=== PATIENT | male | born 1945 | race Asian ===

== ENCOUNTER 2019-09-12 03:54 | Inpatient (IN) | payer OTHER, MEDICAID ==
[~2019-09-12] VITALS: Ht 182.9 cm; Wt 81.4 kg
[2019-09-12] MEDS ORDERED: Acetaminophen 650 MG SUPP RECTAL ONE (04:00)
--- NOTE | 2019-09-12 04:05 | Emergency Room Report ---
History of Present Illness General Chief Complaint: To Be Triaged Source: Medical Record, EMS Present Illness HPI This is a 74-year-old [place] male from [facility]. He has a history of COPD and failure to thrive. He presents with chief complaint of shortness of breath and tachycardia. Onset tonight. Unable to get any other history from patient because of his condition. History is from EMS and jail note. Per EMS, he was tachycardic and hypoxic. No reported cough or fever. No nausea or vomiting. He was hypoxic and was placed on a nonrebreather and brought here. Allergies: Coded Allergies: No Known Allergies (Unverified , 09/12/19) COVID-19 Screening Contact w/high risk pt: Yes Recent Travel to affected area: Yes Experienced COVID-19 symptoms?: Yes COVID-19 symptoms experienced: Shortness of Breath Patient History Past Medical History: see triage record, old chart reviewed, COPD Past Surgical History: other Pertinent Family History: none Social History: Denies: smoking Immunizations: other Reviewed Nursing Documentation: PMH: Agreed; PSxH: Agreed Review of Systems Constitutional: Reports: weakness Respiratory: Reports: shortness of breath All Other Systems: limited - Secondary to condition Physical Exam Sp02 EP Interpretation: abnormal General Appearance: moderate distress, cachetic, lethargic Head: normocephalic, atraumatic Eyes: bilateral eye PERRL, bilateral eye EOMI ENT: hearing grossly normal, normal pharynx Neck: full range of motion, supple, no meningismus Respiratory: chest non-tender, respiratory distress, decreased breath sounds, accessory muscle use Cardiovascular #1: regular rate, rhythm, no murmur, tachycardia Gastrointestinal: normal bowel sounds, non tender, no mass, no organomegaly, no bruit, non-distended Musculoskeletal: back normal, other - Contracted Psychiatric: normal inspection Skin: no rash Procedures Critical Care Time Critical Care Time Critical care is mandated in this patient who presented with sepsis from pneumonia. Patient require my urgent intervention to attenuate the risks of metabolic collapse which may lead to cardiovascular collapse and . Critical care time is 35 minutes excluding any reportable procedure. Critical care time included evaluation, multiple reevaluation, looking at old charts, interpreting laboratory and diagnostic data, discussing case with patient and family and consultants, and charting. Medical Decision Making Diagnostic Impression: Primary Impression: Sepsis Qualified Codes: A41.9 - Sepsis, unspecified organism; R65.20 - Severe sepsis without septic shock; J96.01 - Acute respiratory failure with hypoxia Additional Impressions: HCAP (healthcare-associated pneumonia) Anemia Qualified Codes: D64.9 - Anemia, unspecified Suspected COVID-19 virus infection Acute respiratory failure with hypoxia ER Course Patient presents with sepsis secondary to pneumonia. He is high risk for COVID even though first rapid COVID test negative. Antibiotic started. His tachycardia is probably secondary to infection and fever. Heart rate came down from 140s to 115 right now. Blood pressure stable. Will admit for IV fluid and antibiotics. Prognosis poor. I discussed the case with Dr. Meza who will admit. EKG Diagnostic Results Rate: tachycardiac Rhythm: NSR ST Segments: other - NSST changes Rhythm Strip Diag. Results EP Interpretation: yes Rate: 120 Rhythm: NSR, no PVC's, no ectopy Chest X-Ray Diagnostic Results Chest X-Ray Diagnostic Results : Chest X-Ray Ordered: Yes # of Views/Limited/Complete: 1 View Indication: Shortness of Breath EP Interpretation: Yes Interpretation: no effusion, no pneumothorax, other - copd, b/l infiltrates Impression: Other - copd, b/l infiltrates Electronically Signed by: Sb Brooks MD Status: improved Disposition: ADMITTED INPATIENT Condition: Critical Sb Brooks MD Sep 12, 2019 04:05
[2019-09-12] MEDS ORDERED: NORCO 5-325 TA1 EAC1 ORAL (04:27)
[2019-09-12] MEDS ORDERED: VITAMIN C250 MG ORAL (04:27)
[2019-09-12] MEDS ORDERED: MAALOX ADVANCE770 ML PO (04:27)
[2019-09-12] MEDS ORDERED: PROSCAR5 MG ORAL (04:27)
[2019-09-12] MEDS ORDERED: PROTONIX40 MG ORAL (04:27)
[2019-09-12] MEDS ORDERED: NITRO0.4 SL (04:27)
[2019-09-12] MEDS ORDERED: MULTIVITAMINS1 EAC2 ORAL (04:27)
[2019-09-12] MEDS ORDERED: FLOMAX0.4 MG ORAL (04:27)
[2019-09-12] MEDS ORDERED: FERROUS SULFAT325 MG ORAL (04:27)
[2019-09-12] MEDS ORDERED: COLACE100 MG ORAL (04:27)
[2019-09-12 04:38] VITALS: BP 102/59
[2019-09-12] MEDS ORDERED: dexAMETHasone 10mg/ml Inj IV ONE (04:45)
[2019-09-12] MEDS ORDERED: Cefepime HCl 1 GM in D5W 55 ML IVPB ONE (04:45)
[2019-09-12 05:07] LABS: APPEARANCE,URINE CLEAR; BILIRUBIN, URINE NEGATIVE (NEGATIVE); GLUCOSE, URINE (UA) NEGATIVE (NEGATIVE); KETONES,URINE NEGATIVE (NEGATIVE); LEUKOCYTE ESTERASE ,URINE NEGATIVE (NEGATIVE); NITRITE,URINE NEGATIVE (NEGATIVE); PH,URINE 7 (4.5-8.0); PROTEIN,URINE 1+ (NEGATIVE); UROBILINOGEN,URINE 4 MG/DL (0.0-1.0)
[2019-09-12 05:10] LABS: COLOR,URINE YELLOW
[2019-09-12 05:11] LABS: BASOPHILS % (AUTO) 1.5 % (0.0-2.0); EOSINOPHILS % (AUTO) 1.9 % (0.0-3.0); HEMATOCRIT 25.4 % (42.0-52.0); HEMOGLOBIN 8.5 G/DL (14.2-18.0); MEAN CORPUSCULAR VOLUME 95 FL (80-99); MONOCYTES % (AUTO) 7.1 % (1.0-10.0); NEUTROPHILS % (AUTO) 77.7 % (45.0-75.0); PLATELET COUNT 611 K/UL (150-450); RED BLOOD COUNT 2.67 M/UL (4.70-6.10); RED CELL DISTRIBUTION WIDTH 12.1 % (11.6-14.8); WHITE BLOOD COUNT 6.6 K/UL (4.8-10.8)
--- NOTE | 2019-09-12 05:22 | Diagnostic Imaging Report ---
EXAM: XR Chest, 1 View CLINICAL HISTORY: SOB TECHNIQUE: Frontal view of the chest. COMPARISON: No relevant prior studies available. FINDINGS/IMPRESSION: Severe emphysematous changes with hyperinflation. Correlate for COPD. Airspace opacities within the bilateral lower lobes and right upper lobe, suspicious for superimposed multifocal infiltrate. No pneumothorax. No definite pleural effusion. The heart is enlarged. The aorta is markedly tortuous. Enteric feeding tube terminates in the stomach.
[2019-09-12 05:34] LABS: ANION GAP 10 mmol/L (5-15); BLOOD UREA NITROGEN 22 mg/dL (7-18); CARBON DIOXIDE 25 MMOL/L (21-32); CHLORIDE 98 MMOL/L (98-107); CREATININE 0.9 MG/DL (0.55-1.30); POTASSIUM 4.3 MMOL/L (3.5-5.1); SODIUM 133 MMOL/L (136-145)
[2019-09-12 05:37] LABS: ALANINE AMINOTRANSFERASE 33 U/L (12-78); ALBUMIN 1.8 G/DL (3.4-5.0); ALBUMIN/GLOBULIN RATIO 0.3 (1.0-2.7); ALKALINE PHOSPHATASE 256 U/L (46-116); ASPARTATE AMINO TRANSFERASE 36 U/L (15-37); BILIRUBIN,TOTAL 0.3 MG/DL (0.2-1.0); CKMB 2.2 NG/ML (0.0-3.6); CREATINE KINASE 506 U/L (26-308)
--- NOTE | 2019-09-12 05:53 | Emergency Room Report ---
Sepsis Event Note Evaluation Current Stage of Sepsis: Sepsis Possible Source: Pulmonary Focused Exam Allergies: Coded Allergies: No Known Allergies (Unverified , 09/12/19) Date Exam Occurred: Sep 12, 2019 Time Exam Occurred: 05:53 Laboratory Studies Laboratory Tests Test 09/12/19 04:50 White Blood Count 6.6 K/UL (4.8-10.8) Red Blood Count 2.67 M/UL (4.70-6.10) L Hemoglobin 8.5 G/DL (14.2-18.0) L Hematocrit 25.4 % (42.0-52.0) L Mean Corpuscular Volume 95 FL (80-99) Mean Corpuscular Hemoglobin 31.9 PG (27.0-31.0) H Mean Corpuscular Hemoglobin Concent 33.6 G/DL (32.0-36.0) Red Cell Distribution Width 12.1 % (11.6-14.8) Platelet Count 611 K/UL (150-450) H Mean Platelet Volume 5.3 FL (6.5-10.1) L Neutrophils (%) (Auto) 77.7 % (45.0-75.0) H Lymphocytes (%) (Auto) 12.0 % (20.0-45.0) L Monocytes (%) (Auto) 7.1 % (1.0-10.0) Eosinophils (%) (Auto) 1.9 % (0.0-3.0) Basophils (%) (Auto) 1.5 % (0.0-2.0) Urine Color Yellow Urine Appearance Clear Urine pH 7 (4.5-8.0) Urine Specific [place] 1.005 (1.005-1.035) Urine Protein 1+ (NEGATIVE) H Urine Glucose (UA) Negative (NEGATIVE) Urine Ketones Negative (NEGATIVE) Urine Blood 3+ (NEGATIVE) H Urine Nitrite Negative (NEGATIVE) Urine Bilirubin Negative (NEGATIVE) Urine Urobilinogen 4 MG/DL (0.0-1.0) H Urine Leukocyte Esterase Negative (NEGATIVE) Urine RBC 2-4 /HPF (0 - 0) H Urine WBC 0 /HPF (0 - 0) Urine Squamous Epithelial Cells Few /LPF (NONE/OCC) Urine Bacteria None /HPF (NONE) Sodium Level 133 MMOL/L (136-145) L Potassium Level 4.3 MMOL/L (3.5-5.1) Chloride Level 98 MMOL/L (98-107) Carbon Dioxide Level 25 MMOL/L (21-32) Anion Gap 10 mmol/L (5-15) Blood Urea Nitrogen 22 mg/dL (7-18) H Creatinine 0.9 MG/DL (0.55-1.30) Estimat Glomerular Filtration Rate > 60 mL/min (>60) Glucose Level 233 MG/DL (74-106) H Lactic Acid Level 1.40 mmol/L (0.4-2.0) Calcium Level 8.0 MG/DL (8.5-10.1) L Total Bilirubin 0.3 MG/DL (0.2-1.0) Aspartate Amino Transf (AST/SGOT) 36 U/L (15-37) Alanine Aminotransferase (ALT/SGPT) 33 U/L (12-78) Alkaline Phosphatase 256 U/L (46-116) H Total Creatine Kinase 506 U/L (26-308) H Creatine Kinase MB 2.2 NG/ML (0.0-3.6) Creatine Kinase MB Relative Index 0.4 Troponin I 0.007 ng/mL (0.000-0.056) Total Protein 7.0 G/DL (6.4-8.2) Albumin 1.8 G/DL (3.4-5.0) L Globulin 5.2 g/dL Albumin/Globulin Ratio 0.3 (1.0-2.7) L Vital Signs Last 24 Hour Vital Signs Date Time Temp Pulse Resp B/P (MAP) Pulse Ox O2 Delivery O2 Flow Rate FiO2 09/12/19 04:38 134 33 Non-Rebreather 15.0 09/12/19 04:38 103.5 134 33 102/59 100 Non-Rebreather 15.0 09/12/19 04:01 100.6 143 43 143/43 (76) 97 Non-Rebreather Respiratory Exam: Crackles Cardiovascular Exam: RRR Capillary Refill: Less Than 2 Seconds Peripheral Pulse: Strong Pulse Location: Sb Johns MD Sep 12, 2019 05:53
[2019-09-12 08:00] VITALS: BP 122/67
[2019-09-12] MEDS ORDERED: Vancomycin 1.5gm/NS Premix IVPB ONE (08:30)
[2019-09-12] MEDS ORDERED: Piperacillin/Tazobactam 3.375 GM in NS 110 ML IVPB SCH (08:30)
[2019-09-12] MEDS: D5NS 1,000 ML IV SCH ×2 (08:53→18:35)
[2019-09-12] MEDS: Pantoprazole Inj IVP SCH (08:56)
--- NOTE | 2019-09-12 09:45 | History and Physical Report ---
DATE OF ADMISSION: 09/12/2019 CHIEF COMPLAINT: Respiratory failure. HISTORY OF PRESENT ILLNESS: The patient is an unfortunate 74-year-old male. He has a history of hypertension, diabetes, failure to thrive. He apparently was previously hospitalized at an outside hospital where he underwent workup for failure to thrive. This included a colonoscopy. During the procedure, he apparently developed a bowel perforation several days ago. He was transferred back to the custodial facility. He has been on a pureed diet. He has been doing poorly there. On the day of transfer here, he was noted to be febrile and short of breath and more confused. In the emergency room, he was febrile and tachypneic. He was placed on a non-rebreather. He had x-ray evidence of diffuse pneumonia. His rapid COVID was negative. He is now admitted for further evaluation and care. PAST MEDICAL HISTORY: As above. PAST SURGICAL HISTORY: Includes recent colonoscopy. CURRENT MEDICATIONS: Reconciled and reviewed. ALLERGIES: None. FAMILY HISTORY: None. SOCIAL HISTORY: There is no known history of tobacco, ethanol, or drugs. REVIEW OF SYSTEMS: From the patient is unobtainable as he is nonverbal. PHYSICAL EXAMINATION: VITAL SIGNS: Temperature 103.5, pulse 134, respirations 33, blood pressure 102/59. GENERAL: The patient is chronically ill, thin male. He was unresponsive. Does not open his eyes. Currently on a non-rebreather. HEENT: The head is normocephalic and atraumatic. Mucous membranes are dry. HEART: Regular rate and rhythm. LUNGS: Clear anteriorly. ABDOMEN: Soft, nontender, nondistended. EXTREMITIES: Without clubbing, cyanosis, or edema. LABORATORY DATA: White count 6, hemoglobin , platelets 611,000. Sodium is 133, potassium 4.3, BUN 22. CK of 506. Troponin was negative. UA was clear. Chest x-ray showed diffuse bilateral infiltrates. Rapid COVID was negative downstairs. ASSESSMENT: This is a 74-year-old male with a recent history of bowel perforation, treated conservatively, diabetes, hypertension, admitted with respiratory failure and hypoxemia secondary to pneumonia. PLAN: Repeat COVID PCR. Broad-spectrum IV antibiotics. Pulmonary, Infectious Disease, Cardiology, Surgery evaluations to be obtained. We will check a venous duplex of the legs. The patient will be hydrated. The patient's prognosis appears poor. This has been discussed with the patient's daughter, Maya. She will discuss with the rest of her family about possibly making him DNR, but currently she wants to maintain Full Code Status. Aaron Meza M.D. DR: MARTHA JOB#: [id number] CC:
[2019-09-12] MEDS: Piperacillin/Tazobactam 3.375 GM in NS 110 ML IVPB SCH ×2 (10:31→23:38)
--- NOTE | 2019-09-12 11:45 | Consultation ---
DATE OF CONSULTATION: 09/12/2019 PULMONARY CONSULTATION CONSULTING PHYSICIAN: Keith Diaz MD. REASON FOR CONSULTATION: Respiratory failure, pulmonary infiltrates. HISTORY OF PRESENT ILLNESS: This is a 74-year-old senior care patient. The patient with history of COPD, presents with increasing shortness of breath and significant tachycardia. The patient unable to give any history. The patient was seen and evaluated in the emergency room, was noted to be significantly hypoxemic. No nausea or vomiting. The patient was placed on a non-rebreather. Admitted to the [facility]. The patient is a Full Code per review. The patient's x-ray suggestive of bilateral pulmonary infiltrates. Rapid COVID swab was negative. The patient was admitted with severe sepsis at this time. The patient's care discussed and reviewed. The patient was started on antibiotics. I was called to assist to evaluate further. The patient unable to give any history at this time. PAST MEDICAL HISTORY: Notable for COPD, chronic encephalopathy, chronic pain syndrome, arthritis, BPH. MEDICATIONS: Reviewed. ALLERGIES: Reviewed. SOCIAL HISTORY: The patient is a senior care patient, mobility status unclear. REVIEW OF SYSTEMS: Unobtainable due to the patient's present state. FAMILY HISTORY: Unobtainable due to the patient's present state. PHYSICAL EXAMINATION: VITAL SIGNS: T-max 103.5, heart rate 110, respiratory rate 24, blood pressure 122/67. The patient is 100% on non-rebreather, presently saturating 100%. HEENT: Overall negative. LUNGS: Coarse breath sounds. CARDIAC: Tachycardic. ABDOMEN: Soft. EXTREMITIES: No significant edema. Remainder of exam deferred to possible COVID. LABORATORY DATA: Reviewed. Hemoglobin 8.5, white count normal. Chemistries noted. Sodium 133. Liver enzyme, alkaline phosphatase elevated to 256. Albumin is 1.8. Atrial blood gas 7.41/32/411 on 100%. Imaging of bilateral infiltrates. IMPRESSION: 1. Respiratory failure. 2. Acute hypoxemia. 3. Significant pneumonia, possible COVID. 4. Severe protein-calorie malnutrition. 5. Elevated alkaline phosphatase, possibly due to bone etiology. 6. Significant anemia likely of chronic disease. 7. BPH. RECOMMENDATIONS: Supportive care. IV hydration. IV antibiotics. Isolation for now. DVT prophylaxis. Consider dexamethasone. Pending repeat COVID, although presently negative, but may want to treat empirically. ID evaluation. Venous ultrasound to evaluate further due to immobility. We will follow closely and monitor for changes and the patient may need higher level of care if continues to worsened. Keith Diaz M.D. DR: PAT JOB#: [id number] CC: JOSÉ MIGUEL
--- NOTE | 2019-09-12 11:51 | Consultation ---
History of Present Illness General Date patient seen: Sep 12, 2019 Reason for Hospitalization: Altered Mental Status Present Illness HPI 74 year old male with multiple medical comorbidities presented to [facility] ED from care facility for evaluation of altered status, FTT, abnormal labs, tachypnea. Recent history of colonoscopy with perforation per report at outside facility treated conservatively. was discharged and recently in facility worsening condition. surgery called to evaluate and assist with care. patient seen, chart reviewed, patient examined. patient unable to provide history or participate in exam. ill appearing, fatigued, malnutrition. ng feeding tube in place. febrile, +SOB Allergies: Coded Allergies: No Known Allergies (Unverified , 09/12/19) COVID-19 Screening Contact w/high risk pt: Yes Recent Travel to affected area: Yes Experienced COVID-19 symptoms?: Yes COVID-19 symptoms experienced: Shortness of Breath Medication History Scheduled Ascorbic Acid* (Vitamin C*), 5 ML ORAL DAILY, (Reported) Docusate Sodium* (Colace*), 100 MG ORAL DAILY, (Reported) Ferrous Sulfate* (Ferrous Sulfate*), 330 MG ORAL DAILY, (Reported) Finasteride* (Proscar*), 5 MG ORAL DAILY, (Reported) Multivitamins* (Multivitamins*), 1 TAB ORAL DAILY, (Reported) Pantoprazole* (Protonix*), 40 MG ORAL DAILY, (Reported) Tamsulosin HCl (Flomax), 0.4 MG ORAL DAILY, (Reported) Scheduled PRN Hydrocodone Bit/Acetaminophen 5-325* ([place] 5-325 Tablet*), 1 TAB ORAL Q4H PRN for For Pain, (Reported) Nitroglycerin 0.4MG table* (Nitroglycerin*), 0.4 MG SL .Q5MIN X 3 DOSES PRN for CHEST PAIN, (Reported) Miscellaneous Medications Mag Hydrox/Al Hydrox/Simeth (Maalox Advanced Suspension), 770 ML PO, (Reported) Patient History Limited by: medical condition History Provided By: Medical Record, PMD Healthcare decision maker Resuscitation status Advanced Directive on File Past Medical/Surgical History Past Medical/Surgical History: (1) Fever (2) Shortness of breath (3) Tachycardia (4) Suspected COVID-19 virus infection (5) Anemia (6) Sepsis (7) Acute respiratory failure with hypoxia (8) HCAP (healthcare-associated pneumonia) Review of Systems Review of Symptoms -D-b-w-e-r-a-l- -R-O-S--:- -n-o- -h-m-p-g-h-t- -l-o-s-s- -o-r- -f-e-v-e-r- -F-z-u-d-u-s-m-i-s-i-c-a-l- -R-O-S--:- -n-o- -k-d-b-g-i-p-s-i-o-n- -o-r- -m-o-o-d- -p-m-s-n-g-e-s--,- -n-o- -x-u-z-o-r-y- -l-o-s-s- -Y-o-t-i-o-s-l-m-i-c- -R-O-S--:- -n-o- -o-v-b-u-a-l- -v-b-l-n-g-e-s- -o-r- -e-y-e- -n-j-g-b-o-r-t-i-o-n- -E-N-T- -R-O-S--:- -n-o- -n-a-s-a-l- -z-v-r-q-w-r-t-i-o-n--,- -f-n-x-r-i-n-g- -l-o-s-s--,- -a-w-w-z-w-i-e-s-s- -I-s-d-e-r-g-y- -a-n-d- -U-l-b-m-t-q-l-o-g-y- -R-O-S--:- -n-o- -j-k-s-e-r-g-i-c- -n-j-i-p-t-o-m-s- -o-r- -p-o-q-z-p-r-r-i-a- -V-u-w-j-w-q-r-q-s-i-c-a-l- -a-n-d- -H-o-x-j-q-c-t-i-c- -R-O-S--:- -n-o- -p-s-t-l-l-e-n- -z-v-t-n-d-s--,- -h-l-j-s-u-a-l- -b-w-a-e-d-i-n-g- -o-r- -a-h-s-i-s-i-n-g- -R-g-e-g-v-v-i-n-e- -R-O-S--:- -n-o- -l-k-a-y-u-r-i-a--,- -t-k-e-u-t-v-p-s-i-a- -,- -r-p-o-g-h-t- -w-p-d-n-g-e-s--,- -m-v-g-r-c-j-a-t-u-r-e- -w-r-q-l-l-d-r-a-n-c-e- -M-w-t-j-u-t-a-t-o-r-y- -R-O-S--:- -n-o- -c-o-u-g-h--,- -t-l-w-a-s-z-e-s-s- -o-f- -q-q-s-a-t-h--,- -o-r- -p-q-u-e-z-i-n-g- -N-s-z-f-k-b-g-v-g-c-u-l-a-r- -R-O-S--:- -n-o- -c-h-e-s-t- -p-a-i-n- -o-r- -r-s-v-p-n-e-a- -o-n- -p-z-e-r-t-i-o-n- -J-p-o-g-r-i-h-u-o-g-g-d-i-n-a-l- -R-O-S--:- -x-t-x-i-e-s- -d-r-y-q-d-y-n-a-l- -p-a-i-n--,- -d-u-u-g-h-t- -r-e-d- -b-l-o-o-d- -i-n- -s-t-o-o-l-.- -J-r-y-t-i-y-f-a-f-r-p-k-t-a-l- -R-O-S--:- -n-o- -f-k-m-l-g-i-a-s- -o-r- -e-v-y-c-x-t-l-g-i-a-s- -N-a-h-d-d-s-b-o-u-c-a-l- -R-O-S--:- -n-o- -T-I-A- -o-r- -c-z-r-o-k-e- -i-k-h-p-t-o-m-s- -F-u-e-j-k-f-o-a-w-g-i-c-a-l- -R-O-S--:- -n-o- -n-e-w- -o-r- -c-m-l-n-g-i-n-g- -s-k-i-n- -e-x-l-i-o-n-s--,- -g-v-x-h-e-s- -o-r- -j-r-p-r-i-t-i-s- unable to obtain given medical condition Physical Exam Physical Exam General appearance: mild distress, appears stated age Head: Normocephalic, without obvious abnormality, atraumatic, feeding tube in nares Eyes: conjunctivae/corneas clear. PERRL, EOM's intact. Fundi benign Throat: Lips, mucosa, and tongue normal. Teeth and gums normal Neck: supple, symmetrical, trachea midline, no adenopathy, thyroid: not enlarged, symmetric, no tenderness/mass/nodules, no carotid bruit and no JVD Lungs: clear to auscultation bilaterally Heart: regular rate and rhythm, S1, S2 normal, no murmur, click, rub or gallop Abdomen: soft, non-tender. Bowel sounds normal. No masses, no organomegaly Extremities: extremities normal, atraumatic, no cyanosis or edema Pulses: symmetric Skin: Skin color, texture, turgor normal. No rashes or lesions Neurologic: Grossly normal Last 24 Hour Vital Signs Date Time Temp Pulse Resp B/P (MAP) Pulse Ox O2 Delivery O2 Flow Rate FiO2 09/12/19 08:00 97.3 110 24 122/67 (85) 100 09/12/19 06:15 101.0 118 29 116/61 100 Non-Rebreather 15.0 09/12/19 04:38 134 33 Non-Rebreather 15.0 09/12/19 04:38 103.5 134 33 102/59 100 Non-Rebreather 15.0 09/12/19 04:36 101.0 09/12/19 04:01 100.6 143 43 143/43 (76) 97 Non-Rebreather Intake and Output 09/11/19 09/12/19 19:00 07:00 Intake Total 1055 ml Balance 1055 ml Intake Oral 0 ml IV Total 1055 ml Laboratory Tests Test 09/12/19 04:50 09/12/19 07:32 White Blood Count 6.6 K/UL (4.8-10.8) Red Blood Count 2.67 M/UL (4.70-6.10) L Hemoglobin 8.5 G/DL (14.2-18.0) L Hematocrit 25.4 % (42.0-52.0) L Mean Corpuscular Volume 95 FL (80-99) Mean Corpuscular Hemoglobin 31.9 PG (27.0-31.0) H Mean Corpuscular Hemoglobin Concent 33.6 G/DL (32.0-36.0) Red Cell Distribution Width 12.1 % (11.6-14.8) Platelet Count 611 K/UL (150-450) H Mean Platelet Volume 5.3 FL (6.5-10.1) L Neutrophils (%) (Auto) 77.7 % (45.0-75.0) H Lymphocytes (%) (Auto) 12.0 % (20.0-45.0) L Monocytes (%) (Auto) 7.1 % (1.0-10.0) Eosinophils (%) (Auto) 1.9 % (0.0-3.0) Basophils (%) (Auto) 1.5 % (0.0-2.0) Urine Color Yellow Urine Appearance Clear Urine pH 7 (4.5-8.0) Urine Specific [place] 1.005 (1.005-1.035) Urine Protein 1+ (NEGATIVE) H Urine Glucose (UA) Negative (NEGATIVE) Urine Ketones Negative (NEGATIVE) Urine Blood 3+ (NEGATIVE) H Urine Nitrite Negative (NEGATIVE) Urine Bilirubin Negative (NEGATIVE) Urine Urobilinogen 4 MG/DL (0.0-1.0) H Urine Leukocyte Esterase Negative (NEGATIVE) Urine RBC 2-4 /HPF (0 - 0) H Urine WBC 0 /HPF (0 - 0) Urine Squamous Epithelial Cells Few /LPF (NONE/OCC) Urine Bacteria None /HPF (NONE) Sodium Level 133 MMOL/L (136-145) L Potassium Level 4.3 MMOL/L (3.5-5.1) Chloride Level 98 MMOL/L (98-107) Carbon Dioxide Level 25 MMOL/L (21-32) Anion Gap 10 mmol/L (5-15) Blood Urea Nitrogen 22 mg/dL (7-18) H Creatinine 0.9 MG/DL (0.55-1.30) Estimat Glomerular Filtration Rate > 60 mL/min (>60) Glucose Level 233 MG/DL (74-106) H Lactic Acid Level 1.40 mmol/L (0.4-2.0) Calcium Level 8.0 MG/DL (8.5-10.1) L Total Bilirubin 0.3 MG/DL (0.2-1.0) Aspartate Amino Transf (AST/SGOT) 36 U/L (15-37) Alanine Aminotransferase (ALT/SGPT) 33 U/L (12-78) Alkaline Phosphatase 256 U/L (46-116) H Total Creatine Kinase 506 U/L (26-308) H Creatine Kinase MB 2.2 NG/ML (0.0-3.6) Creatine Kinase MB Relative Index 0.4 Troponin I 0.007 ng/mL (0.000-0.056) Total Protein 7.0 G/DL (6.4-8.2) Albumin 1.8 G/DL (3.4-5.0) L Globulin 5.2 g/dL Albumin/Globulin Ratio 0.3 (1.0-2.7) L Arterial Blood pH 7.418 (7.350-7.450) Arterial Blood Partial Pressure CO2 31.9 mmHg (35.0-45.0) L Arterial Blood Partial Pressure O2 411.0 mmHg (75.0-100.0) H Arterial Blood HCO3 20.1 mmol/L (22.0-26.0) L Arterial Blood Oxygen Saturation 99.5 % (95-100) Arterial Blood Base Excess -3.8 (-2-2) L Sameer Test Positive Microbiology Date/Time Source Procedure Growth Status 09/12/19 04:50 Nasopharynx SARS-CoV-2 RdRp Gene Assay - Final Complete 09/12/19 04:00 Rectum Received Height (Feet): 6 Weight (Pounds): 180 Medications Current Medications Medications (Trade) Dose Ordered Sig/Brooke Route PRN Reason Start Time Stop Time Status Last Admin Dose Admin Dextrose/Sodium Chloride 1,000 ml @ 100 mls/hr Q10H IV 09/12/19 07:30 10/12/19 07:29 09/12/19 08:53 Heparin Sodium (Porcine) (Heparin 5000 units/ml) 5,000 units EVERY 12 HOURS SUBQ 09/12/19 21:00 10/27/19 20:59 Pantoprazole (Protonix) 40 mg DAILY IVP 09/12/19 09:00 10/12/19 08:59 09/12/19 08:56 Piperacillin Sod/ Tazobactam Sod 3.375 gm/Sodium Chloride 110 ml @ 27.5 mls/hr EVERY 8 HOURS IVPB 09/12/19 10:30 09/19/19 10:29 09/12/19 10:31 Vancomycin HCl (Vanco pharmacy to dose) 1 ea DAILY PRN MISC Per rx protocol 09/12/19 07:15 10/12/19 07:14 Vancomycin HCl 750 mg/Sodium Chloride 275 ml @ 183.333 mls/hr Q12HR IVPB 09/12/19 21:00 09/17/19 20:59 Assessment/Plan Problem List: (1) Anemia ICD Codes: D64.9 - Anemia, unspecified SNOMED: 213270026, 515685822 Qualifiers: Qualified Codes: D64.9 - Anemia, unspecified (2) Sepsis Assessment & Plan: febrile, tachycardic, abnormal labs, sob, respiratory decline covid neg in ED recent colonoscopy with perf per report treated conservatively abd exam limited given medical condition but seemingly benign non distended, no pain upon exam CXR noted. labs reviewed KUB pending does not seem to be having acute abdominal process but concerning and ddx given recent history no acute surgical intervention planned will follow with serial exams and recs thank you ICD Codes: A41.9 - Sepsis, unspecified organism SNOMED: 84322711, 529497153 Qualifiers: Qualified Codes: A41.9 - Sepsis, unspecified organism; R65.20 - Severe sepsis without septic shock; J96.01 - Acute respiratory failure with hypoxia (3) Acute respiratory failure with hypoxia ICD Codes: J96.01 - Acute respiratory failure with hypoxia SNOMED: 50085249, 397333869 (4) HCAP (healthcare-associated pneumonia) ICD Codes: J18.9 - Pneumonia, unspecified organism SNOMED: 872167467, 160702475 (5) Fever ICD Codes: R50.9 - Fever, unspecified SNOMED: 779964411 (6) Shortness of breath ICD Codes: R06.02 - Shortness of breath SNOMED: 785904081 (7) Tachycardia ICD Codes: R00.0 - Tachycardia, unspecified SNOMED: 2335494 (8) Suspected COVID-19 virus infection ICD Codes: Z20.828 - Contact with and (suspected) exposure to other viral communicable diseases SNOMED: 005605042 Arnaldo Pinon Sep 12, 2019 11:51
[2019-09-12 12:00] VITALS: BP 107/62
--- NOTE | 2019-09-12 12:00 | Consultation ---
DATE OF CONSULTATION: 09/12/2019 INFECTIOUS DISEASES CONSULTATION CONSULTING PHYSICIAN: Leticia Flanagan MD. REFERRING PHYSICIAN: Aaron Meza MD. REASON FOR CONSULTATION: Pneumonia. HISTORY OF PRESENTING ILLNESS: This is a 74-year-old gentleman with history of diabetes, hypertension, status post colonoscopy and developed a bowel perforation, was transferred back to long term facility, but now he has had increasing fevers along with shortness of breath. He was found to have a pneumonia. His rapid COVID-19 test is negative. An Infectious Diseases consultation has been obtained for antibiotics. PAST MEDICAL HISTORY: 1. History of diabetes. 2. History of hypertension. 3. History of bowel perforation after colonoscopy. SOCIAL HISTORY: No history of smoking, alcohol, or drug use. FAMILY HISTORY: Unknown. REVIEW OF SYSTEMS: Unable to obtain currently. MEDICATIONS: As an inpatient, he is on IV vancomycin, Zosyn, subcutaneous heparin, Protonix. ALLERGIES: No known drug allergies. PHYSICAL EXAMINATION: VITAL SIGNS: Temperature of 97.3, T-max of 103.5, pulse of 110, respiratory rate 24, blood pressure 122/67, O2 saturation of 100%. He is on a non-rebreather mask 15 L of oxygen. Examination deferred due to possibility of COVID-19. LABORATORY AND DIAGNOSTIC DATA: White count 6.68, hemoglobin 8.5, hematocrit 25.4, MCV 95, platelet count of 611,000 with neutrophils of 77%. Sodium 133, potassium 4.3, chloride 98, bicarb 25, BUN 22, creatinine 0.9, glucose 233, calcium 8. Total bilirubin 0.3. AST 36, ALT 33, and alkaline phosphatase 256. CK of 506, CK-MB 2.2. Troponin . Total protein 7. Albumin 1.8. UA showing 0 white cells. COVID-19 rapid test was negative so far. Chest x-ray showing airspace opacities within the bilateral lower lobes and right upper lobe suspicious for multifocal infiltrate. ASSESSMENT: This is a 74-year-old gentleman with history of diabetes, hypertension, who underwent colonoscopy and had a bowel perforation and was now found to have: 1. Possible pneumonia. 2. COVID-19 rapid test is negative. 3. Diabetes. 4. Hypertension. PLAN: 1. Continue IV vancomycin and Zosyn. 2. Continue isolation. 3. COVID-19 test is pending. 4. We will order sputum for Gram stain and culture. 5. We will follow up cultures and adjust antibiotics accordingly. I would like to thank, Dr. Meza, for this consultation. Kentrelluntsylvester Flanagan M.D. DR: HENRI JOB#: [id number] CC: Aaron Meza MD.
[2019-09-12 16:08] VITALS: BP 127/81
--- NOTE | 2019-09-12 16:10 | Diagnostic Imaging Report ---
Indication: Abdominal distention Technique: Supine view of the abdomen Comparison: none Findings: There is a weighted nasogastric feeding tube projected in the gastric fundus. Prominent gas-filled bowel loops are seen in the mid abdomen. Uncertain as to whether these are dilated small bowel or nondilated colon. Stool is seen in the proximal and distal colon. No masses or unusual calcifications. Metallic objects project over the left pelvis. Uncertain as whether internal or external. Impression: Satisfactory position of nasogastric weighted feeding tube Prominent bowel loops, could represent mildly dilated small bowel versus nondilated colon. The former, nonspecific, most likely ileus but could represent small bowel obstruction Other findings as noted Findings discussed by phone with Dr. Pinon at the time of interpretation
[2019-09-12] MEDS ORDERED: D5NS 1000ml IV ONE (19:03)
[2019-09-12] MEDS ORDERED: Tubing IV Secondary IV ONE (19:03)
[2019-09-12 20:00] VITALS: BP 114/86
[2019-09-12] MEDS: Vancomycin 750mg/NS 275ml IVPB SCH ×2 (21:28)
[2019-09-12] MEDS: Heparin 5000 units/ml inj SUBQ SCH (21:30)
[2019-09-13] VITALS (7 sets, daily range): BP systolic 115–133; BP diastolic 45–84
[2019-09-13] MEDS: D5NS 1,000 ML IV SCH ×3 (04:03→22:43)
[2019-09-13] MEDS: Piperacillin/Tazobactam 3.375 GM in NS 110 ML IVPB SCH ×3 (06:06→22:43)
--- NOTE | 2019-09-13 08:19 | Pulmonology Progress Note ---
Subjective Allergies: Coded Allergies: No Known Allergies (Unverified , 09/12/19) Subjective overnight events reviewed care noted on oxygen Objective Last 24 Hour Vital Signs Date Time Temp Pulse Resp B/P (MAP) Pulse Ox O2 Delivery O2 Flow Rate FiO2 09/13/19 04:00 97.7 70 20 119/74 (89) 98 09/13/19 04:00 Non-Rebreather 09/13/19 03:36 105 09/13/19 00:00 Non-Rebreather 09/13/19 00:00 97.8 111 22 133/84 (100) 100 09/13/19 00:00 109 09/12/19 20:00 97.7 108 16 114/86 (95) 100 09/12/19 20:00 Non-Rebreather 09/12/19 19:04 104 09/12/19 16:10 Non-Rebreather 09/12/19 16:08 96.8 110 19 127/81 (96) 100 09/12/19 16:00 96 09/12/19 12:00 96.8 103 21 107/62 (77) 100 09/12/19 12:00 98 09/12/19 12:00 Non-Rebreather Intake and Output 09/12/19 09/13/19 19:00 07:00 Intake Total 924.167 ml 1581.670 ml Output Total 1100 ml 700 ml Balance -175.833 ml 881.670 ml Intake Oral 0 ml 0 ml IV Total 924.167 ml 1581.670 ml Output Urine Total 1100 ml 700 ml Objective deferred due to COVID+ Microbiology Date/Time Source Procedure Growth Status 09/12/19 04:50 Nasopharynx SARS-CoV-2 RdRp Gene Assay - Final Complete 09/12/19 04:00 Rectum Received Current Medications Medications (Trade) Dose Ordered Sig/Brooke Route PRN Reason Start Time Stop Time Status Last Admin Dose Admin Dextrose/Sodium Chloride 1,000 ml @ 100 mls/hr Q10H IV 09/12/19 07:30 10/12/19 07:29 09/13/19 04:03 Heparin Sodium (Porcine) (Heparin 5000 units/ml) 5,000 units EVERY 12 HOURS SUBQ 09/12/19 21:00 10/27/19 20:59 09/12/19 21:30 Pantoprazole (Protonix) 40 mg DAILY IVP 09/12/19 09:00 10/12/19 08:59 09/12/19 08:56 Piperacillin Sod/ Tazobactam Sod 3.375 gm/Sodium Chloride 110 ml @ 27.5 mls/hr EVERY 8 HOURS IVPB 09/12/19 10:30 09/19/19 10:29 09/13/19 06:06 Vancomycin HCl (Vanco pharmacy to dose) 1 ea DAILY PRN MISC Per rx protocol 09/12/19 07:15 10/12/19 07:14 Vancomycin HCl 750 mg/Sodium Chloride 275 ml @ 183.333 mls/hr Q12HR IVPB 09/12/19 21:00 09/17/19 20:59 09/12/19 21:28 Assessment/Plan Assessment/Plan IMPRESSION: 1. Respiratory failure. 2. Acute hypoxemia. 3. Significant pneumonia, possible COVID. 4. Severe protein-calorie malnutrition. 5. Elevated alkaline phosphatase, 6. Significant anemia likely of chronic disease. 7. BPH. PLAN care noted imaging reviewed on oxygen respiratory care on isolation DVT prophylaxis impression, plan, and exam edited and reviewed in detail care discussed with Keith Moore MD Sep 13, 2019 08:19
[2019-09-13] MEDS: Pantoprazole Inj IVP SCH (08:33)
[2019-09-13] MEDS: Heparin 5000 units/ml inj SUBQ SCH (08:34)
[2019-09-13] MEDS: Vancomycin 750mg/NS 275ml IVPB SCH ×4 (08:34→20:39)
[2019-09-13 09:08] LABS: HEMATOCRIT 23.8 % (42.0-52.0); HEMOGLOBIN 7.7 G/DL (14.2-18.0); MEAN CORPUSCULAR VOLUME 96 FL (80-99); PLATELET COUNT 603 K/UL (150-450); RED BLOOD COUNT 2.48 M/UL (4.70-6.10); RED CELL DISTRIBUTION WIDTH 12.2 % (11.6-14.8); WHITE BLOOD COUNT 5.3 K/UL (4.8-10.8)
--- NOTE | 2019-09-13 09:58 | Surgery Progress Note ---
Surgery Progress Note Subjective Additional Comments no acute events kub discussed with radiology. likely ileus no n/v/f/c cxr this AM reviewed at bedside fer parr Objective Last 24 Hour Vital Signs Date Time Temp Pulse Resp B/P (MAP) Pulse Ox O2 Delivery O2 Flow Rate FiO2 09/13/19 08:00 97.3 106 20 126/78 (94) 100 09/13/19 08:00 103 09/13/19 04:00 97.7 70 20 119/74 (89) 98 09/13/19 04:00 Non-Rebreather 09/13/19 03:36 105 09/13/19 00:00 Non-Rebreather 09/13/19 00:00 97.8 111 22 133/84 (100) 100 09/13/19 00:00 109 09/12/19 20:00 97.7 108 16 114/86 (95) 100 09/12/19 20:00 Non-Rebreather 09/12/19 19:04 104 09/12/19 16:10 Non-Rebreather 09/12/19 16:08 96.8 110 19 127/81 (96) 100 09/12/19 16:00 96 09/12/19 12:00 96.8 103 21 107/62 (77) 100 09/12/19 12:00 98 09/12/19 12:00 Non-Rebreather I&O Intake and Output 09/12/19 09/13/19 19:00 07:00 Intake Total 924.167 ml 1581.670 ml Output Total 1100 ml 700 ml Balance -175.833 ml 881.670 ml Intake Oral 0 ml 0 ml IV Total 924.167 ml 1581.670 ml Output Urine Total 1100 ml 700 ml Dressing: other Wound: other Drains: other Cardiovascular: RSR Respiratory: decreased breath sounds Abdomen: soft, distended - mild, non-tender, present bowel sounds Extremities: no edema, no tenderness, no cyanosis Laboratory Tests Test 09/13/19 09:00 White Blood Count 5.3 K/UL (4.8-10.8) Red Blood Count 2.48 M/UL (4.70-6.10) L Hemoglobin 7.7 G/DL (14.2-18.0) L Hematocrit 23.8 % (42.0-52.0) L Mean Corpuscular Volume 96 FL (80-99) Mean Corpuscular Hemoglobin 31.3 PG (27.0-31.0) H Mean Corpuscular Hemoglobin Concent 32.5 G/DL (32.0-36.0) Red Cell Distribution Width 12.2 % (11.6-14.8) Platelet Count 603 K/UL (150-450) H Mean Platelet Volume 5.3 FL (6.5-10.1) L Neutrophils (%) (Auto) % (45.0-75.0) Lymphocytes (%) (Auto) % (20.0-45.0) Monocytes (%) (Auto) % (1.0-10.0) Eosinophils (%) (Auto) % (0.0-3.0) Basophils (%) (Auto) % (0.0-2.0) Differential Total Cells Counted 100 Neutrophils % (Manual) 80 % (45-75) H Lymphocytes % (Manual) 14 % (20-45) L Monocytes % (Manual) 6 % (1-10) Eosinophils % (Manual) 0 % (0-3) Basophils % (Manual) 0 % (0-2) Band Neutrophils 0 % (0-8) Platelet Estimate Increased H Platelet Morphology Normal Hypochromasia 1+ Plan Problems: (1) Anemia (2) Sepsis Assessment & Plan: febrile, tachycardic, abnormal labs, sob, respiratory decline covid neg in ED recent colonoscopy with perf per report treated conservatively abd exam limited given medical condition but seemingly benign non distended, no pain upon exam CXR noted. labs reviewed KUB pending does not seem to be having acute abdominal process but concerning and ddx given recent history no acute surgical intervention planned will follow with serial exams and recs thank you KUB noted.. . likely ileus repeat in AM hold feeds for now IV fluids discussed with team (3) Acute respiratory failure with hypoxia (4) HCAP (healthcare-associated pneumonia) (5) Fever (6) Shortness of breath (7) Tachycardia (8) Suspected COVID-19 virus infection Arnaldo Pinon Sep 13, 2019 09:58
--- NOTE | 2019-09-13 10:29 | Infectious Diseases Prog Note ---
Assessment/Plan Assessment/Plan antibiotics : vancomycin iv, zosyn A 1. pneumonia on 2 liters O2, 100 percent saturation COVID 19 rapid test negative 2. diabetes mellitus 3. hypertension 4. bowel perforation P 1. continue iv vancomycin, zosyn 2. COVID 19 test pending 3. continue isolation Subjective ROS Limited/Unobtainable: Yes Allergies: Coded Allergies: No Known Allergies (Unverified , 09/12/19) Objective Last 24 Hour Vital Signs Date Time Temp Pulse Resp B/P (MAP) Pulse Ox O2 Delivery O2 Flow Rate FiO2 09/13/19 08:00 Nasal Cannula 2.0 09/13/19 08:00 97.3 106 20 126/78 (94) 100 09/13/19 08:00 103 09/13/19 04:00 97.7 70 20 119/74 (89) 98 09/13/19 04:00 Non-Rebreather 09/13/19 03:36 105 09/13/19 00:00 Non-Rebreather 09/13/19 00:00 97.8 111 22 133/84 (100) 100 09/13/19 00:00 109 09/12/19 20:00 97.7 108 16 114/86 (95) 100 09/12/19 20:00 Non-Rebreather 09/12/19 19:04 104 09/12/19 16:10 Non-Rebreather 09/12/19 16:08 96.8 110 19 127/81 (96) 100 09/12/19 16:00 96 09/12/19 12:00 96.8 103 21 107/62 (77) 100 09/12/19 12:00 98 09/12/19 12:00 Non-Rebreather Height (Feet): 6 Weight (Pounds): 180 Microbiology Date/Time Source Procedure Growth Status 09/12/19 04:50 Nasopharynx SARS-CoV-2 RdRp Gene Assay - Final Complete 09/12/19 04:00 Rectum Received Laboratory Tests Test 09/13/19 09:00 White Blood Count 5.3 K/UL (4.8-10.8) Red Blood Count 2.48 M/UL (4.70-6.10) L Hemoglobin 7.7 G/DL (14.2-18.0) L Hematocrit 23.8 % (42.0-52.0) L Mean Corpuscular Volume 96 FL (80-99) Mean Corpuscular Hemoglobin 31.3 PG (27.0-31.0) H Mean Corpuscular Hemoglobin Concent 32.5 G/DL (32.0-36.0) Red Cell Distribution Width 12.2 % (11.6-14.8) Platelet Count 603 K/UL (150-450) H Mean Platelet Volume 5.3 FL (6.5-10.1) L Neutrophils (%) (Auto) % (45.0-75.0) Lymphocytes (%) (Auto) % (20.0-45.0) Monocytes (%) (Auto) % (1.0-10.0) Eosinophils (%) (Auto) % (0.0-3.0) Basophils (%) (Auto) % (0.0-2.0) Differential Total Cells Counted 100 Neutrophils % (Manual) 80 % (45-75) H Lymphocytes % (Manual) 14 % (20-45) L Monocytes % (Manual) 6 % (1-10) Eosinophils % (Manual) 0 % (0-3) Basophils % (Manual) 0 % (0-2) Band Neutrophils 0 % (0-8) Platelet Estimate Increased H Platelet Morphology Normal Hypochromasia 1+ Current Medications Medications (Trade) Dose Ordered Sig/Brooke Route PRN Reason Start Time Stop Time Status Last Admin Dose Admin Dextrose (Dextrose 50%) 25 ml Q30M PRN IV Hypoglycemia 09/13/19 09:45 12/12/19 09:44 Dextrose (Dextrose 50%) 50 ml Q30M PRN IV Hypoglycemia 09/13/19 09:45 12/12/19 09:44 Dextrose/Sodium Chloride 1,000 ml @ 100 mls/hr Q10H IV 09/12/19 07:30 10/12/19 07:29 09/13/19 08:35 Heparin Sodium (Porcine) (Heparin 5000 units/ml) 5,000 units EVERY 12 HOURS SUBQ 09/12/19 21:00 10/27/19 20:59 09/12/19 21:30 Insulin Aspart (NovoLOG) BEFORE MEALS AND HS SUBQ 09/13/19 11:30 12/12/19 11:29 Pantoprazole (Protonix) 40 mg DAILY IVP 09/12/19 09:00 10/12/19 08:59 09/13/19 08:33 Piperacillin Sod/ Tazobactam Sod 3.375 gm/Sodium Chloride 110 ml @ 27.5 mls/hr EVERY 8 HOURS IVPB 09/12/19 10:30 09/19/19 10:29 09/13/19 06:06 Vancomycin HCl (Vanco pharmacy to dose) 1 ea DAILY PRN MISC Per rx protocol 09/12/19 07:15 10/12/19 07:14 Vancomycin HCl 750 mg/Sodium Chloride 275 ml @ 183.333 mls/hr Q12HR IVPB 09/12/19 21:00 09/17/19 20:59 09/13/19 08:34 Leticia Flanagan MD Sep 13, 2019 10:29
[2019-09-13] MEDS: NovoLOG Insulin Flexpen SUBQ SCH ×3 (11:30→21:00)
[2019-09-13] MEDS ORDERED: NovoLOG Insulin Flexpen SUBQ SCH (11:50)
--- NOTE | 2019-09-13 12:10 | Diagnostic Imaging Report ---
Indication: Tortuous of breath Technique: One view of the chest Comparison: 09/12/2019 Findings: Stable satisfactory position of weighted feeding tube. Diffuse right lung infiltrates and left perihilar and basilar infiltrates are unchanged. The heart size is normal. The pleural spaces are clear Impression: Unchanged, over one day, findings as above.
--- NOTE | 2019-09-13 15:23 | Diagnostic Imaging Report ---
Indication: Reason For Exam: DVT Technique: Grayscale and duplex images of the bilateral lower extremity veins Comparison: None Findings: Bilaterally, grayscale and duplex images demonstrate no evidence of intraluminal thrombus. Normal phasic Doppler waveforms, demonstrating normal augmentation response and no evidence of valvular insufficiency. Greater saphenous vein(s) and tibial veins are patent. Normal compressibility. Impression: Negative for evidence of lower extremity deep venous thrombosis bilaterally
--- NOTE | 2019-09-13 16:26 | General Progress Note ---
Assessment/Plan Problem List: (1) Bowel perforation ICD Codes: K63.1 - Perforation of intestine (nontraumatic) SNOMED: 76035122 (2) Anemia ICD Codes: D64.9 - Anemia, unspecified SNOMED: 924156506, 506486198 Qualifiers: Qualified Codes: D64.9 - Anemia, unspecified (3) Sepsis ICD Codes: A41.9 - Sepsis, unspecified organism SNOMED: 82004157, 466136121 Qualifiers: Qualified Codes: A41.9 - Sepsis, unspecified organism; R65.20 - Severe sepsis without septic shock; J96.01 - Acute respiratory failure with hypoxia (4) Tachycardia ICD Codes: R00.0 - Tachycardia, unspecified SNOMED: 7824273 (5) Fever ICD Codes: R50.9 - Fever, unspecified SNOMED: 290628611 (6) HCAP (healthcare-associated pneumonia) ICD Codes: J18.9 - Pneumonia, unspecified organism SNOMED: 167248316, 278221225 (7) Acute respiratory failure with hypoxia ICD Codes: J96.01 - Acute respiratory failure with hypoxia SNOMED: 94137776, 017088284 Status: stable Assessment/Plan: stable cont current rx wean o2 resp rx suctioning as needed IVF monitor h/h check iron panel and stool ob may need transfusion tomorrow PPI No chest compressions. Intubation OK per DTR Subjective ROS Limited/Unobtainable: No Constitutional: Reports: malaise, weakness HEENT: Reports: no symptoms Cardiovascular: Reports: no symptoms Respiratory: Reports: cough, SOB with excertion, SOB at rest Gastrointestinal/Abdominal: Reports: no symptoms Genitourinary: Reports: no symptoms Neurologic/Psychiatric: Reports: emotional problems, pre-existing deficit Endocrine: Reports: no symptoms Hematologic/Lymphatic: Reports: no symptoms Allergies: Coded Allergies: No Known Allergies (Unverified , 09/12/19) All Systems: reviewed and negative except above Subjective no events. stable on 2L NC. poorly responsive. no fever or chills. +sob but seems less congestion. off venti mask now. decreased h/h noted. no bleeding. Objective Last 24 Hour Vital Signs Date Time Temp Pulse Resp B/P (MAP) Pulse Ox O2 Delivery O2 Flow Rate FiO2 09/13/19 15:56 111 09/13/19 12:00 97.7 106 20 127/73 (91) 100 09/13/19 12:00 105 09/13/19 12:00 Nasal Cannula 2.0 09/13/19 11:30 97.7 106 20 125/45 (71) 100 09/13/19 08:00 Nasal Cannula 2.0 09/13/19 08:00 97.3 106 20 126/78 (94) 100 09/13/19 08:00 103 09/13/19 04:00 97.7 70 20 119/74 (89) 98 09/13/19 04:00 Non-Rebreather 09/13/19 03:36 105 09/13/19 00:00 Non-Rebreather 09/13/19 00:00 97.8 111 22 133/84 (100) 100 09/13/19 00:00 109 09/12/19 20:00 97.7 108 16 114/86 (95) 100 09/12/19 20:00 Non-Rebreather 09/12/19 19:04 104 Intake and Output 09/12/19 09/13/19 19:00 07:00 Intake Total 924.167 ml 1581.670 ml Output Total 1100 ml 700 ml Balance -175.833 ml 881.670 ml Intake Oral 0 ml 0 ml IV Total 924.167 ml 1581.670 ml Output Urine Total 1100 ml 700 ml Laboratory Tests 09/13/19 09:00: White Blood Count 5.3, Red Blood Count 2.48L, Hemoglobin 7.7L, Hematocrit 23.8L , Mean Corpuscular Volume 96, Mean Corpuscular Hemoglobin 31.3H, Mean Corpuscular Hemoglobin Concent 32.5, Red Cell Distribution Width 12.2, Platelet Count 603H, Mean Platelet Volume 5.3L, Neutrophils (%) (Auto) , Lymphocytes (%) (Auto) , Monocytes (%) (Auto) , Eosinophils (%) (Auto) , Basophils (%) (Auto) , Differential Total Cells Counted 100, Neutrophils % (Manual) 80H, Lymphocytes % (Manual) 14L, Monocytes % (Manual) 6, Eosinophils % (Manual) 0, Basophils % ( Manual) 0, Band Neutrophils 0, Platelet Estimate IncreasedH, Platelet Morphology Normal, Hypochromasia 1+ 09/13/19 11:41: POC Whole Blood Glucose 153H Height (Feet): 6 Weight (Pounds): 180 General Appearance: WD/WN, lethargic, confused, cachetic EENT: PERRL/EOMI, normal ENT inspection Neck: non-tender, normal alignment Cardiovascular: normal rate, regular rhythm Respiratory/Chest: no respiratory distress, no accessory muscle use, rhonchi - bilaterally Abdomen: normal bowel sounds, non tender, soft, no organomegaly, no mass Edema: no edema noted Arm (L), no edema noted Arm (R), no edema noted Leg (L), no edema noted Leg (R), no edema noted Pedal (L), no edema noted Pedal (R), no edema noted Generalized Neurologic: disoriented, aphasia Skin: normal pigmentation Lymphatic: normal anterior cervical (L), normal anterior cervical (R) Aaron Meza MD Sep 13, 2019 16:26
[2019-09-13] MEDS ORDERED: Vancomycin 1 GM in NS 275 ML IVPB SCH (22:00)
[2019-09-14] VITALS: BP 123/67
--- NOTE | 2019-09-14 01:00 | Progress Note ---
DATE: 09/13/2019 CARDIOLOGY PROGRESS NOTE SUBJECTIVE: Patient remains with shortness of breath. Abdominal distention and signs of radiographic signs of ileus is noted. No acute perforation seen or free air. PHYSICAL EXAMINATION: GENERAL: Blood pressure 127/73, heart rate 106, respirations 20, afebrile, oxygen saturation 100% on 2 liters now. LUNGS: Bilateral rales. CARDIAC: Regular rhythm and rate. Normal S1, S2. ABDOMEN: Distended and soft. EXTREMITIES: No edema. LABORATORY DATA: White count 5.3, hemoglobin 7.7. Lactic acid 1.4. IMPRESSION: 1. Healthcare-associated pneumonia. 2. Ileus. 3. Severe sepsis. 4. Anemia. 5. Sinus tachycardia. 6. Type 2 diabetes mellitus. PLAN: 1. Antimicrobials. 2. Bowel rest. 3. Hydration. 4. May need transfusion. 5. Insulin coverage by sliding scale. 6. DVT prophylaxis. 7. Serial imaging studies of the abdomen. 8. NPO for now. Avila Ramos M.D. DR: MACEY JOB#: [id number] CC:
--- NOTE | 2019-09-14 01:14 | Consultation ---
DATE OF CONSULTATION: 09/12/2019 CARDIOLOGY CONSULTATION CONSULTING PHYSICIAN: Avila Ramos MD. REASON FOR CONSULTATION: Severe sepsis and respiratory failure. HISTORY OF PRESENT ILLNESS: This is a 74-year-old male residing in a half-way facility and recently hospitalized for complications of abdominal perforation was transferred to this emergency room for evaluation of acute shortness of breath and fever. In the emergency room, he was placed on a non-rebreather mask. Initial rapid COVID-19 swab was negative. In view of his acuity of his presentation and severity of his condition, cardiovascular consultation has been requested. PAST MEDICAL HISTORY: 1. Type 2 diabetes mellitus. 2. Prostatic hypertrophy. 3. Hypertension. 4. Cerebrovascular disease. 5. Anemia. ALLERGIES: None known. MEDICATIONS: Prior to admission, reviewed and reconciled. FAMILY HISTORY: Noncontributory. SOCIAL HISTORY: No record available regarding prior history of smoking, alcohol, or substance abuse. Presently, resides in a half-way facility. REVIEW OF SYSTEMS: Again, not obtainable from patient due to the severity of his condition. Hospital and [facility] records have been reviewed with 20 minutes time spent and all available pertinent data has been documented above. PHYSICAL EXAMINATION: VITAL SIGNS: Temperature 103.5, blood pressure 102/59, heart rate 134, respiratory rate 33, oxygen saturation on a non-rebreather mask at 15 liters is 100%. GENERAL: Ill-appearing. Moderate respiratory distress. HEENT: Temporal wasting. LUNGS: Accessory muscle use. Bilateral rales and rhonchi. CARDIAC: Regular rhythm. Rapid rate. Normal S1, S2. ABDOMEN: Slightly distended, but soft. No guarding or rebound. EXTREMITIES: Without edema. Distal pulses palpable. Capillary refill is diminished. No mottling. Lethargic, but moves all extremities. LABORATORY DATA: White count 6.6, hemoglobin 8.5. ABG 7.42, 32, 411. Troponin is negative. Lactic acid normal. Albumin 1.8. CK 506, MB negative. Liver function within normal limits. BUN 22, creatinine 0.9, bicarb 25, sodium 133, potassium 4.3. IMPRESSION: 1. Respiratory failure. 2. Severe sepsis. 3. Hypoxia. 4. Sinus tachycardia. 5. Fevers. 6. Hypovolemia and dehydration. 7. Healthcare-acquired pneumonia. 8. Possible ileus. 9. Condition critical. 10. Prognosis guarded. PLAN: 1. Cardiac monitoring. 2. IV antimicrobials. 3. Oxygenation. 4. Venous duplex scan. 5. Volume support. 6. NPO for now. 7. We will follow and make recommendations as needed. Avila Ramos M.D. DR: MACEY JOB#: [id number] CC:
[2019-09-14 04:00] VITALS: BP 123/67
[2019-09-14 05:29] LABS: HEMATOCRIT 22.5 % (42.0-52.0); HEMOGLOBIN 7.3 G/DL (14.2-18.0); MEAN CORPUSCULAR VOLUME 96 FL (80-99); PLATELET COUNT 618 K/UL (150-450); RED BLOOD COUNT 2.33 M/UL (4.70-6.10); RED CELL DISTRIBUTION WIDTH 12.3 % (11.6-14.8); WHITE BLOOD COUNT 6.9 K/UL (4.8-10.8)
[2019-09-14 06:00] LABS: ALANINE AMINOTRANSFERASE 32 U/L (12-78); ALBUMIN 1.5 G/DL (3.4-5.0); ALBUMIN/GLOBULIN RATIO 0.4 (1.0-2.7); ALKALINE PHOSPHATASE 162 U/L (46-116); ANION GAP 11 mmol/L (5-15); ASPARTATE AMINO TRANSFERASE 39 U/L (15-37); BILIRUBIN,TOTAL 0.2 MG/DL (0.2-1.0); BLOOD UREA NITROGEN 15 mg/dL (7-18); CALCIUM 7.5 MG/DL (8.5-10.1); CARBON DIOXIDE 23 MMOL/L (21-32); CHLORIDE 111 MMOL/L (98-107); CREATININE 0.7 MG/DL (0.55-1.30); POTASSIUM 2.8 MMOL/L (3.5-5.1); SODIUM 144 MMOL/L (136-145)
[2019-09-14] MEDS: Vancomycin 1 GM in NS 275 ML IVPB SCH ×2 (06:17→19:22)
[2019-09-14] MEDS: Piperacillin/Tazobactam 3.375 GM in NS 110 ML IVPB SCH ×3 (06:18→22:29)
[2019-09-14] MEDS: NovoLOG Insulin Flexpen SUBQ SCH ×4 (06:18→20:20)
[2019-09-14 06:42] LABS: % IRON SATURATION 20 % (15-50); IRON 25 ug/dL (50-175); TOTAL IRON BINDING CAPACITY 124 ug/dL (250-450)
[2019-09-14 08:00] VITALS: BP 148/75
--- NOTE | 2019-09-14 08:56 | General Progress Note ---
Assessment/Plan Problem List: (1) Bowel perforation ICD Codes: K63.1 - Perforation of intestine (nontraumatic) SNOMED: 23064495 (2) Anemia ICD Codes: D64.9 - Anemia, unspecified SNOMED: 605303769, 467334138 Qualifiers: Qualified Codes: D64.9 - Anemia, unspecified (3) Sepsis ICD Codes: A41.9 - Sepsis, unspecified organism SNOMED: 62628274, 665688619 Qualifiers: Qualified Codes: A41.9 - Sepsis, unspecified organism; R65.20 - Severe sepsis without septic shock; J96.01 - Acute respiratory failure with hypoxia (4) Tachycardia ICD Codes: R00.0 - Tachycardia, unspecified SNOMED: 0099802 (5) Fever ICD Codes: R50.9 - Fever, unspecified SNOMED: 981972087 (6) HCAP (healthcare-associated pneumonia) ICD Codes: J18.9 - Pneumonia, unspecified organism SNOMED: 255616866, 979501169 (7) Acute respiratory failure with hypoxia ICD Codes: J96.01 - Acute respiratory failure with hypoxia SNOMED: 04637920, 968929301 Status: stable Assessment/Plan: stable/improving cont current rx wean o2 resp rx suctioning as needed IVF monitor h/h check iron panel and stool ob transfuse 1 unit- d/w dtr she agrees. risk and benefits d/w dtr PPI No chest compressions. Intubation OK per DTR Subjective ROS Limited/Unobtainable: Yes Constitutional: Reports: malaise, weakness HEENT: Reports: no symptoms Cardiovascular: Reports: no symptoms Respiratory: Reports: shortness of breath Gastrointestinal/Abdominal: Reports: no symptoms Genitourinary: Reports: no symptoms Neurologic/Psychiatric: Reports: no symptoms Endocrine: Reports: no symptoms Hematologic/Lymphatic: Reports: no symptoms Allergies: Coded Allergies: No Known Allergies (Unverified , 09/12/19) All Systems: reviewed and negative except above Subjective no events. low k and h/h noted. no reports of bleeding. more alert. smiles. on iv abx. still with infiltrates on cxr Objective Last 24 Hour Vital Signs Date Time Temp Pulse Resp B/P (MAP) Pulse Ox O2 Delivery O2 Flow Rate FiO2 09/14/19 04:00 97.3 107 22 123/67 (85) 97 7/8/20 04:00 Nasal Cannula 2.0 09/14/19 04:00 111 09/14/19 00:00 Nasal Cannula 2.0 09/14/19 00:00 97.3 101 22 123/67 (85) 97 09/14/19 00:00 109 09/13/19 20:00 Nasal Cannula 2.0 09/13/19 20:00 98.3 104 20 115/65 (82) 100 09/13/19 16:00 97.9 109 20 115/65 (82) 100 09/13/19 16:00 Nasal Cannula 2.0 09/13/19 15:56 111 09/13/19 12:00 97.7 106 20 127/73 (91) 100 09/13/19 12:00 105 09/13/19 12:00 Nasal Cannula 2.0 09/13/19 11:30 97.7 106 20 125/45 (71) 100 Intake and Output 09/13/19 09/14/19 19:00 07:00 Output Total 600 ml 700 ml Balance -600 ml -700 ml Output Urine Total 600 ml 700 ml Laboratory Tests 09/13/19 09:00: White Blood Count 5.3, Red Blood Count 2.48L, Hemoglobin 7.7L, Hematocrit 23.8L , Mean Corpuscular Volume 96, Mean Corpuscular Hemoglobin 31.3H, Mean Corpuscular Hemoglobin Concent 32.5, Red Cell Distribution Width 12.2, Platelet Count 603H, Mean Platelet Volume 5.3L, Neutrophils (%) (Auto) , Lymphocytes (%) (Auto) , Monocytes (%) (Auto) , Eosinophils (%) (Auto) , Basophils (%) (Auto) , Differential Total Cells Counted 100, Neutrophils % (Manual) 80H, Lymphocytes % (Manual) 14L, Monocytes % (Manual) 6, Eosinophils % (Manual) 0, Basophils % ( Manual) 0, Band Neutrophils 0, Platelet Estimate IncreasedH, Platelet Morphology Normal, Hypochromasia 1+ 09/13/19 11:41: POC Whole Blood Glucose 153H 09/13/19 17:23: POC Whole Blood Glucose [Pending] 09/13/19 20:00: Vancomycin Level Trough 11.0 09/13/19 20:42: POC Whole Blood Glucose 107H 09/13/19 21:34: POC Whole Blood Glucose [Pending] 09/14/19 04:35: White Blood Count 6.9, Red Blood Count 2.33L, Hemoglobin 7.3L, Hematocrit 22.5L , Mean Corpuscular Volume 96, Mean Corpuscular Hemoglobin 31.2H, Mean Corpuscular Hemoglobin Concent 32.4, Red Cell Distribution Width 12.3, Platelet Count 618H, Mean Platelet Volume 5.2L, Neutrophils (%) (Auto) , Lymphocytes (%) (Auto) , Monocytes (%) (Auto) , Eosinophils (%) (Auto) , Basophils (%) (Auto) , Sodium Level 144, Potassium Level 2.8L, Chloride Level 111H, Carbon Dioxide Level 23, Anion Gap 11, Blood Urea Nitrogen 15, Creatinine 0.7, Estimat Glomerular Filtration Rate > 60, Glucose Level 134H, Calcium Level 7.5L, Magnesium Level 1.7L, Iron Level 25L, Total Iron Binding Capacity 124L, Percent Iron Saturation 20, Unsaturated Iron Binding 99L, Total Bilirubin 0.2, Aspartate Amino Transf (AST/SGOT) 39H, Alanine Aminotransferase (ALT/SGPT) 32, Alkaline Phosphatase 162H, Total Protein 5.7L, Albumin 1.5L, Globulin 4.2, Albumin/Globulin Ratio 0.4L Height (Feet): 6 Weight (Pounds): 180 Objective General Appearance: WD/WN, lethargic, confused, cachetic EENT: PERRL/EOMI, normal ENT inspection Neck: non-tender, normal alignment Cardiovascular: normal rate, regular rhythm Respiratory/Chest: no respiratory distress, no accessory muscle use, rhonchi - bilaterally Abdomen: normal bowel sounds, non tender, soft, no organomegaly, no mass Edema: no edema noted Arm (L), no edema noted Arm (R), no edema noted Leg (L), no edema noted Leg (R), no edema noted Pedal (L), no edema noted Pedal (R), no edema noted Generalized Neurologic: disoriented, aphasia Skin: normal pigmentation Lymphatic: normal anterior cervical (L), normal anterior cervical (R) Aaron Meza MD Sep 14, 2019 08:56
--- NOTE | 2019-09-14 09:17 | Surgery Progress Note ---
Surgery Progress Note Subjective Additional Comments no acute events comfortable stable no n/v/f/c Objective Last 24 Hour Vital Signs Date Time Temp Pulse Resp B/P (MAP) Pulse Ox O2 Delivery O2 Flow Rate FiO2 09/14/19 04:00 97.3 107 22 123/67 (85) 97 09/14/19 04:00 Nasal Cannula 2.0 09/14/19 04:00 111 09/14/19 00:00 Nasal Cannula 2.0 09/14/19 00:00 97.3 101 22 123/67 (85) 97 09/14/19 00:00 109 09/13/19 20:00 Nasal Cannula 2.0 09/13/19 20:00 98.3 104 20 115/65 (82) 100 09/13/19 16:00 97.9 109 20 115/65 (82) 100 09/13/19 16:00 Nasal Cannula 2.0 09/13/19 15:56 111 09/13/19 12:00 97.7 106 20 127/73 (91) 100 09/13/19 12:00 105 09/13/19 12:00 Nasal Cannula 2.0 09/13/19 11:30 97.7 106 20 125/45 (71) 100 I&O Intake and Output 09/13/19 09/14/19 19:00 07:00 Output Total 600 ml 700 ml Balance -600 ml -700 ml Output Urine Total 600 ml 700 ml Cardiovascular: RSR Respiratory: clear, decreased breath sounds Abdomen: soft, non-tender, present bowel sounds Extremities: no cyanosis Laboratory Tests Test 09/13/19 11:41 09/13/19 17:23 09/13/19 20:00 09/13/19 20:42 POC Whole Blood Glucose 153 MG/DL (74-106) H Pending 107 MG/DL (74-106) H Vancomycin Level Trough 11.0 ug/mL (5.0-12.0) Test 09/13/19 21:34 09/14/19 04:35 POC Whole Blood Glucose Pending White Blood Count 6.9 K/UL (4.8-10.8) Red Blood Count 2.33 M/UL (4.70-6.10) L Hemoglobin 7.3 G/DL (14.2-18.0) L Hematocrit 22.5 % (42.0-52.0) L Mean Corpuscular Volume 96 FL (80-99) Mean Corpuscular Hemoglobin 31.2 PG (27.0-31.0) H Mean Corpuscular Hemoglobin Concent 32.4 G/DL (32.0-36.0) Red Cell Distribution Width 12.3 % (11.6-14.8) Platelet Count 618 K/UL (150-450) H Mean Platelet Volume 5.2 FL (6.5-10.1) L Neutrophils (%) (Auto) % (45.0-75.0) Lymphocytes (%) (Auto) % (20.0-45.0) Monocytes (%) (Auto) % (1.0-10.0) Eosinophils (%) (Auto) % (0.0-3.0) Basophils (%) (Auto) % (0.0-2.0) Sodium Level 144 MMOL/L (136-145) Potassium Level 2.8 MMOL/L (3.5-5.1) L Chloride Level 111 MMOL/L (98-107) H Carbon Dioxide Level 23 MMOL/L (21-32) Anion Gap 11 mmol/L (5-15) Blood Urea Nitrogen 15 mg/dL (7-18) Creatinine 0.7 MG/DL (0.55-1.30) Estimat Glomerular Filtration Rate > 60 mL/min (>60) Glucose Level 134 MG/DL (74-106) H Calcium Level 7.5 MG/DL (8.5-10.1) L Magnesium Level 1.7 MG/DL (1.8-2.4) L Iron Level 25 ug/dL (50-175) L Total Iron Binding Capacity 124 ug/dL (250-450) L Percent Iron Saturation 20 % (15-50) Unsaturated Iron Binding 99 ug/dL (112-346) L Total Bilirubin 0.2 MG/DL (0.2-1.0) Aspartate Amino Transf (AST/SGOT) 39 U/L (15-37) H Alanine Aminotransferase (ALT/SGPT) 32 U/L (12-78) Alkaline Phosphatase 162 U/L (46-116) H Total Protein 5.7 G/DL (6.4-8.2) L Albumin 1.5 G/DL (3.4-5.0) L Globulin 4.2 g/dL Albumin/Globulin Ratio 0.4 (1.0-2.7) L Plan Problems: (1) Anemia (2) Sepsis Assessment & Plan: febrile, tachycardic, abnormal labs, sob, respiratory decline covid neg in ED recent colonoscopy with perf per report treated conservatively abd exam limited given medical condition but seemingly benign non distended, no pain upon exam CXR noted. labs reviewed KUB pending does not seem to be having acute abdominal process but concerning and ddx given recent history no acute surgical intervention planned will follow with serial exams and recs thank you IVAN noted.. . likely ileus repeat in AM hold feeds for now IV fluids discussed with team (3) Acute respiratory failure with hypoxia (4) HCAP (healthcare-associated pneumonia) (5) Fever (6) Shortness of breath (7) Tachycardia (8) Suspected COVID-19 virus infection Arnaldo Pinon Sep 14, 2019 09:17
[2019-09-14] MEDS: D5NS 1,000 ML IV SCH ×2 (09:30→19:23)
[2019-09-14] MEDS ORDERED: Vancomycin 1 GM in NS 275 ML IVPB SCH (10:00)
[2019-09-14] MEDS: Pantoprazole Inj IVP SCH (10:06)
--- NOTE | 2019-09-14 10:28 | Infectious Diseases Prog Note ---
Assessment/Plan Assessment/Plan antibiotics : vancomycin iv, zosyn A 1. pneumonia COVID 19 rapid test negative x 2 2. diabetes mellitus 3. hypertension 4. bowel perforation P 1. continue iv vancomycin, zosyn 2. sputum culture 3. will follow up cultures 4. d.c isolation Subjective ROS Limited/Unobtainable: Yes Allergies: Coded Allergies: No Known Allergies (Unverified , 09/12/19) Objective Last 24 Hour Vital Signs Date Time Temp Pulse Resp B/P (MAP) Pulse Ox O2 Delivery O2 Flow Rate FiO2 09/14/19 04:00 97.3 107 22 123/67 (85) 97 09/14/19 04:00 Nasal Cannula 2.0 09/14/19 04:00 111 09/14/19 00:00 Nasal Cannula 2.0 09/14/19 00:00 97.3 101 22 123/67 (85) 97 09/14/19 00:00 109 09/13/19 20:00 Nasal Cannula 2.0 09/13/19 20:00 98.3 104 20 115/65 (82) 100 09/13/19 16:00 97.9 109 20 115/65 (82) 100 09/13/19 16:00 Nasal Cannula 2.0 09/13/19 15:56 111 09/13/19 12:00 97.7 106 20 127/73 (91) 100 09/13/19 12:00 105 09/13/19 12:00 Nasal Cannula 2.0 09/13/19 11:30 97.7 106 20 125/45 (71) 100 Height (Feet): 6 Weight (Pounds): 180 Respiratory/Chest: lungs clear Cardiovascular: normal rate, regular rhythm, no gallop/murmur Abdomen: soft, non tender Extremities: no edema Microbiology Date/Time Source Procedure Growth Status 09/12/19 04:00 Blood Blood Culture - Preliminary NO GROWTH AFTER 24 HOURS Resulted 09/12/19 03:45 Blood Blood Culture - Preliminary NO GROWTH AFTER 24 HOURS Resulted 09/12/19 16:00 Nasopharynx Coronavirus COVID-19 PCR ([facility]) - Final Complete 09/12/19 04:50 Nasopharynx SARS-CoV-2 RdRp Gene Assay - Final Complete 09/12/19 04:00 Nasal Nares MRSA Culture - Final NO METHICILLIN RESISTANT STAPH AUREUS... Complete 09/12/19 04:00 Rectum VRE Culture - Final NO VANCOMYCIN RESISTANT ENTEROCOCCUS ... Complete 09/12/19 04:00 Rectum - Final NO CARBAPENEM-RESISTANT ENTEROBACTERI... Complete Laboratory Tests Test 09/13/19 11:41 09/13/19 17:23 09/13/19 20:00 09/13/19 20:42 POC Whole Blood Glucose 153 MG/DL (74-106) H Pending 107 MG/DL (74-106) H Vancomycin Level Trough 11.0 ug/mL (5.0-12.0) Test 09/13/19 21:34 09/14/19 04:35 POC Whole Blood Glucose Pending White Blood Count 6.9 K/UL (4.8-10.8) Red Blood Count 2.33 M/UL (4.70-6.10) L Hemoglobin 7.3 G/DL (14.2-18.0) L Hematocrit 22.5 % (42.0-52.0) L Mean Corpuscular Volume 96 FL (80-99) Mean Corpuscular Hemoglobin 31.2 PG (27.0-31.0) H Mean Corpuscular Hemoglobin Concent 32.4 G/DL (32.0-36.0) Red Cell Distribution Width 12.3 % (11.6-14.8) Platelet Count 618 K/UL (150-450) H Mean Platelet Volume 5.2 FL (6.5-10.1) L Neutrophils (%) (Auto) % (45.0-75.0) Lymphocytes (%) (Auto) % (20.0-45.0) Monocytes (%) (Auto) % (1.0-10.0) Eosinophils (%) (Auto) % (0.0-3.0) Basophils (%) (Auto) % (0.0-2.0) Sodium Level 144 MMOL/L (136-145) Potassium Level 2.8 MMOL/L (3.5-5.1) L Chloride Level 111 MMOL/L (98-107) H Carbon Dioxide Level 23 MMOL/L (21-32) Anion Gap 11 mmol/L (5-15) Blood Urea Nitrogen 15 mg/dL (7-18) Creatinine 0.7 MG/DL (0.55-1.30) Estimat Glomerular Filtration Rate > 60 mL/min (>60) Glucose Level 134 MG/DL (74-106) H Calcium Level 7.5 MG/DL (8.5-10.1) L Magnesium Level 1.7 MG/DL (1.8-2.4) L Iron Level 25 ug/dL (50-175) L Total Iron Binding Capacity 124 ug/dL (250-450) L Percent Iron Saturation 20 % (15-50) Unsaturated Iron Binding 99 ug/dL (112-346) L Total Bilirubin 0.2 MG/DL (0.2-1.0) Aspartate Amino Transf (AST/SGOT) 39 U/L (15-37) H Alanine Aminotransferase (ALT/SGPT) 32 U/L (12-78) Alkaline Phosphatase 162 U/L (46-116) H Total Protein 5.7 G/DL (6.4-8.2) L Albumin 1.5 G/DL (3.4-5.0) L Globulin 4.2 g/dL Albumin/Globulin Ratio 0.4 (1.0-2.7) L Current Medications Medications (Trade) Dose Ordered Sig/Brooke Route PRN Reason Start Time Stop Time Status Last Admin Dose Admin Dextrose (Dextrose 50%) 25 ml Q30M PRN IV Hypoglycemia 09/13/19 09:45 12/12/19 09:44 Dextrose (Dextrose 50%) 50 ml Q30M PRN IV Hypoglycemia 09/13/19 09:45 12/12/19 09:44 Dextrose/Sodium Chloride 1,000 ml @ 100 mls/hr Q10H IV 09/12/19 07:30 10/12/19 07:29 09/14/19 09:30 Insulin Aspart (NovoLOG) BEFORE MEALS AND HS SUBQ 09/13/19 11:30 12/12/19 11:29 Iron Sucrose 100 mg/Sodium Chloride 60 ml @ 240 mls/hr BEDTIME IVPB 09/14/19 21:00 09/18/19 21:14 Magnesium Sulfate 100 ml @ 100 mls/hr Q1H IVPB 09/14/19 13:00 09/14/19 14:59 Pantoprazole (Protonix) 40 mg DAILY IVP 09/12/19 09:00 10/12/19 08:59 09/14/19 10:06 Piperacillin Sod/ Tazobactam Sod 3.375 gm/Sodium Chloride 110 ml @ 27.5 mls/hr EVERY 8 HOURS IVPB 09/12/19 10:30 09/19/19 10:29 09/14/19 06:18 Potassium Chloride 100 ml @ 50 mls/hr ONCE ONCE IVPB 09/14/19 15:00 09/14/19 16:59 Vancomycin HCl ([facility] pharmacy to dose) 1 ea DAILY PRN MISC Per rx protocol 09/12/19 07:15 10/12/19 07:14 Vancomycin HCl 1 gm/Sodium Chloride 275 ml @ 183.708 mls/hr Q12HR@0600,1800 IVPB 09/14/19 06:00 09/19/19 05:59 09/14/19 06:17 Leticia Flanagan MD Sep 14, 2019 10:28
--- NOTE | 2019-09-14 11:45 | Diagnostic Imaging Report ---
Indication: Abdominal pain Technique: Supine view of the abdomen Comparison: 09/12/2019 Findings: Weighted nasogastric feeding tube is coiled in the gastric fundus. Bowel gas pattern is unremarkable. Overall bowel gas amount has decreased. 2 metallic objects projected in the pelvis, as previously. Increased density in the lower pelvis may indicate bladder distention. Impression: No acute abnormality. Overall decreased bowel gas since previous exam of 2 days earlier
[2019-09-14 12:00] VITALS: BP 148/67
[2019-09-14 16:00] VITALS: BP 140/75
[2019-09-14] MEDS ORDERED: D5NS 1000ml IV ONE (17:05)
[2019-09-14] MEDS ORDERED: Tubing IV Secondary IV ONE (17:05)
[2019-09-14] MEDS ORDERED: NS 275ml ONE (17:05)
--- NOTE | 2019-09-14 18:15 | Pulmonology Progress Note ---
Subjective ROS Limited/Unobtainable: Yes Allergies: Coded Allergies: No Known Allergies (Unverified , 09/12/19) All Systems: reviewed and negative except above Subjective overnight events reviewed care noted on oxygen no distress Objective Last 24 Hour Vital Signs Date Time Temp Pulse Resp B/P (MAP) Pulse Ox O2 Delivery O2 Flow Rate FiO2 09/14/19 16:00 96.9 111 20 140/75 (96) 98 09/14/19 16:00 110 09/14/19 12:00 96.4 110 20 148/67 (94) 99 09/14/19 11:33 108 09/14/19 08:00 97.4 112 20 148/75 (99) 99 09/14/19 07:51 122 09/14/19 04:00 97.3 107 22 123/67 (85) 97 09/14/19 04:00 Nasal Cannula 2.0 09/14/19 04:00 111 09/14/19 00:00 Nasal Cannula 2.0 09/14/19 00:00 97.3 101 22 123/67 (85) 97 09/14/19 00:00 109 09/13/19 20:00 Nasal Cannula 2.0 09/13/19 20:00 98.3 104 20 115/65 (82) 100 Intake and Output 09/13/19 09/14/19 18:59 06:59 Intake Total 100 ml Output Total 600 ml 700 ml Balance -500 ml -700 ml IV Total 100 ml Output Urine Total 600 ml 700 ml Objective deferred due to COVID+ Microbiology Date/Time Source Procedure Growth Status 09/12/19 04:00 Blood Blood Culture - Preliminary NO GROWTH AFTER 24 HOURS Resulted 09/12/19 03:45 Blood Blood Culture - Preliminary NO GROWTH AFTER 24 HOURS Resulted 09/12/19 16:00 Nasopharynx Coronavirus COVID-19 PCR ([facility]) - Final Complete 09/12/19 04:50 Nasopharynx SARS-CoV-2 RdRp Gene Assay - Final Complete 09/12/19 04:00 Nasal Nares MRSA Culture - Final NO METHICILLIN RESISTANT STAPH AUREUS... Complete 09/12/19 04:00 Rectum VRE Culture - Final NO VANCOMYCIN RESISTANT ENTEROCOCCUS ... Complete 09/12/19 04:00 Rectum - Final NO CARBAPENEM-RESISTANT ENTEROBACTERI... Complete Laboratory Tests 09/13/19 20:00: Vancomycin Level Trough 11.0 09/13/19 20:42: POC Whole Blood Glucose 107H 09/13/19 21:34: POC Whole Blood Glucose [Pending] 09/14/19 04:35: White Blood Count 6.9, Red Blood Count 2.33L, Hemoglobin 7.3L, Hematocrit 22.5L , Mean Corpuscular Volume 96, Mean Corpuscular Hemoglobin 31.2H, Mean Corpuscular Hemoglobin Concent 32.4, Red Cell Distribution Width 12.3, Platelet Count 618H, Mean Platelet Volume 5.2L, Neutrophils (%) (Auto) , Lymphocytes (%) (Auto) , Monocytes (%) (Auto) , Eosinophils (%) (Auto) , Basophils (%) (Auto) , Sodium Level 144, Potassium Level 2.8L, Chloride Level 111H, Carbon Dioxide Level 23, Anion Gap 11, Blood Urea Nitrogen 15, Creatinine 0.7, Estimat Glomerular Filtration Rate > 60, Glucose Level 134H, Calcium Level 7.5L, Magnesium Level 1.7L, Iron Level 25L, Total Iron Binding Capacity 124L, Percent Iron Saturation 20, Unsaturated Iron Binding 99L, Total Bilirubin 0.2, Aspartate Amino Transf (AST/SGOT) 39H, Alanine Aminotransferase (ALT/SGPT) 32, Alkaline Phosphatase 162H, Total Protein 5.7L, Albumin 1.5L, Globulin 4.2, Albumin/Globulin Ratio 0.4L 09/14/19 12:14: POC Whole Blood Glucose 142H 09/14/19 17:44: POC Whole Blood Glucose 161H Current Medications Medications (Trade) Dose Ordered Sig/Brooke Route PRN Reason Start Time Stop Time Status Last Admin Dose Admin Dextrose (Dextrose 50%) 25 ml Q30M PRN IV Hypoglycemia 09/13/19 09:45 12/12/19 09:44 Dextrose (Dextrose 50%) 50 ml Q30M PRN IV Hypoglycemia 09/13/19 09:45 12/12/19 09:44 Dextrose/Sodium Chloride 1,000 ml @ 100 mls/hr Q10H IV 09/12/19 07:30 10/12/19 07:29 09/14/19 09:30 Insulin Aspart (NovoLOG) BEFORE MEALS AND HS SUBQ 09/13/19 11:30 12/12/19 11:29 09/14/19 17:51 Iron Sucrose 100 mg/Sodium Chloride 60 ml @ 240 mls/hr BEDTIME IVPB 09/14/19 21:00 09/18/19 21:14 Pantoprazole (Protonix) 40 mg DAILY IVP 09/12/19 09:00 10/12/19 08:59 09/14/19 10:06 Piperacillin Sod/ Tazobactam Sod 3.375 gm/Sodium Chloride 110 ml @ 27.5 mls/hr EVERY 8 HOURS IVPB 09/12/19 10:30 09/19/19 10:29 09/14/19 17:35 Vancomycin HCl ([facility] pharmacy to dose) 1 ea DAILY PRN MISC Per rx protocol 09/12/19 07:15 10/12/19 07:14 Vancomycin HCl 1 gm/Sodium Chloride 275 ml @ 183.708 mls/hr Q12HR@0600,1800 IVPB 09/14/19 06:00 09/19/19 05:59 09/14/19 06:17 Assessment/Plan Assessment/Plan IMPRESSION: 1. Respiratory failure. 2. Acute hypoxemia. 3. Significant pneumonia, possible COVID. 4. Severe protein-calorie malnutrition. 5. Elevated alkaline phosphatase, 6. Significant anemia likely of chronic disease. 7. BPH. PLAN care noted imaging reviewed on oxygen respiratory care on isolation DVT prophylaxis as is will follow up for worsening congestion impression, plan, and exam edited and reviewed in detail care discussed with Keith Moore MD Sep 14, 2019 18:15
[2019-09-14 20:00] VITALS: BP 150/89
[2019-09-14] MEDS: Iron Sucrose 100 MG in NS 55 ML IVPB SCH (20:21)
[2019-09-15] VITALS: BP 138/74
--- NOTE | 2019-09-15 02:44 | Progress Note ---
DATE: 09/14/2019 CARDIOLOGY PROGRESS NOTE SUBJECTIVE: The patient has improved oxygenation. Blood pressure parameters remains stable range. Sinus tachycardia with paroxysmal of atrial fibrillation noted. OBJECTIVE: VITAL SIGNS: Blood pressure 123/67, pulse 109, respirations 22, and afebrile. LUNGS: Bilateral breath sounds with rhonchi and rales. CARDIAC: Irregularly irregular rhythm. Normal S1, S2. A 1/6 systolic murmur at apex. ABDOMEN: Softly distended. EXTREMITIES: With trace edema. LABORATORY AND DIAGNOSTIC DATA: X-ray of the abdomen today reveals decreased bowel gas pattern. White count 6.9, hemoglobin 7.3. BUN 15, creatinine 0.7, potassium 2.8. Albumin 1.5. IMPRESSION: 1. Healthcare-associated pneumonia. 2. Paralytic ileus, improved. 3. Hypertensive heart disease. 4. Sepsis. 5. Hypoxia, improved. 6. Hypovolemia and dehydration, corrected. 7. Tachyarrhythmias. 8. Hypokalemia. 9. Worsening anemia with no signs of active bleeding. PLAN: 1. Antimicrobials. 2. Oxygen as needed. 3. Adjust IV fluids. 4. Packed red blood cell transfusion. 5. Replace potassium. 6. Recheck electrolytes including magnesium. 7. Surgical clearance for nutrition. Avila Ramos M.D. DR: KEITH JOB#: [id number] CC:
[2019-09-15 04:00] VITALS: BP 132/76
[2019-09-15] MEDS: D5NS 1,000 ML IV SCH (05:00)
[2019-09-15] MEDS: Vancomycin 1 GM in NS 275 ML IVPB SCH ×2 (05:00→17:22)
[2019-09-15] MEDS: Piperacillin/Tazobactam 3.375 GM in NS 110 ML IVPB SCH ×3 (05:00→21:19)
[2019-09-15 05:28] LABS: BASOPHILS % (AUTO) 2.6 % (0.0-2.0); EOSINOPHILS % (AUTO) 1.9 % (0.0-3.0); HEMATOCRIT 30.4 % (42.0-52.0); HEMOGLOBIN 9.9 G/DL (14.2-18.0); MEAN CORPUSCULAR VOLUME 94 FL (80-99); MONOCYTES % (AUTO) 10.4 % (1.0-10.0); NEUTROPHILS % (AUTO) 78.2 % (45.0-75.0); PLATELET COUNT 543 K/UL (150-450); RED BLOOD COUNT 3.23 M/UL (4.70-6.10); RED CELL DISTRIBUTION WIDTH 12.7 % (11.6-14.8); WHITE BLOOD COUNT 7.4 K/UL (4.8-10.8)
[2019-09-15] MEDS: NovoLOG Insulin Flexpen SUBQ SCH ×4 (05:30→20:00)
[2019-09-15 06:03] LABS: ALANINE AMINOTRANSFERASE 33 U/L (12-78); ALBUMIN 1.6 G/DL (3.4-5.0); ALBUMIN/GLOBULIN RATIO 0.4 (1.0-2.7); ALKALINE PHOSPHATASE 166 U/L (46-116); ANION GAP 10 mmol/L (5-15); ASPARTATE AMINO TRANSFERASE 33 U/L (15-37); BILIRUBIN,TOTAL 0.7 MG/DL (0.2-1.0); BLOOD UREA NITROGEN 11 mg/dL (7-18); CALCIUM 7.5 MG/DL (8.5-10.1); CARBON DIOXIDE 22 MMOL/L (21-32); CHLORIDE 106 MMOL/L (98-107); CREATININE 0.6 MG/DL (0.55-1.30); POTASSIUM 3.3 MMOL/L (3.5-5.1); SODIUM 138 MMOL/L (136-145)
[2019-09-15 08:00] VITALS: BP 128/75
--- NOTE | 2019-09-15 08:40 | Pulmonology Progress Note ---
Subjective ROS Limited/Unobtainable: Yes Allergies: Coded Allergies: No Known Allergies (Unverified , 09/12/19) All Systems: reviewed and negative except above Subjective overnight events reviewed care noted on oxygen no distress Objective Last 24 Hour Vital Signs Date Time Temp Pulse Resp B/P (MAP) Pulse Ox O2 Delivery O2 Flow Rate FiO2 09/15/19 08:00 Nasal Cannula 2.0 09/15/19 08:00 97.9 95 21 128/75 (92) 99 09/15/19 08:00 91 09/15/19 04:00 97.9 93 19 132/76 (94) 99 09/15/19 04:00 Nasal Cannula 2.0 09/15/19 03:27 99 09/15/19 00:00 97.3 103 20 138/74 (95) 99 09/15/19 00:00 Nasal Cannula 2.0 09/14/19 23:35 99 09/14/19 20:00 110 09/14/19 20:00 Nasal Cannula 2.0 09/14/19 20:00 Nasal Cannula 2.0 09/14/19 20:00 97.4 110 20 150/89 (109) 99 09/14/19 16:00 96.9 111 20 140/75 (96) 98 09/14/19 16:00 Nasal Cannula 2.0 09/14/19 16:00 110 09/14/19 12:00 96.4 110 20 148/67 (94) 99 09/14/19 12:00 Nasal Cannula 2.0 09/14/19 11:33 108 Intake and Output 09/14/19 09/15/19 19:00 07:00 Intake Total 1450 ml 1692.416 ml Output Total 700 ml 1975 ml Balance 750 ml -282.584 ml IV Total 1200 ml 1692.416 ml Blood Product 250 ml Output Urine Total 700 ml 1975 ml Objective deferred due to COVID+ Microbiology Date/Time Source Procedure Growth Status 09/12/19 16:00 Nasopharynx Coronavirus COVID-19 PCR ([facility]) - Final Complete Laboratory Tests 09/14/19 12:14: POC Whole Blood Glucose 142H 09/14/19 17:44: POC Whole Blood Glucose 161H 09/15/19 03:40: White Blood Count 7.4, Red Blood Count 3.23L, Hemoglobin 9.9#L, Hematocrit 30.4# L, Mean Corpuscular Volume 94, Mean Corpuscular Hemoglobin 30.8, Mean Corpuscular Hemoglobin Concent 32.7, Red Cell Distribution Width 12.7, Platelet Count 543H, Mean Platelet Volume 5.1L, Neutrophils (%) (Auto) 78.2H, Lymphocytes (%) (Auto) 7.0L, Monocytes (%) (Auto) 10.4H, Eosinophils (%) (Auto) 1.9, Basophils (%) (Auto) 2.6H, Sodium Level 138, Potassium Level 3.3L, Chloride Level 106, Carbon Dioxide Level 22, Anion Gap 10, Blood Urea Nitrogen 11, Creatinine 0.6, Estimat Glomerular Filtration Rate > 60, Glucose Level 142H , Calcium Level 7.5L, Total Bilirubin 0.7, Aspartate Amino Transf (AST/SGOT) 33 , Alanine Aminotransferase (ALT/SGPT) 33, Alkaline Phosphatase 166H, Pro-B-Type Natriuretic Peptide 1580H, Total Protein 5.8L, Albumin 1.6L, Globulin 4.2, Albumin/Globulin Ratio 0.4L 09/15/19 04:49: POC Whole Blood Glucose [Pending] Current Medications Medications (Trade) Dose Ordered Sig/Brooke Route PRN Reason Start Time Stop Time Status Last Admin Dose Admin Dextrose (Dextrose 50%) 25 ml Q30M PRN IV Hypoglycemia 09/13/19 09:45 12/12/19 09:44 Dextrose (Dextrose 50%) 50 ml Q30M PRN IV Hypoglycemia 09/13/19 09:45 12/12/19 09:44 Dextrose/Sodium Chloride 1,000 ml @ 100 mls/hr Q10H IV 09/12/19 07:30 10/12/19 07:29 09/15/19 05:00 Insulin Aspart (NovoLOG) BEFORE MEALS AND HS SUBQ 09/13/19 11:30 12/12/19 11:29 09/14/19 17:51 Iron Sucrose 100 mg/Sodium Chloride 60 ml @ 240 mls/hr BEDTIME IVPB 09/14/19 21:00 09/18/19 21:14 09/14/19 20:21 Pantoprazole (Protonix) 40 mg DAILY IVP 09/12/19 09:00 10/12/19 08:59 09/14/19 10:06 Piperacillin Sod/ Tazobactam Sod 3.375 gm/Sodium Chloride 110 ml @ 27.5 mls/hr EVERY 8 HOURS IVPB 09/12/19 10:30 09/19/19 10:29 09/15/19 05:00 Vancomycin HCl ([facility] pharmacy to dose) 1 ea DAILY PRN MISC Per rx protocol 09/12/19 07:15 10/12/19 07:14 Vancomycin HCl 1 gm/Sodium Chloride 275 ml @ 183.708 mls/hr Q12HR@0600,1800 IVPB 09/14/19 06:00 09/19/19 05:59 09/15/19 05:00 Assessment/Plan Assessment/Plan IMPRESSION: 1. Respiratory failure. 2. Acute hypoxemia. 3. Significant pneumonia, possible COVID. 4. Severe protein-calorie malnutrition. 5. Elevated alkaline phosphatase, 6. Significant anemia likely of chronic disease. 7. BPH. PLAN care noted imaging reviewed on oxygen respiratory care on isolation DVT prophylaxis as is will follow up for worsening congestion impression, plan, and exam edited and reviewed in detail care discussed with Keith Moore MD Sep 15, 2019 08:40
--- NOTE | 2019-09-15 08:56 | General Progress Note ---
Assessment/Plan Problem List: (1) Bowel perforation ICD Codes: K63.1 - Perforation of intestine (nontraumatic) SNOMED: 73987679 (2) Anemia ICD Codes: D64.9 - Anemia, unspecified SNOMED: 588705004, 225356947 Qualifiers: Qualified Codes: D64.9 - Anemia, unspecified (3) Sepsis ICD Codes: A41.9 - Sepsis, unspecified organism SNOMED: 33323478, 935487228 Qualifiers: Qualified Codes: A41.9 - Sepsis, unspecified organism; R65.20 - Severe sepsis without septic shock; J96.01 - Acute respiratory failure with hypoxia (4) Tachycardia ICD Codes: R00.0 - Tachycardia, unspecified SNOMED: 8259587 (5) Fever ICD Codes: R50.9 - Fever, unspecified SNOMED: 618555966 (6) HCAP (healthcare-associated pneumonia) ICD Codes: J18.9 - Pneumonia, unspecified organism SNOMED: 809259638, 457967653 (7) Acute respiratory failure with hypoxia ICD Codes: J96.01 - Acute respiratory failure with hypoxia SNOMED: 81745833, 329619115 Status: stable Assessment/Plan: stable/improving cont current rx wean o2 resp rx suctioning as needed IVF monitor h/h check iron panel and stool ob transfuse as needed replace k PPI feeds when cleared by surgery No chest compressions. Intubation OK per DTR Subjective ROS Limited/Unobtainable: No Constitutional: Reports: malaise, weakness HEENT: Reports: no symptoms Cardiovascular: Reports: no symptoms Respiratory: Reports: cough, SOB at rest, sputum Gastrointestinal/Abdominal: Reports: no symptoms Genitourinary: Reports: no symptoms Neurologic/Psychiatric: Reports: pre-existing deficit Endocrine: Reports: no symptoms Hematologic/Lymphatic: Reports: anemia Allergies: Coded Allergies: No Known Allergies (Unverified , 09/12/19) All Systems: reviewed and negative except above Subjective no events. s/p transfusion yesterday. no reports off bleeding. no fever or chills. still with ngt. feeds on hold. low k noted. Objective Last 24 Hour Vital Signs Date Time Temp Pulse Resp B/P (MAP) Pulse Ox O2 Delivery O2 Flow Rate FiO2 09/15/19 08:00 Nasal Cannula 2.0 09/15/19 08:00 97.9 95 21 128/75 (92) 99 09/15/19 08:00 91 09/15/19 04:00 97.9 93 19 132/76 (94) 99 09/15/19 04:00 Nasal Cannula 2.0 09/15/19 03:27 99 09/15/19 00:00 97.3 103 20 138/74 (95) 99 09/15/19 00:00 Nasal Cannula 2.0 09/14/19 23:35 99 09/14/19 20:00 110 09/14/19 20:00 Nasal Cannula 2.0 09/14/19 20:00 Nasal Cannula 2.0 09/14/19 20:00 97.4 110 20 150/89 (109) 99 09/14/19 16:00 96.9 111 20 140/75 (96) 98 09/14/19 16:00 Nasal Cannula 2.0 09/14/19 16:00 110 09/14/19 12:00 96.4 110 20 148/67 (94) 99 09/14/19 12:00 Nasal Cannula 2.0 09/14/19 11:33 108 Intake and Output 09/14/19 09/15/19 19:00 07:00 Intake Total 1450 ml 1692.416 ml Output Total 700 ml 1975 ml Balance 750 ml -282.584 ml IV Total 1200 ml 1692.416 ml Blood Product 250 ml Output Urine Total 700 ml 1975 ml Laboratory Tests 09/14/19 12:14: POC Whole Blood Glucose 142H 09/14/19 17:44: POC Whole Blood Glucose 161H 09/15/19 03:40: White Blood Count 7.4, Red Blood Count 3.23L, Hemoglobin 9.9#L, Hematocrit 30.4# L, Mean Corpuscular Volume 94, Mean Corpuscular Hemoglobin 30.8, Mean Corpuscular Hemoglobin Concent 32.7, Red Cell Distribution Width 12.7, Platelet Count 543H, Mean Platelet Volume 5.1L, Neutrophils (%) (Auto) 78.2H, Lymphocytes (%) (Auto) 7.0L, Monocytes (%) (Auto) 10.4H, Eosinophils (%) (Auto) 1.9, Basophils (%) (Auto) 2.6H, Sodium Level 138, Potassium Level 3.3L, Chloride Level 106, Carbon Dioxide Level 22, Anion Gap 10, Blood Urea Nitrogen 11, Creatinine 0.6, Estimat Glomerular Filtration Rate > 60, Glucose Level 142H , Calcium Level 7.5L, Total Bilirubin 0.7, Aspartate Amino Transf (AST/SGOT) 33 , Alanine Aminotransferase (ALT/SGPT) 33, Alkaline Phosphatase 166H, Pro-B-Type Natriuretic Peptide 1580H, Total Protein 5.8L, Albumin 1.6L, Globulin 4.2, Albumin/Globulin Ratio 0.4L 09/15/19 04:49: POC Whole Blood Glucose [Pending] 09/15/19 08:26: Arterial Blood pH 7.476H, Arterial Blood Partial Pressure CO2 28.4L, Arterial Blood Partial Pressure O2 72.7L, Arterial Blood HCO3 20.5L, Arterial Blood Oxygen Saturation 94.4L, Arterial Blood Base Excess -2.3L, Sameer Test Positive Height (Feet): 6 Weight (Pounds): 179 Objective General Appearance: WD/WN, lethargic, confused, cachetic EENT: PERRL/EOMI, normal ENT inspection Neck: non-tender, normal alignment Cardiovascular: normal rate, regular rhythm Respiratory/Chest: no respiratory distress, no accessory muscle use, rhonchi - bilaterally Abdomen: normal bowel sounds, non tender, soft, no organomegaly, no mass Edema: no edema noted Arm (L), no edema noted Arm (R), no edema noted Leg (L), no edema noted Leg (R), no edema noted Pedal (L), no edema noted Pedal (R), no edema noted Generalized Neurologic: disoriented, aphasia Skin: normal pigmentation Lymphatic: normal anterior cervical (L), normal anterior cervical (R) Aaron Meza MD Sep 15, 2019 08:55
[2019-09-15] MEDS: Pantoprazole Inj IVP SCH (09:36)
--- NOTE | 2019-09-15 09:37 | Infectious Diseases Prog Note ---
Assessment/Plan Assessment/Plan A 1. pneumonia COVID 19 rapid test negative x 2 2. diabetes mellitus 3. hypertension 4. Anemia 5. Hypoxic respiratory failure P 1. continue iv vancomycin, Zosyn 2. will follow up cultures Subjective ROS Limited/Unobtainable: Yes Constitutional: Denies: fever Allergies: Coded Allergies: No Known Allergies (Unverified , 09/12/19) Objective Last 24 Hour Vital Signs Date Time Temp Pulse Resp B/P (MAP) Pulse Ox O2 Delivery O2 Flow Rate FiO2 09/15/19 08:00 Nasal Cannula 2.0 09/15/19 08:00 97.9 95 21 128/75 (92) 99 09/15/19 08:00 91 09/15/19 07:10 99 Nasal Cannula 2.0 28 09/15/19 04:00 97.9 93 19 132/76 (94) 99 09/15/19 04:00 Nasal Cannula 2.0 09/15/19 03:27 99 09/15/19 00:00 97.3 103 20 138/74 (95) 99 09/15/19 00:00 Nasal Cannula 2.0 09/14/19 23:35 99 09/14/19 20:00 110 09/14/19 20:00 Nasal Cannula 2.0 09/14/19 20:00 Nasal Cannula 2.0 09/14/19 20:00 97.4 110 20 150/89 (109) 99 09/14/19 16:00 96.9 111 20 140/75 (96) 98 09/14/19 16:00 Nasal Cannula 2.0 09/14/19 16:00 110 09/14/19 12:00 96.4 110 20 148/67 (94) 99 09/14/19 12:00 Nasal Cannula 2.0 09/14/19 11:33 108 Height (Feet): 6 Weight (Pounds): 179 General Appearance: no acute distress HEENT: mucous membranes moist Respiratory/Chest: lungs clear, other - oxygen by nasal cannula Cardiovascular: normal rate, other - left arm PICC line Abdomen: soft, non tender, other - NG tube Genitourinary: other Extremities: no edema Neurologic/Psychiatric: alert, responsive Musculoskeletal: atrophy Microbiology Date/Time Source Procedure Growth Status 09/12/19 16:00 Nasopharynx Coronavirus COVID-19 PCR ([facility]) - Final Complete Laboratory Tests Test 09/14/19 12:14 09/14/19 17:44 09/14/19 20:18 09/15/19 03:40 POC Whole Blood Glucose 142 MG/DL (74-106) H 161 MG/DL (74-106) H Pending White Blood Count 7.4 K/UL (4.8-10.8) Red Blood Count 3.23 M/UL (4.70-6.10) L Hemoglobin 9.9 G/DL (14.2-18.0) #L Hematocrit 30.4 % (42.0-52.0) #L Mean Corpuscular Volume 94 FL (80-99) Mean Corpuscular Hemoglobin 30.8 PG (27.0-31.0) Mean Corpuscular Hemoglobin Concent 32.7 G/DL (32.0-36.0) Red Cell Distribution Width 12.7 % (11.6-14.8) Platelet Count 543 K/UL (150-450) H Mean Platelet Volume 5.1 FL (6.5-10.1) L Neutrophils (%) (Auto) 78.2 % (45.0-75.0) H Lymphocytes (%) (Auto) 7.0 % (20.0-45.0) L Monocytes (%) (Auto) 10.4 % (1.0-10.0) H Eosinophils (%) (Auto) 1.9 % (0.0-3.0) Basophils (%) (Auto) 2.6 % (0.0-2.0) H Sodium Level 138 MMOL/L (136-145) Potassium Level 3.3 MMOL/L (3.5-5.1) L Chloride Level 106 MMOL/L (98-107) Carbon Dioxide Level 22 MMOL/L (21-32) Anion Gap 10 mmol/L (5-15) Blood Urea Nitrogen 11 mg/dL (7-18) Creatinine 0.6 MG/DL (0.55-1.30) Estimat Glomerular Filtration Rate > 60 mL/min (>60) Glucose Level 142 MG/DL (74-106) H Calcium Level 7.5 MG/DL (8.5-10.1) L Total Bilirubin 0.7 MG/DL (0.2-1.0) Aspartate Amino Transf (AST/SGOT) 33 U/L (15-37) Alanine Aminotransferase (ALT/SGPT) 33 U/L (12-78) Alkaline Phosphatase 166 U/L (46-116) H Pro-B-Type Natriuretic Peptide 1580 pg/mL (0-125) H Total Protein 5.8 G/DL (6.4-8.2) L Albumin 1.6 G/DL (3.4-5.0) L Globulin 4.2 g/dL Albumin/Globulin Ratio 0.4 (1.0-2.7) L Test 09/15/19 04:49 09/15/19 08:26 POC Whole Blood Glucose Pending Arterial Blood pH 7.476 (7.350-7.450) Arterial Blood Partial Pressure CO2 28.4 mmHg (35.0-45.0) L Arterial Blood Partial Pressure O2 72.7 mmHg (75.0-100.0) L Arterial Blood HCO3 20.5 mmol/L (22.0-26.0) L Arterial Blood Oxygen Saturation 94.4 % (95-100) L Arterial Blood Base Excess -2.3 (-2-2) L Sameer Test Positive Current Medications Medications (Trade) Dose Ordered Sig/Brooke Route PRN Reason Start Time Stop Time Status Last Admin Dose Admin Dextrose (Dextrose 50%) 25 ml Q30M PRN IV Hypoglycemia 09/13/19 09:45 12/12/19 09:44 Dextrose (Dextrose 50%) 50 ml Q30M PRN IV Hypoglycemia 09/13/19 09:45 12/12/19 09:44 Dextrose/Sodium Chloride 1,000 ml @ 100 mls/hr Q10H IV 09/12/19 07:30 10/12/19 07:29 09/15/19 05:00 Insulin Aspart (NovoLOG) BEFORE MEALS AND HS SUBQ 09/13/19 11:30 12/12/19 11:29 09/14/19 17:51 Iron Sucrose 100 mg/Sodium Chloride 60 ml @ 240 mls/hr BEDTIME IVPB 09/14/19 21:00 09/18/19 21:14 09/14/19 20:21 Pantoprazole (Protonix) 40 mg DAILY IVP 09/12/19 09:00 10/12/19 08:59 09/14/19 10:06 Piperacillin Sod/ Tazobactam Sod 3.375 gm/Sodium Chloride 110 ml @ 27.5 mls/hr EVERY 8 HOURS IVPB 09/12/19 10:30 09/19/19 10:29 09/15/19 05:00 Potassium Chloride 100 ml @ 100 mls/hr Q1HR IVPB 09/15/19 10:00 09/15/19 12:59 Vancomycin HCl (Vanco pharmacy to dose) 1 ea DAILY PRN MISC Per rx protocol 09/12/19 07:15 10/12/19 07:14 Vancomycin HCl 1 gm/Sodium Chloride 275 ml @ 183.708 mls/hr Q12HR@0600,1800 IVPB 09/14/19 06:00 09/19/19 05:59 09/15/19 05:00 Reggie Wahl MD Sep 15, 2019 09:37
[2019-09-15 11:58] VITALS: BP 134/74
--- NOTE | 2019-09-15 13:58 | Surgery Progress Note ---
Surgery Progress Note Subjective Additional Comments KUB improved. Exam improved. No acute events. Labs reviewed. Doing well overall slowly improving. Objective Last 24 Hour Vital Signs Date Time Temp Pulse Resp B/P (MAP) Pulse Ox O2 Delivery O2 Flow Rate FiO2 09/15/19 12:00 Nasal Cannula 2.0 09/15/19 12:00 89 09/15/19 11:58 97.9 98 20 134/74 (94) 100 09/15/19 08:00 Nasal Cannula 2.0 09/15/19 08:00 97.9 95 21 128/75 (92) 99 09/15/19 08:00 91 09/15/19 07:10 99 Nasal Cannula 2.0 28 09/15/19 04:00 97.9 93 19 132/76 (94) 99 09/15/19 04:00 Nasal Cannula 2.0 09/15/19 03:27 99 09/15/19 00:00 97.3 103 20 138/74 (95) 99 09/15/19 00:00 Nasal Cannula 2.0 09/14/19 23:35 99 09/14/19 20:00 110 09/14/19 20:00 Nasal Cannula 2.0 09/14/19 20:00 Nasal Cannula 2.0 09/14/19 20:00 97.4 110 20 150/89 (109) 99 09/14/19 16:00 96.9 111 20 140/75 (96) 98 09/14/19 16:00 Nasal Cannula 2.0 09/14/19 16:00 110 I&O Intake and Output 09/14/19 09/15/19 19:00 07:00 Intake Total 1450 ml 1692.416 ml Output Total 700 ml 1975 ml Balance 750 ml -282.584 ml IV Total 1200 ml 1692.416 ml Blood Product 250 ml Output Urine Total 700 ml 1975 ml Dressing: dry Wound: clean Cardiovascular: RSR Respiratory: clear, decreased breath sounds Abdomen: soft, non-tender, present bowel sounds Extremities: no tenderness, no cyanosis Laboratory Tests Test 09/14/19 17:44 09/14/19 20:18 09/15/19 03:40 09/15/19 04:49 POC Whole Blood Glucose 161 MG/DL (74-106) H Pending Pending White Blood Count 7.4 K/UL (4.8-10.8) Red Blood Count 3.23 M/UL (4.70-6.10) L Hemoglobin 9.9 G/DL (14.2-18.0) #L Hematocrit 30.4 % (42.0-52.0) #L Mean Corpuscular Volume 94 FL (80-99) Mean Corpuscular Hemoglobin 30.8 PG (27.0-31.0) Mean Corpuscular Hemoglobin Concent 32.7 G/DL (32.0-36.0) Red Cell Distribution Width 12.7 % (11.6-14.8) Platelet Count 543 K/UL (150-450) H Mean Platelet Volume 5.1 FL (6.5-10.1) L Neutrophils (%) (Auto) 78.2 % (45.0-75.0) H Lymphocytes (%) (Auto) 7.0 % (20.0-45.0) L Monocytes (%) (Auto) 10.4 % (1.0-10.0) H Eosinophils (%) (Auto) 1.9 % (0.0-3.0) Basophils (%) (Auto) 2.6 % (0.0-2.0) H Sodium Level 138 MMOL/L (136-145) Potassium Level 3.3 MMOL/L (3.5-5.1) L Chloride Level 106 MMOL/L (98-107) Carbon Dioxide Level 22 MMOL/L (21-32) Anion Gap 10 mmol/L (5-15) Blood Urea Nitrogen 11 mg/dL (7-18) Creatinine 0.6 MG/DL (0.55-1.30) Estimat Glomerular Filtration Rate > 60 mL/min (>60) Glucose Level 142 MG/DL (74-106) H Calcium Level 7.5 MG/DL (8.5-10.1) L Total Bilirubin 0.7 MG/DL (0.2-1.0) Aspartate Amino Transf (AST/SGOT) 33 U/L (15-37) Alanine Aminotransferase (ALT/SGPT) 33 U/L (12-78) Alkaline Phosphatase 166 U/L (46-116) H Pro-B-Type Natriuretic Peptide 1580 pg/mL (0-125) H Total Protein 5.8 G/DL (6.4-8.2) L Albumin 1.6 G/DL (3.4-5.0) L Globulin 4.2 g/dL Albumin/Globulin Ratio 0.4 (1.0-2.7) L Test 09/15/19 08:26 09/15/19 11:36 Arterial Blood pH 7.476 (7.350-7.450) Arterial Blood Partial Pressure CO2 28.4 mmHg (35.0-45.0) L Arterial Blood Partial Pressure O2 72.7 mmHg (75.0-100.0) L Arterial Blood HCO3 20.5 mmol/L (22.0-26.0) L Arterial Blood Oxygen Saturation 94.4 % (95-100) L Arterial Blood Base Excess -2.3 (-2-2) L Sameer Test Positive POC Whole Blood Glucose 131 MG/DL (74-106) H Plan Problems: (1) Anemia (2) Sepsis Assessment & Plan: febrile, tachycardic, abnormal labs, sob, respiratory decline covid neg in ED recent colonoscopy with perf per report treated conservatively abd exam limited given medical condition but seemingly benign non distended, no pain upon exam CXR noted. labs reviewed KUB pending does not seem to be having acute abdominal process but concerning and ddx given recent history no acute surgical intervention planned will follow with serial exams and recs thank you IVAN noted.. . likely ileus repeat in AM hold feeds for now IV fluids discussed with team IVAN reviewed improved ileus improved Tube feeds resumed will monitor residuals and tolerance (3) Acute respiratory failure with hypoxia (4) HCAP (healthcare-associated pneumonia) (5) Fever (6) Shortness of breath (7) Tachycardia (8) Suspected COVID-19 virus infection Arnaldo Pinon Sep 15, 2019 13:58
[2019-09-15] MEDS ORDERED: D5NS 1000ml IV ONE (14:42)
[2019-09-15] MEDS ORDERED: NS 275ml ONE (14:42)
[2019-09-15 16:00] VITALS: BP 139/82
[2019-09-15 19:58] VITALS: BP 145/86
[2019-09-15] MEDS: Iron Sucrose 100 MG in NS 55 ML IVPB SCH (20:01)
[2019-09-16] VITALS: BP 146/88
[2019-09-16 04:00] VITALS: BP 143/80
--- NOTE | 2019-09-16 04:29 | Progress Note ---
DATE: 09/15/2019 CARDIOLOGY PROGRESS NOTE SUBJECTIVE: Patient remains NPO on G-tube decompression. He is status post packed red blood cell transfusion yesterday. He continues to require respiratory hygiene and suctioning. Monitored rhythm, atrial fibrillation with better ventricular rate and occasional ventricular ectopics. PHYSICAL EXAMINATION: VITAL SIGNS: Blood pressure 128/75, heart rate 95, respirations 21, afebrile. LUNGS: Coarse breath sounds. Rhonchi. CARDIAC: Irregularly irregular rhythm. Normal S1, S2. ABDOMEN: Soft and less distended. EXTREMITIES: No edema. LABORATORY DATA: White count 7.4, hemoglobin 9.9. Glucose 142, sodium 138, potassium 3.3, bicarb 22, BUN 11, creatinine 0.6. Albumin 1.6. Pro natriuretic peptide 1580. ABG 7.47, 28, 94% saturation of oxygen. IMPRESSION: 1. Healthcare-acquired pneumonia. 2. Paralytic ileus, improving. 3. Hypertensive heart disease, stable. 4. Sepsis with recovered shock. 5. Hypoxia, improving. 6. Corrected hypovolemia and dehydration. 7. Atrial fibrillation paroxysmal. 8. Anemia, status post transfusion. 9. Hypokalemia. 10. Recent bowel perforation. PLAN: 1. Hold feedings per surgeon. 2. Continue IV fluids. 3. Replace potassium. 4. Recheck magnesium. 5. DVT prophylaxis. 6. Transfuse for hemoglobin less than 8 g. 7. May need TPN if unable to start feeding soon. Avila Ramos M.D. DR: MACEY JOB#: [id number] CC:
[2019-09-16 05:12] LABS: BASOPHILS % (AUTO) 0.8 % (0.0-2.0); EOSINOPHILS % (AUTO) 2.2 % (0.0-3.0); HEMATOCRIT 33.9 % (42.0-52.0); HEMOGLOBIN 11.4 G/DL (14.2-18.0); LYMPHOCYTES % (AUTO) 10.8 % (20.0-45.0); MEAN CORPUSCULAR VOLUME 93 FL (80-99); MONOCYTES % (AUTO) 7.8 % (1.0-10.0); NEUTROPHILS % (AUTO) 78.3 % (45.0-75.0); PLATELET COUNT 578 K/UL (150-450); RED BLOOD COUNT 3.65 M/UL (4.70-6.10); RED CELL DISTRIBUTION WIDTH 12.3 % (11.6-14.8); WHITE BLOOD COUNT 9.2 K/UL (4.8-10.8)
[2019-09-16 05:15] LABS: ALANINE AMINOTRANSFERASE 34 U/L (12-78); ALBUMIN 1.9 G/DL (3.4-5.0); ALBUMIN/GLOBULIN RATIO 0.4 (1.0-2.7); ALKALINE PHOSPHATASE 184 U/L (46-116); ANION GAP 11 mmol/L (5-15); ASPARTATE AMINO TRANSFERASE 36 U/L (15-37); BILIRUBIN,TOTAL 0.7 MG/DL (0.2-1.0); BLOOD UREA NITROGEN 5 mg/dL (7-18); CARBON DIOXIDE 22 MMOL/L (21-32); CHLORIDE 100 MMOL/L (98-107); CREATININE 0.7 MG/DL (0.55-1.30); POTASSIUM 3.5 MMOL/L (3.5-5.1); SODIUM 133 MMOL/L (136-145)
[2019-09-16] MEDS: NovoLOG Insulin Flexpen SUBQ SCH ×4 (05:28→20:40)
[2019-09-16] MEDS: Piperacillin/Tazobactam 3.375 GM in NS 110 ML IVPB SCH ×3 (05:31→22:10)
[2019-09-16] MEDS ORDERED: Vancomycin 1 GM in NS 275 ML IVPB SCH (06:00)
--- NOTE | 2019-09-16 07:46 | Pulmonology Progress Note ---
Subjective ROS Limited/Unobtainable: Yes Constitutional: Denies: fever Allergies: Coded Allergies: No Known Allergies (Unverified , 09/12/19) All Systems: reviewed and negative except above Subjective overnight events reviewed care noted on oxygen and stable no distress at present Objective Last 24 Hour Vital Signs Date Time Temp Pulse Resp B/P (MAP) Pulse Ox O2 Delivery O2 Flow Rate FiO2 09/16/19 05:32 100 Nasal Cannula 2.0 28 09/16/19 04:00 113 09/16/19 04:00 99.0 112 20 143/80 (101) 99 09/16/19 00:00 97.5 110 20 146/88 (107) 100 09/16/19 00:00 Nasal Cannula 2.0 09/15/19 23:31 108 09/15/19 20:00 Nasal Cannula 2.0 09/15/19 20:00 96 09/15/19 20:00 Nasal Cannula 2.0 09/15/19 19:58 97.3 105 21 145/86 (105) 100 09/15/19 16:00 Nasal Cannula 2.0 09/15/19 16:00 90 09/15/19 16:00 97.9 97 21 139/82 (101) 99 09/15/19 12:00 Nasal Cannula 2.0 09/15/19 12:00 89 09/15/19 11:58 97.9 98 20 134/74 (94) 100 09/15/19 08:00 Nasal Cannula 2.0 09/15/19 08:00 97.9 95 21 128/75 (92) 99 09/15/19 08:00 91 Intake and Output 09/15/19 09/16/19 19:00 07:00 Intake Total 75 ml 620.0 ml Output Total 1500 ml 1600 ml Balance -1425 ml -980.0 ml IV Total 75 ml 620.0 ml Output Urine Total 1500 ml 1600 ml # Bowel Movements 1 Objective WDWN NAD clear breath sounds bilaterally without rhonchi or wheeze [id number] without MRG NABS nontender no HSM no CCE nonfocal Laboratory Tests 09/15/19 08:26: Arterial Blood pH 7.476H, Arterial Blood Partial Pressure CO2 28.4L, Arterial Blood Partial Pressure O2 72.7L, Arterial Blood HCO3 20.5L, Arterial Blood Oxygen Saturation 94.4L, Arterial Blood Base Excess -2.3L, Sameer Test Positive 09/15/19 11:36: POC Whole Blood Glucose 131H 09/15/19 16:55: Vancomycin Level Trough 16.1H 09/15/19 17:09: POC Whole Blood Glucose 124H 09/15/19 22:00: Stool Occult Blood [Pending] 09/16/19 04:37: White Blood Count 9.2, Red Blood Count 3.65L, Hemoglobin 11.4L, Hematocrit 33.9L , Mean Corpuscular Volume 93, Mean Corpuscular Hemoglobin 31.4H, Mean Corpuscular Hemoglobin Concent 33.7, Red Cell Distribution Width 12.3, Platelet Count 578H, Mean Platelet Volume 4.9L, Neutrophils (%) (Auto) 78.3H, Lymphocytes (%) (Auto) 10.8L, Monocytes (%) (Auto) 7.8, Eosinophils (%) (Auto) 2.2, Basophils (%) (Auto) 0.8, Sodium Level 133L, Potassium Level 3.5, Chloride Level 100, Carbon Dioxide Level 22, Anion Gap 11, Blood Urea Nitrogen 5L, Creatinine 0.7, Estimat Glomerular Filtration Rate > 60, Glucose Level 111H, Calcium Level 8.0L, Magnesium Level 1.6L, Total Bilirubin 0.7, Aspartate Amino Transf (AST/SGOT) 36, Alanine Aminotransferase (ALT/SGPT) 34, Alkaline Phosphatase 184H, Pro-B-Type Natriuretic Peptide 1761H, Total Protein 6.8, Albumin 1.9L, Globulin 4.9, Albumin/Globulin Ratio 0.4L Current Medications Medications (Trade) Dose Ordered Sig/Brooke Route PRN Reason Start Time Stop Time Status Last Admin Dose Admin Dextrose (Dextrose 50%) 25 ml Q30M PRN IV Hypoglycemia 09/16/19 03:45 12/12/19 09:44 Dextrose (Dextrose 50%) 50 ml Q30M PRN IV Hypoglycemia 09/16/19 03:45 12/12/19 09:44 Dextrose/ Electrolytes 1,000 ml @ 75 mls/hr [id number] IV 09/16/19 04:00 10/15/19 03:59 Insulin Aspart (NovoLOG) BEFORE MEALS AND HS SUBQ 09/16/19 06:30 12/12/19 11:29 Iron Sucrose 100 mg/Sodium Chloride 60 ml @ 240 mls/hr BEDTIME IV 09/16/19 21:00 09/18/19 21:14 Pantoprazole (Protonix) 40 mg DAILY IVP 09/16/19 09:00 10/12/19 08:59 Piperacillin Sod/ Tazobactam Sod 3.375 gm/Sodium Chloride 110 ml @ 27.5 mls/hr EVERY 8 HOURS IVPB 09/16/19 06:00 09/19/19 10:29 09/16/19 05:31 Vancomycin HCl (Vanco pharmacy to dose) 1 ea DAILY PRN MISC Per rx protocol 09/16/19 09:00 10/12/19 07:14 Vancomycin HCl 1 gm/Sodium Chloride 275 ml @ 183.708 mls/hr Q12HR@0600,1800 IVPB 09/16/19 06:00 09/19/19 05:59 09/16/19 05:32 Assessment/Plan Assessment/Plan IMPRESSION: 1. Respiratory failure. resolved 2. Acute hypoxemia. 3. Significant pneumonia, negative COVID. 4. Severe protein-calorie malnutrition. 5. Elevated alkaline phosphatase, 6. Significant anemia likely of chronic disease. 7. BPH. PLAN care noted imaging reviewed on oxygen respiratory care on isolation DVT prophylaxis will follow up for worsening congestion impression, plan, and exam edited and reviewed in detail care discussed with Keith Moore MD Sep 16, 2019 07:46
[2019-09-16 08:00] VITALS: BP 129/75
[2019-09-16] MEDS: Pantoprazole Inj IVP SCH (08:17)
--- NOTE | 2019-09-16 08:49 | Surgery Progress Note ---
Surgery Progress Note Subjective Additional Comments labs alicia turcios improved start tube feeds +BM Objective Last 24 Hour Vital Signs Date Time Temp Pulse Resp B/P (MAP) Pulse Ox O2 Delivery O2 Flow Rate FiO2 09/16/19 05:32 100 Nasal Cannula 2.0 28 09/16/19 04:00 113 09/16/19 04:00 99.0 112 20 143/80 (101) 99 09/16/19 00:00 97.5 110 20 146/88 (107) 100 09/16/19 00:00 Nasal Cannula 2.0 09/15/19 23:31 108 09/15/19 20:00 Nasal Cannula 2.0 09/15/19 20:00 96 09/15/19 20:00 Nasal Cannula 2.0 09/15/19 19:58 97.3 105 21 145/86 (105) 100 09/15/19 16:00 Nasal Cannula 2.0 09/15/19 16:00 90 09/15/19 16:00 97.9 97 21 139/82 (101) 99 09/15/19 12:00 Nasal Cannula 2.0 09/15/19 12:00 89 09/15/19 11:58 97.9 98 20 134/74 (94) 100 I&O Intake and Output 09/15/19 09/16/19 19:00 07:00 Intake Total 75 ml 620.0 ml Output Total 1500 ml 1600 ml Balance -1425 ml -980.0 ml IV Total 75 ml 620.0 ml Output Urine Total 1500 ml 1600 ml # Bowel Movements 1 Dressing: other Wound: other Drains: other Cardiovascular: RSR Respiratory: decreased breath sounds Abdomen: soft, non-tender, present bowel sounds, non-distended Extremities: no edema, no tenderness, no cyanosis Laboratory Tests Test 09/15/19 11:36 09/15/19 16:55 09/15/19 17:09 09/15/19 22:00 POC Whole Blood Glucose 131 MG/DL (74-106) H 124 MG/DL (74-106) H Vancomycin Level Trough 16.1 ug/mL (5.0-12.0) H Stool Occult Blood Pending Test 09/16/19 04:37 White Blood Count 9.2 K/UL (4.8-10.8) Red Blood Count 3.65 M/UL (4.70-6.10) L Hemoglobin 11.4 G/DL (14.2-18.0) L Hematocrit 33.9 % (42.0-52.0) L Mean Corpuscular Volume 93 FL (80-99) Mean Corpuscular Hemoglobin 31.4 PG (27.0-31.0) H Mean Corpuscular Hemoglobin Concent 33.7 G/DL (32.0-36.0) Red Cell Distribution Width 12.3 % (11.6-14.8) Platelet Count 578 K/UL (150-450) H Mean Platelet Volume 4.9 FL (6.5-10.1) L Neutrophils (%) (Auto) 78.3 % (45.0-75.0) H Lymphocytes (%) (Auto) 10.8 % (20.0-45.0) L Monocytes (%) (Auto) 7.8 % (1.0-10.0) Eosinophils (%) (Auto) 2.2 % (0.0-3.0) Basophils (%) (Auto) 0.8 % (0.0-2.0) Sodium Level 133 MMOL/L (136-145) L Potassium Level 3.5 MMOL/L (3.5-5.1) Chloride Level 100 MMOL/L (98-107) Carbon Dioxide Level 22 MMOL/L (21-32) Anion Gap 11 mmol/L (5-15) Blood Urea Nitrogen 5 mg/dL (7-18) L Creatinine 0.7 MG/DL (0.55-1.30) Estimat Glomerular Filtration Rate > 60 mL/min (>60) Glucose Level 111 MG/DL (74-106) H Calcium Level 8.0 MG/DL (8.5-10.1) L Magnesium Level 1.6 MG/DL (1.8-2.4) L Total Bilirubin 0.7 MG/DL (0.2-1.0) Aspartate Amino Transf (AST/SGOT) 36 U/L (15-37) Alanine Aminotransferase (ALT/SGPT) 34 U/L (12-78) Alkaline Phosphatase 184 U/L (46-116) H Pro-B-Type Natriuretic Peptide 1761 pg/mL (0-125) H Total Protein 6.8 G/DL (6.4-8.2) Albumin 1.9 G/DL (3.4-5.0) L Globulin 4.9 g/dL Albumin/Globulin Ratio 0.4 (1.0-2.7) L Plan Problems: (1) Anemia (2) Sepsis Assessment & Plan: febrile, tachycardic, abnormal labs, sob, respiratory decline covid neg in ED recent colonoscopy with perf per report treated conservatively abd exam limited given medical condition but seemingly benign non distended, no pain upon exam CXR noted. labs reviewed KUB pending does not seem to be having acute abdominal process but concerning and ddx given recent history no acute surgical intervention planned will follow with serial exams and recs thank you [facility] noted.. . likely ileus repeat in AM hold feeds for now IV fluids discussed with team [facility] reviewed improved ileus improved Tube feeds resumed will monitor residuals and tolerance +BM tube feeds as tolerated (3) Acute respiratory failure with hypoxia (4) HCAP (healthcare-associated pneumonia) (5) Fever (6) Shortness of breath (7) Tachycardia (8) Suspected COVID-19 virus infection Arnaldo Pinon Sep 16, 2019 08:49
--- NOTE | 2019-09-16 09:40 | Infectious Diseases Prog Note ---
Assessment/Plan Assessment/Plan antibiotics : vancomycin iv, zosyn A 1. pneumonia COVID 19 rapid test negative x 2 2. diabetes mellitus 3. hypertension 4. bowel perforation P 1. continue zosyn 2 more days 2. d/c iv vancomycin 3. will follow up cultures Subjective ROS Limited/Unobtainable: Yes Allergies: Coded Allergies: No Known Allergies (Unverified , 09/12/19) Objective Last 24 Hour Vital Signs Date Time Temp Pulse Resp B/P (MAP) Pulse Ox O2 Delivery O2 Flow Rate FiO2 09/16/19 08:00 102 09/16/19 08:00 97.9 102 20 129/75 (93) 100 09/16/19 05:32 100 Nasal Cannula 2.0 28 09/16/19 04:00 113 09/16/19 04:00 99.0 112 20 143/80 (101) 99 09/16/19 00:00 97.5 110 20 146/88 (107) 100 09/16/19 00:00 Nasal Cannula 2.0 09/15/19 23:31 108 09/15/19 20:00 Nasal Cannula 2.0 09/15/19 20:00 96 09/15/19 20:00 Nasal Cannula 2.0 09/15/19 19:58 97.3 105 21 145/86 (105) 100 09/15/19 16:00 Nasal Cannula 2.0 09/15/19 16:00 90 09/15/19 16:00 97.9 97 21 139/82 (101) 99 09/15/19 12:00 Nasal Cannula 2.0 09/15/19 12:00 89 09/15/19 11:58 97.9 98 20 134/74 (94) 100 Height (Feet): 6 Weight (Pounds): 179 Respiratory/Chest: lungs clear Cardiovascular: normal rate, regular rhythm, no gallop/murmur Abdomen: soft, non tender Extremities: no edema Laboratory Tests Test 09/15/19 11:36 09/15/19 16:55 09/15/19 17:09 09/15/19 22:00 POC Whole Blood Glucose 131 MG/DL (74-106) H 124 MG/DL (74-106) H Vancomycin Level Trough 16.1 ug/mL (5.0-12.0) H Stool Occult Blood Pending Test 09/16/19 04:37 White Blood Count 9.2 K/UL (4.8-10.8) Red Blood Count 3.65 M/UL (4.70-6.10) L Hemoglobin 11.4 G/DL (14.2-18.0) L Hematocrit 33.9 % (42.0-52.0) L Mean Corpuscular Volume 93 FL (80-99) Mean Corpuscular Hemoglobin 31.4 PG (27.0-31.0) H Mean Corpuscular Hemoglobin Concent 33.7 G/DL (32.0-36.0) Red Cell Distribution Width 12.3 % (11.6-14.8) Platelet Count 578 K/UL (150-450) H Mean Platelet Volume 4.9 FL (6.5-10.1) L Neutrophils (%) (Auto) 78.3 % (45.0-75.0) H Lymphocytes (%) (Auto) 10.8 % (20.0-45.0) L Monocytes (%) (Auto) 7.8 % (1.0-10.0) Eosinophils (%) (Auto) 2.2 % (0.0-3.0) Basophils (%) (Auto) 0.8 % (0.0-2.0) Sodium Level 133 MMOL/L (136-145) L Potassium Level 3.5 MMOL/L (3.5-5.1) Chloride Level 100 MMOL/L (98-107) Carbon Dioxide Level 22 MMOL/L (21-32) Anion Gap 11 mmol/L (5-15) Blood Urea Nitrogen 5 mg/dL (7-18) L Creatinine 0.7 MG/DL (0.55-1.30) Estimat Glomerular Filtration Rate > 60 mL/min (>60) Glucose Level 111 MG/DL (74-106) H Calcium Level 8.0 MG/DL (8.5-10.1) L Magnesium Level 1.6 MG/DL (1.8-2.4) L Total Bilirubin 0.7 MG/DL (0.2-1.0) Aspartate Amino Transf (AST/SGOT) 36 U/L (15-37) Alanine Aminotransferase (ALT/SGPT) 34 U/L (12-78) Alkaline Phosphatase 184 U/L (46-116) H Pro-B-Type Natriuretic Peptide 1761 pg/mL (0-125) H Total Protein 6.8 G/DL (6.4-8.2) Albumin 1.9 G/DL (3.4-5.0) L Globulin 4.9 g/dL Albumin/Globulin Ratio 0.4 (1.0-2.7) L Current Medications Medications (Trade) Dose Ordered Sig/Brooke Route PRN Reason Start Time Stop Time Status Last Admin Dose Admin Dextrose (Dextrose 50%) 25 ml Q30M PRN IV Hypoglycemia 09/16/19 03:45 12/12/19 09:44 Dextrose (Dextrose 50%) 50 ml Q30M PRN IV Hypoglycemia 09/16/19 03:45 12/12/19 09:44 Dextrose/ Electrolytes 1,000 ml @ 75 mls/hr [id number] IV 09/16/19 04:00 10/15/19 03:59 Insulin Aspart (NovoLOG) BEFORE MEALS AND HS SUBQ 09/16/19 06:30 12/12/19 11:29 Iron Sucrose 100 mg/Sodium Chloride 60 ml @ 240 mls/hr BEDTIME IV 09/16/19 21:00 09/18/19 21:14 Pantoprazole (Protonix) 40 mg DAILY IVP 09/16/19 09:00 10/12/19 08:59 09/16/19 08:17 Piperacillin Sod/ Tazobactam Sod 3.375 gm/Sodium Chloride 110 ml @ 27.5 mls/hr EVERY 8 HOURS IVPB 09/16/19 06:00 09/19/19 10:29 09/16/19 05:31 Vancomycin HCl ([facility] pharmacy to dose) 1 ea DAILY PRN MISC Per rx protocol 09/16/19 09:00 10/12/19 07:14 Vancomycin HCl 1 gm/Sodium Chloride 275 ml @ 183.708 mls/hr Q12HR@0600,1800 IVPB 09/16/19 06:00 09/19/19 05:59 09/16/19 05:32 Leticia Flanagan MD Sep 16, 2019 09:40
--- NOTE | 2019-09-16 10:58 | Diagnostic Imaging Report ---
Indication: Shortness of breath Technique: One view of the chest Comparison: 09/13/2019 Findings: Bilateral infiltrates are unchanged. There is probably a trace pleural fluid on the left. This may be new or increased since prior exam. Nasogastric feeding tube is again demonstrated. The heart size is normal Impression: New or increased small left pleural effusion. Otherwise little change director 3 days
[2019-09-16 12:00] VITALS: BP 135/74
[2019-09-16] MEDS ORDERED: Varibar Nectar 240ml MC PRN (13:45)
[2019-09-16] MEDS ORDERED: Varibar Honey 250ml MC PRN (13:45)
[2019-09-16] MEDS ORDERED: Varibar Pudding 230ml MC PRN (13:45)
[2019-09-16 16:00] VITALS: BP 143/85
--- NOTE | 2019-09-16 16:06 | General Progress Note ---
Assessment/Plan Problem List: (1) Bowel perforation ICD Codes: K63.1 - Perforation of intestine (nontraumatic) SNOMED: 08617169 (2) Anemia ICD Codes: D64.9 - Anemia, unspecified SNOMED: 625002696, 031275961 Qualifiers: Qualified Codes: D64.9 - Anemia, unspecified (3) Sepsis ICD Codes: A41.9 - Sepsis, unspecified organism SNOMED: 68133847, 624098787 Qualifiers: Qualified Codes: A41.9 - Sepsis, unspecified organism; R65.20 - Severe sepsis without septic shock; J96.01 - Acute respiratory failure with hypoxia (4) Tachycardia ICD Codes: R00.0 - Tachycardia, unspecified SNOMED: 5257774 (5) Fever ICD Codes: R50.9 - Fever, unspecified SNOMED: 716256733 (6) HCAP (healthcare-associated pneumonia) ICD Codes: J18.9 - Pneumonia, unspecified organism SNOMED: 472056405, 161695605 (7) Acute respiratory failure with hypoxia ICD Codes: J96.01 - Acute respiratory failure with hypoxia SNOMED: 40706591, 477240959 Status: stable Assessment/Plan: stable/improving cont current rx wean o2 resp rx suctioning as needed IVF monitor h/h check iron panel and stool ob transfuse as needed replace k PPI feeds when cleared by surgery No chest compressions. Intubation OK per DTR Subjective ROS Limited/Unobtainable: Yes Constitutional: Reports: malaise, weakness HEENT: Reports: no symptoms Cardiovascular: Reports: no symptoms Respiratory: Reports: no symptoms Gastrointestinal/Abdominal: Reports: no symptoms Genitourinary: Reports: no symptoms Neurologic/Psychiatric: Reports: pre-existing deficit Endocrine: Reports: no symptoms Hematologic/Lymphatic: Reports: anemia Allergies: Coded Allergies: No Known Allergies (Unverified , 09/12/19) All Systems: reviewed and negative except above Subjective no events. s/p transfusion yesterday. no reports off bleeding. no fever or chills. still with ngt. feeds on hold. Surgery noted. Okay to start feedings. Labs reviewed. Objective Last 24 Hour Vital Signs Date Time Temp Pulse Resp B/P (MAP) Pulse Ox O2 Delivery O2 Flow Rate FiO2 09/16/19 12:00 99 09/16/19 12:00 97.9 99 22 135/74 (94) 99 09/16/19 09:00 Nasal Cannula 2.0 09/16/19 08:00 102 09/16/19 08:00 97.9 102 20 129/75 (93) 100 09/16/19 05:32 100 Nasal Cannula 2.0 28 09/16/19 04:00 113 09/16/19 04:00 99.0 112 20 143/80 (101) 99 09/16/19 00:00 97.5 110 20 146/88 (107) 100 09/16/19 00:00 Nasal Cannula 2.0 09/15/19 23:31 108 09/15/19 20:00 Nasal Cannula 2.0 09/15/19 20:00 96 09/15/19 20:00 Nasal Cannula 2.0 09/15/19 19:58 97.3 105 21 145/86 (105) 100 Intake and Output 09/15/19 09/16/19 19:00 07:00 Intake Total 75 ml 695.0 ml Output Total 1500 ml 1600 ml Balance -1425 ml -905.0 ml IV Total 75 ml 695.0 ml Output Urine Total 1500 ml 1600 ml # Bowel Movements 1 Laboratory Tests 09/15/19 16:55: Vancomycin Level Trough 16.1H 09/15/19 17:09: POC Whole Blood Glucose 124H 09/15/19 22:00: Stool Occult Blood Positive 09/16/19 04:37: White Blood Count 9.2, Red Blood Count 3.65L, Hemoglobin 11.4L, Hematocrit 33.9L , Mean Corpuscular Volume 93, Mean Corpuscular Hemoglobin 31.4H, Mean Corpuscular Hemoglobin Concent 33.7, Red Cell Distribution Width 12.3, Platelet Count 578H, Mean Platelet Volume 4.9L, Neutrophils (%) (Auto) 78.3H, Lymphocytes (%) (Auto) 10.8L, Monocytes (%) (Auto) 7.8, Eosinophils (%) (Auto) 2.2, Basophils (%) (Auto) 0.8, Sodium Level 133L, Potassium Level 3.5, Chloride Level 100, Carbon Dioxide Level 22, Anion Gap 11, Blood Urea Nitrogen 5L, Creatinine 0.7, Estimat Glomerular Filtration Rate > 60, Glucose Level 111H, Calcium Level 8.0L, Magnesium Level 1.6L, Total Bilirubin 0.7, Aspartate Amino Transf (AST/SGOT) 36, Alanine Aminotransferase (ALT/SGPT) 34, Alkaline Phosphatase 184H, Pro-B-Type Natriuretic Peptide 1761H, Total Protein 6.8, Albumin 1.9L, Globulin 4.9, Albumin/Globulin Ratio 0.4L 09/16/19 12:04: POC Whole Blood Glucose 117H 09/16/19 15:55: POC Whole Blood Glucose 123H Height (Feet): 6 Weight (Pounds): 179 Objective General Appearance: WD/WN, lethargic, confused, cachetic EENT: PERRL/EOMI, normal ENT inspection Neck: non-tender, normal alignment Cardiovascular: normal rate, regular rhythm Respiratory/Chest: no respiratory distress, no accessory muscle use, rhonchi - bilaterally Abdomen: normal bowel sounds, non tender, soft, no organomegaly, no mass Edema: no edema noted Arm (L), no edema noted Arm (R), no edema noted Leg (L), no edema noted Leg (R), no edema noted Pedal (L), no edema noted Pedal (R), no edema noted Generalized Neurologic: disoriented, aphasia Skin: normal pigmentation Lymphatic: normal anterior cervical (L), normal anterior cervical (R) Aaron Meza MD Sep 16, 2019 16:06
[2019-09-16 20:00] VITALS: BP 130/80
[2019-09-16] MEDS: Iron Sucrose 100 MG in NS 55 ML IV SCH (20:39)
[2019-09-17] VITALS: BP 148/85
--- NOTE | 2019-09-17 03:00 | Progress Note ---
DATE: 09/16/2019 CARDIOLOGY PROGRESS NOTE SUBJECTIVE: The patient had swallow evaluation, feedings have been initiated. His blood pressure parameters remained stable. Cardiac monitoring, sinus tachycardia. PHYSICAL EXAMINATION: LUNGS: Bilateral breath sounds with rhonchi. HEART: Regular rhythm. Rapid rate. Normal S1, S2. ABDOMEN: Soft. Trace edema. LABORATORY AND DIAGNOSTIC DATA: White count 9.2, hemoglobin 11.4. Glucose in the 120 range. Sodium 133, potassium 3.5, magnesium 1.6. BUN 5, creatinine 0.7. Pro natriuretic peptide 1761. IMPRESSION: 1. Recovering ileus. 2. Sepsis. 3. Healthcare associated pneumonia. 4. Severe protein-calorie malnutrition. 5. Paroxysmal atrial fibrillation. 6. Sinus tachycardia. 7. Hypokalemia. 8. Hypomagnesemia. 9. Status post recent bowel perforation. PLAN: 1. Advance feedings as tolerated and taper off IV fluids. 2. Additional IV magnesium. 3. Additional potassium replacement. 4. Titrate cardiovascular regimen to optimize volume status and blood pressure control. Avila Ramos M.D. DR: Evelia JOB#: [id number] CC:
[2019-09-17 04:00] VITALS: BP 150/85
[2019-09-17] MEDS: Piperacillin/Tazobactam 3.375 GM in NS 110 ML IVPB SCH ×3 (05:18→21:47)
[2019-09-17 05:33] LABS: BASOPHILS % (AUTO) 0.6 % (0.0-2.0); EOSINOPHILS % (AUTO) 3.2 % (0.0-3.0); HEMATOCRIT 31.3 % (42.0-52.0); HEMOGLOBIN 10.2 G/DL (14.2-18.0); LYMPHOCYTES % (AUTO) 10.8 % (20.0-45.0); MEAN CORPUSCULAR VOLUME 93 FL (80-99); MONOCYTES % (AUTO) 8.7 % (1.0-10.0); NEUTROPHILS % (AUTO) 76.7 % (45.0-75.0); PLATELET COUNT 508 K/UL (150-450); RED BLOOD COUNT 3.35 M/UL (4.70-6.10); RED CELL DISTRIBUTION WIDTH 12.4 % (11.6-14.8); WHITE BLOOD COUNT 7.8 K/UL (4.8-10.8)
[2019-09-17 05:54] LABS: ALANINE AMINOTRANSFERASE 24 U/L (12-78); ALBUMIN 1.5 G/DL (3.4-5.0); ALBUMIN/GLOBULIN RATIO 0.4 (1.0-2.7); ALKALINE PHOSPHATASE 176 U/L (46-116); ANION GAP 9 mmol/L (5-15); ASPARTATE AMINO TRANSFERASE 30 U/L (15-37); BILIRUBIN,TOTAL 0.4 MG/DL (0.2-1.0); BLOOD UREA NITROGEN 6 mg/dL (7-18); CALCIUM 7.4 MG/DL (8.5-10.1); CARBON DIOXIDE 23 MMOL/L (21-32); CHLORIDE 102 MMOL/L (98-107); CREATININE 0.7 MG/DL (0.55-1.30); POTASSIUM 3.3 MMOL/L (3.5-5.1); SODIUM 134 MMOL/L (136-145)
[2019-09-17] MEDS: NovoLOG Insulin Flexpen SUBQ SCH ×4 (06:30→20:30)
[2019-09-17 08:00] VITALS: BP 136/74
[2019-09-17] MEDS: Pantoprazole Inj IVP SCH (08:55)
--- NOTE | 2019-09-17 10:04 | Pulmonology Progress Note ---
Subjective ROS Limited/Unobtainable: Yes Constitutional: Denies: fever Allergies: Coded Allergies: No Known Allergies (Unverified , 09/12/19) All Systems: reviewed and negative except above Subjective overnight events reviewed care noted on oxygen and stable no distress at present Objective Last 24 Hour Vital Signs Date Time Temp Pulse Resp B/P (MAP) Pulse Ox O2 Delivery O2 Flow Rate FiO2 09/17/19 09:00 Nasal Cannula 2.0 09/17/19 08:54 102 136/74 09/17/19 08:00 97.5 102 20 136/74 (94) 95 09/17/19 04:00 Nasal Cannula 2.0 09/17/19 04:00 97.9 87 20 150/85 (106) 94 09/17/19 04:00 109 09/17/19 00:00 Nasal Cannula 2.0 09/17/19 00:00 113 09/17/19 00:00 98.9 111 20 148/85 (106) 100 09/16/19 21:00 Nasal Cannula 2.0 09/16/19 20:00 98.6 115 22 130/80 (97) 100 09/16/19 20:00 113 09/16/19 19:45 100 Nasal Cannula 2.0 28 09/16/19 16:00 97.9 108 22 143/85 (104) 99 09/16/19 16:00 111 09/16/19 12:00 99 09/16/19 12:00 97.9 99 22 135/74 (94) 99 Intake and Output 09/16/19 09/17/19 18:59 06:59 Intake Total 1180 ml 1275.0 ml Output Total 1400 ml 900 ml Balance -220 ml 375.0 ml Free Water 90 ml 180 ml IV Total 900 ml 695.0 ml Tube Feeding 190 ml 400 ml Output Urine Total 1400 ml 900 ml # Bowel Movements 1 Objective WDWN NAD clear breath sounds bilaterally without rhonchi or wheeze [id number] without MRG NABS nontender no HSM no CCE nonfocal Microbiology Date/Time Source Procedure Growth Status 09/14/19 16:00 Sputum Gram Stain - Final Resulted 09/14/19 16:00 Sputum Sputum Culture - Preliminary NO GROWTH Resulted Laboratory Tests 09/16/19 12:04: POC Whole Blood Glucose 117H 09/16/19 15:55: POC Whole Blood Glucose 123H 09/16/19 18:48: POC Whole Blood Glucose 133H 09/16/19 20:35: POC Whole Blood Glucose 146H 09/17/19 04:30: White Blood Count 7.8, Red Blood Count 3.35L, Hemoglobin 10.2L, Hematocrit 31.3L , Mean Corpuscular Volume 93, Mean Corpuscular Hemoglobin 30.5, Mean Corpuscular Hemoglobin Concent 32.6, Red Cell Distribution Width 12.4, Platelet Count 508H, Mean Platelet Volume 4.7L, Neutrophils (%) (Auto) 76.7H, Lymphocytes (%) (Auto) 10.8L, Monocytes (%) (Auto) 8.7, Eosinophils (%) (Auto) 3.2H, Basophils (%) (Auto) 0.6, Sodium Level 134L, Potassium Level 3.3L, Chloride Level 102, Carbon Dioxide Level 23, Anion Gap 9, Blood Urea Nitrogen 6L , Creatinine 0.7, Estimat Glomerular Filtration Rate > 60, Glucose Level 144H, Calcium Level 7.4L, Total Bilirubin 0.4, Aspartate Amino Transf (AST/SGOT) 30, Alanine Aminotransferase (ALT/SGPT) 24, Alkaline Phosphatase 176H, Total Protein 5.7L, Albumin 1.5L, Globulin 4.2, Albumin/Globulin Ratio 0.4L Current Medications Medications (Trade) Dose Ordered Sig/Brooke Route PRN Reason Start Time Stop Time Status Last Admin Dose Admin Barium Sulfate (Varibar Honey) 250 ml NOW PRN RAD 09/16/19 13:45 09/19/19 13:40 Barium Sulfate (Varibar [place]) 240 ml NOW PRN RAD 09/16/19 13:45 09/19/19 13:40 Barium Sulfate (Varibar Pudding) 230 ml NOW PRN MC RAD 09/16/19 13:45 09/19/19 13:40 Dextrose (Dextrose 50%) 25 ml Q30M PRN IV Hypoglycemia 09/16/19 03:45 12/12/19 09:44 Dextrose (Dextrose 50%) 50 ml Q30M PRN IV Hypoglycemia 09/16/19 03:45 12/12/19 09:44 Insulin Aspart (NovoLOG) BEFORE MEALS AND HS SUBQ 09/16/19 06:30 12/12/19 11:29 Iron Sucrose 100 mg/Sodium Chloride 60 ml @ 240 mls/hr BEDTIME IV 09/16/19 21:00 09/18/19 21:14 09/16/19 20:39 Metoprolol Tartrate (Lopressor) 25 mg Q12HR ORAL 09/17/19 09:00 12/16/19 08:59 09/17/19 08:54 Pantoprazole (Protonix) 40 mg DAILY IVP 09/16/19 09:00 10/12/19 08:59 09/17/19 08:55 Piperacillin Sod/ Tazobactam Sod 3.375 gm/Sodium Chloride 110 ml @ 27.5 mls/hr EVERY 8 HOURS IVPB 09/16/19 06:00 09/19/19 10:29 09/17/19 05:18 Assessment/Plan Assessment/Plan IMPRESSION: 1. Respiratory failure. 2. Acute hypoxemia. 3. Significant pneumonia, negative COVID. 4. Severe protein-calorie malnutrition. 5. Elevated alkaline phosphatase, 6. Significant anemia likely of chronic disease. 7. BPH. 8. Pleural effusion PLAN care noted imaging reviewed and will monitor effusion on oxygen respiratory care on isolation DVT prophylaxis will follow up impression, plan, and exam edited and reviewed in detail care discussed with Keith Moore MD Sep 17, 2019 10:04
--- NOTE | 2019-09-17 10:14 | Infectious Diseases Prog Note ---
Assessment/Plan Assessment/Plan antibiotics : zosyn A 1. pneumonia COVID 19 rapid test negative x 2 2. diabetes mellitus 3. hypertension 4. bowel perforation P 1. continue zosyn 1 more day 2. will follow up cultures Subjective ROS Limited/Unobtainable: Yes Allergies: Coded Allergies: No Known Allergies (Unverified , 09/12/19) Objective Last 24 Hour Vital Signs Date Time Temp Pulse Resp B/P (MAP) Pulse Ox O2 Delivery O2 Flow Rate FiO2 09/17/19 09:00 Nasal Cannula 2.0 09/17/19 08:54 102 136/74 09/17/19 08:00 97.5 102 20 136/74 (94) 95 09/17/19 04:00 Nasal Cannula 2.0 09/17/19 04:00 97.9 87 20 150/85 (106) 94 09/17/19 04:00 109 09/17/19 00:00 Nasal Cannula 2.0 09/17/19 00:00 113 09/17/19 00:00 98.9 111 20 148/85 (106) 100 09/16/19 21:00 Nasal Cannula 2.0 09/16/19 20:00 98.6 115 22 130/80 (97) 100 09/16/19 20:00 113 09/16/19 19:45 100 Nasal Cannula 2.0 28 09/16/19 16:00 97.9 108 22 143/85 (104) 99 09/16/19 16:00 111 09/16/19 12:00 99 09/16/19 12:00 97.9 99 22 135/74 (94) 99 Height (Feet): 6 Weight (Pounds): 179 Respiratory/Chest: lungs clear Cardiovascular: normal rate, no gallop/murmur Abdomen: soft, non tender Extremities: no edema Microbiology Date/Time Source Procedure Growth Status 09/14/19 16:00 Sputum Gram Stain - Final Resulted 09/14/19 16:00 Sputum Sputum Culture - Preliminary NO GROWTH Resulted Laboratory Tests Test 09/16/19 12:04 09/16/19 15:55 09/16/19 18:48 09/16/19 20:35 POC Whole Blood Glucose 117 MG/DL (74-106) H 123 MG/DL (74-106) H 133 MG/DL (74-106) H 146 MG/DL (74-106) H Test 7/11/20 04:30 White Blood Count 7.8 K/UL (4.8-10.8) Red Blood Count 3.35 M/UL (4.70-6.10) L Hemoglobin 10.2 G/DL (14.2-18.0) L Hematocrit 31.3 % (42.0-52.0) L Mean Corpuscular Volume 93 FL (80-99) Mean Corpuscular Hemoglobin 30.5 PG (27.0-31.0) Mean Corpuscular Hemoglobin Concent 32.6 G/DL (32.0-36.0) Red Cell Distribution Width 12.4 % (11.6-14.8) Platelet Count 508 K/UL (150-450) H Mean Platelet Volume 4.7 FL (6.5-10.1) L Neutrophils (%) (Auto) 76.7 % (45.0-75.0) H Lymphocytes (%) (Auto) 10.8 % (20.0-45.0) L Monocytes (%) (Auto) 8.7 % (1.0-10.0) Eosinophils (%) (Auto) 3.2 % (0.0-3.0) H Basophils (%) (Auto) 0.6 % (0.0-2.0) Sodium Level 134 MMOL/L (136-145) L Potassium Level 3.3 MMOL/L (3.5-5.1) L Chloride Level 102 MMOL/L (98-107) Carbon Dioxide Level 23 MMOL/L (21-32) Anion Gap 9 mmol/L (5-15) Blood Urea Nitrogen 6 mg/dL (7-18) L Creatinine 0.7 MG/DL (0.55-1.30) Estimat Glomerular Filtration Rate > 60 mL/min (>60) Glucose Level 144 MG/DL (74-106) H Calcium Level 7.4 MG/DL (8.5-10.1) L Total Bilirubin 0.4 MG/DL (0.2-1.0) Aspartate Amino Transf (AST/SGOT) 30 U/L (15-37) Alanine Aminotransferase (ALT/SGPT) 24 U/L (12-78) Alkaline Phosphatase 176 U/L (46-116) H Total Protein 5.7 G/DL (6.4-8.2) L Albumin 1.5 G/DL (3.4-5.0) L Globulin 4.2 g/dL Albumin/Globulin Ratio 0.4 (1.0-2.7) L Current Medications Medications (Trade) Dose Ordered Sig/Brooke Route PRN Reason Start Time Stop Time Status Last Admin Dose Admin Barium Sulfate (Varibar Honey) 250 ml NOW PRN MC RAD 09/16/19 13:45 09/19/19 13:40 Barium Sulfate (Varibar [place]) 240 ml NOW PRN MC RAD 09/16/19 13:45 09/19/19 13:40 Barium Sulfate (Varibar Pudding) 230 ml NOW PRN MC RAD 09/16/19 13:45 09/19/19 13:40 Dextrose (Dextrose 50%) 25 ml Q30M PRN IV Hypoglycemia 09/16/19 03:45 12/12/19 09:44 Dextrose (Dextrose 50%) 50 ml Q30M PRN IV Hypoglycemia 09/16/19 03:45 12/12/19 09:44 Insulin Aspart (NovoLOG) BEFORE MEALS AND HS SUBQ 09/16/19 06:30 12/12/19 11:29 Iron Sucrose 100 mg/Sodium Chloride 60 ml @ 240 mls/hr BEDTIME IV 09/16/19 21:00 09/18/19 21:14 09/16/19 20:39 Metoprolol Tartrate (Lopressor) 25 mg Q12HR ORAL 09/17/19 09:00 12/16/19 08:59 09/17/19 08:54 Pantoprazole (Protonix) 40 mg DAILY IVP 09/16/19 09:00 10/12/19 08:59 09/17/19 08:55 Piperacillin Sod/ Tazobactam Sod 3.375 gm/Sodium Chloride 110 ml @ 27.5 mls/hr EVERY 8 HOURS IVPB 09/16/19 06:00 09/19/19 10:29 09/17/19 05:18 Leticia Flanagan MD Sep 17, 2019 10:14
[2019-09-17 11:38] VITALS: BP 133/65
--- NOTE | 2019-09-17 13:50 | Surgery Progress Note ---
Surgery Progress Note Subjective Additional Comments no acute events labs noted imaging reviewed Objective Last 24 Hour Vital Signs Date Time Temp Pulse Resp B/P (MAP) Pulse Ox O2 Delivery O2 Flow Rate FiO2 09/17/19 12:00 91 09/17/19 11:38 98.1 93 18 133/65 (87) 96 09/17/19 09:00 Nasal Cannula 2.0 09/17/19 08:54 102 136/74 09/17/19 08:00 103 09/17/19 08:00 97.5 102 20 136/74 (94) 95 09/17/19 04:00 Nasal Cannula 2.0 09/17/19 04:00 97.9 87 20 150/85 (106) 94 09/17/19 04:00 109 09/17/19 00:00 Nasal Cannula 2.0 09/17/19 00:00 113 09/17/19 00:00 98.9 111 20 148/85 (106) 100 09/16/19 21:00 Nasal Cannula 2.0 09/16/19 20:00 98.6 115 22 130/80 (97) 100 09/16/19 20:00 113 09/16/19 19:45 100 Nasal Cannula 2.0 28 09/16/19 16:00 97.9 108 22 143/85 (104) 99 09/16/19 16:00 111 I&O Intake and Output 09/16/19 09/17/19 19:00 07:00 Intake Total 1270 ml 1110.0 ml Output Total 1400 ml 900 ml Balance -130 ml 210.0 ml Free Water 150 ml 120 ml IV Total 900 ml 620.0 ml Tube Feeding 220 ml 370 ml Output Urine Total 1400 ml 900 ml # Bowel Movements 1 Dressing: other Wound: other Drains: other Cardiovascular: RSR Respiratory: decreased breath sounds Abdomen: soft, non-tender, present bowel sounds Extremities: no cyanosis Laboratory Tests Test 09/16/19 15:55 09/16/19 18:48 09/16/19 20:35 09/17/19 04:30 POC Whole Blood Glucose 123 MG/DL (74-106) H 133 MG/DL (74-106) H 146 MG/DL (74-106) H White Blood Count 7.8 K/UL (4.8-10.8) Red Blood Count 3.35 M/UL (4.70-6.10) L Hemoglobin 10.2 G/DL (14.2-18.0) L Hematocrit 31.3 % (42.0-52.0) L Mean Corpuscular Volume 93 FL (80-99) Mean Corpuscular Hemoglobin 30.5 PG (27.0-31.0) Mean Corpuscular Hemoglobin Concent 32.6 G/DL (32.0-36.0) Red Cell Distribution Width 12.4 % (11.6-14.8) Platelet Count 508 K/UL (150-450) H Mean Platelet Volume 4.7 FL (6.5-10.1) L Neutrophils (%) (Auto) 76.7 % (45.0-75.0) H Lymphocytes (%) (Auto) 10.8 % (20.0-45.0) L Monocytes (%) (Auto) 8.7 % (1.0-10.0) Eosinophils (%) (Auto) 3.2 % (0.0-3.0) H Basophils (%) (Auto) 0.6 % (0.0-2.0) Sodium Level 134 MMOL/L (136-145) L Potassium Level 3.3 MMOL/L (3.5-5.1) L Chloride Level 102 MMOL/L (98-107) Carbon Dioxide Level 23 MMOL/L (21-32) Anion Gap 9 mmol/L (5-15) Blood Urea Nitrogen 6 mg/dL (7-18) L Creatinine 0.7 MG/DL (0.55-1.30) Estimat Glomerular Filtration Rate > 60 mL/min (>60) Glucose Level 144 MG/DL (74-106) H Calcium Level 7.4 MG/DL (8.5-10.1) L Total Bilirubin 0.4 MG/DL (0.2-1.0) Aspartate Amino Transf (AST/SGOT) 30 U/L (15-37) Alanine Aminotransferase (ALT/SGPT) 24 U/L (12-78) Alkaline Phosphatase 176 U/L (46-116) H Total Protein 5.7 G/DL (6.4-8.2) L Albumin 1.5 G/DL (3.4-5.0) L Globulin 4.2 g/dL Albumin/Globulin Ratio 0.4 (1.0-2.7) L Test 7/11/20 13:05 POC Whole Blood Glucose 146 MG/DL (74-106) H Plan Problems: (1) Anemia (2) Sepsis Assessment & Plan: febrile, tachycardic, abnormal labs, sob, respiratory decline covid neg in ED recent colonoscopy with perf per report treated conservatively abd exam limited given medical condition but seemingly benign non distended, no pain upon exam CXR noted. labs reviewed KUB pending does not seem to be having acute abdominal process but concerning and ddx given recent history no acute surgical intervention planned will follow with serial exams and recs thank you IVAN noted.. . likely ileus repeat in AM hold feeds for now IV fluids discussed with team KUGeoffrey reviewed improved ileus improved Tube feeds resumed will monitor residuals and tolerance +BM tube feeds as tolerated (3) Acute respiratory failure with hypoxia (4) HCAP (healthcare-associated pneumonia) (5) Fever (6) Shortness of breath (7) Tachycardia (8) Suspected COVID-19 virus infection Arnaldo Pinon Sep 17, 2019 13:50
[2019-09-17 16:00] VITALS: BP 156/87
--- NOTE | 2019-09-17 16:34 | General Progress Note ---
Assessment/Plan Problem List: (1) Bowel perforation ICD Codes: K63.1 - Perforation of intestine (nontraumatic) SNOMED: 43814394 (2) Anemia ICD Codes: D64.9 - Anemia, unspecified SNOMED: 660956842, 609049020 Qualifiers: Qualified Codes: D64.9 - Anemia, unspecified (3) Sepsis ICD Codes: A41.9 - Sepsis, unspecified organism SNOMED: 22138024, 911983980 Qualifiers: Qualified Codes: A41.9 - Sepsis, unspecified organism; R65.20 - Severe sepsis without septic shock; J96.01 - Acute respiratory failure with hypoxia (4) Tachycardia ICD Codes: R00.0 - Tachycardia, unspecified SNOMED: 1635944 (5) Fever ICD Codes: R50.9 - Fever, unspecified SNOMED: 724916541 (6) HCAP (healthcare-associated pneumonia) ICD Codes: J18.9 - Pneumonia, unspecified organism SNOMED: 343188862, 624926211 (7) Acute respiratory failure with hypoxia ICD Codes: J96.01 - Acute respiratory failure with hypoxia SNOMED: 85680333, 790372816 Status: stable Assessment/Plan: stable/improving cont current rx wean o2 resp rx suctioning as needed IVF/tube feeds monitor h/h check iron panel and stool ob transfuse as needed replace k PPI dc planning tomorrow or thursday Subjective ROS Limited/Unobtainable: Yes Constitutional: Reports: malaise, weakness HEENT: Reports: no symptoms Cardiovascular: Reports: no symptoms Respiratory: Reports: cough Gastrointestinal/Abdominal: Reports: difficulty swallowing Genitourinary: Reports: no symptoms Neurologic/Psychiatric: Reports: pre-existing deficit Endocrine: Reports: no symptoms Hematologic/Lymphatic: Reports: anemia Allergies: Coded Allergies: No Known Allergies (Unverified , 09/12/19) All Systems: reviewed and negative except above Subjective No overnight events. Remained stable on the NC. No fevers or chills. Labs reviewed. Noted to have low potassium. Remains on IV antibiotics. Cleared for tube feeds by surgery. Objective Last 24 Hour Vital Signs Date Time Temp Pulse Resp B/P (MAP) Pulse Ox O2 Delivery O2 Flow Rate FiO2 09/17/19 12:00 91 09/17/19 11:38 98.1 93 18 133/65 (87) 96 09/17/19 09:00 Nasal Cannula 2.0 09/17/19 08:54 102 136/74 09/17/19 08:00 103 09/17/19 08:00 97.5 102 20 136/74 (94) 95 09/17/19 04:00 Nasal Cannula 2.0 09/17/19 04:00 97.9 87 20 150/85 (106) 94 09/17/19 04:00 109 09/17/19 00:00 Nasal Cannula 2.0 09/17/19 00:00 113 09/17/19 00:00 98.9 111 20 148/85 (106) 100 09/16/19 21:00 Nasal Cannula 2.0 09/16/19 20:00 98.6 115 22 130/80 (97) 100 09/16/19 20:00 113 09/16/19 19:45 100 Nasal Cannula 2.0 28 Intake and Output 09/16/19 09/17/19 19:00 07:00 Intake Total 1270 ml 1110.0 ml Output Total 1400 ml 900 ml Balance -130 ml 210.0 ml Free Water 150 ml 120 ml IV Total 900 ml 620.0 ml Tube Feeding 220 ml 370 ml Output Urine Total 1400 ml 900 ml # Bowel Movements 1 Laboratory Tests 09/16/19 18:48: POC Whole Blood Glucose 133H 09/16/19 20:35: POC Whole Blood Glucose 146H 09/17/19 04:30: White Blood Count 7.8, Red Blood Count 3.35L, Hemoglobin 10.2L, Hematocrit 31.3L , Mean Corpuscular Volume 93, Mean Corpuscular Hemoglobin 30.5, Mean Corpuscular Hemoglobin Concent 32.6, Red Cell Distribution Width 12.4, Platelet Count 508H, Mean Platelet Volume 4.7L, Neutrophils (%) (Auto) 76.7H, Lymphocytes (%) (Auto) 10.8L, Monocytes (%) (Auto) 8.7, Eosinophils (%) (Auto) 3.2H, Basophils (%) (Auto) 0.6, Sodium Level 134L, Potassium Level 3.3L, Chloride Level 102, Carbon Dioxide Level 23, Anion Gap 9, Blood Urea Nitrogen 6L , Creatinine 0.7, Estimat Glomerular Filtration Rate > 60, Glucose Level 144H, Calcium Level 7.4L, Total Bilirubin 0.4, Aspartate Amino Transf (AST/SGOT) 30, Alanine Aminotransferase (ALT/SGPT) 24, Alkaline Phosphatase 176H, Total Protein 5.7L, Albumin 1.5L, Globulin 4.2, Albumin/Globulin Ratio 0.4L 09/17/19 13:05: POC Whole Blood Glucose 146H Height (Feet): 6 Weight (Pounds): 179 Objective General Appearance: WD/WN, lethargic, confused, cachetic EENT: PERRL/EOMI, normal ENT inspection Neck: non-tender, normal alignment Cardiovascular: normal rate, regular rhythm Respiratory/Chest: no respiratory distress, no accessory muscle use, rhonchi - bilaterally Abdomen: normal bowel sounds, non tender, soft, no organomegaly, no mass Edema: no edema noted Arm (L), no edema noted Arm (R), no edema noted Leg (L), no edema noted Leg (R), no edema noted Pedal (L), no edema noted Pedal (R), no edema noted Generalized Neurologic: disoriented, aphasia Skin: normal pigmentation Lymphatic: normal anterior cervical (L), normal anterior cervical (R) Aaron Meza MD Sep 17, 2019 16:34
[2019-09-17 20:00] VITALS: BP 154/91
[2019-09-17] MEDS: Metoprolol Tartrate 50mg tab ORAL SCH (20:19)
[2019-09-17] MEDS: Iron Sucrose 100 MG in NS 55 ML IV SCH (20:22)
[2019-09-17] MEDS ORDERED: Tamsulosin 0.4mg cap ORAL SCH (21:00)
--- NOTE | 2019-09-17 21:30 | Progress Note ---
DATE: 09/17/2019 CARDIOLOGY PROGRESS NOTE SUBJECTIVE: The patient remains on nasal cannula. No distress. Blood pressure parameters remained stable. Monitored rhythm, sinus tachycardia, atrial ectopy. PHYSICAL EXAMINATION: VITAL SIGNS: Blood pressure 133/65, heart rate 93, respirations 18, afebrile. LUNGS: Bilateral breath sounds with rhonchi. CARDIAC: Regular rhythm. Rapid rate. Normal S1, S2. ABDOMEN: Soft. No edema. LABORATORY DATA: White count 7.8, hemoglobin 10.2. Sodium 134, potassium 3.3, BUN 6, creatinine 0.7. Albumin 1.5. Cultures remain negative. IMPRESSION: 1. Healthcare-associated pneumonia. 2. Recovered ileus. 3. Recent bowel perforation. 4. Severe sepsis, resolved. 5. Sinus tachycardia, improved. 6. Anemia status post transfusion. 7. Type 2 diabetes mellitus with good better blood glucose levels. 8. Acute myocardial ischemia, resolved. 9. Hypokalemia. 10. Acute on chronic diastolic congestive heart failure. PLAN: 1. Antimicrobials. 2. Respiratory hygiene. 3. Taper oxygen. 4. Potassium replacement. 5. Recheck laboratory studies. 6. Off IV fluids. 7. Diet has been advanced, protein supplement. 8. Reassess for diuresis. Avila Ramos M.D. DR: THEA JOB#: [id number] CC:
[2019-09-18] VITALS: BP 117/65
[2019-09-18 04:00] VITALS: BP 109/63
[2019-09-18] MEDS: Piperacillin/Tazobactam 3.375 GM in NS 110 ML IVPB SCH ×2 (05:57→14:00)
[2019-09-18] MEDS: NovoLOG Insulin Flexpen SUBQ SCH ×2 (05:58→11:30)
--- NOTE | 2019-09-18 07:44 | Pulmonology Progress Note ---
Subjective ROS Limited/Unobtainable: Yes Constitutional: Denies: fever Allergies: Coded Allergies: No Known Allergies (Unverified , 09/12/19) All Systems: reviewed and negative except above Subjective overnight events reviewed care noted tachycardic and dyspneic plans to dc antibiotics noted no distress at present Objective Last 24 Hour Vital Signs Date Time Temp Pulse Resp B/P (MAP) Pulse Ox O2 Delivery O2 Flow Rate FiO2 09/18/19 04:00 99.1 90 21 109/63 (78) 100 09/18/19 04:00 89 09/18/19 00:00 99.5 95 22 117/65 (82) 99 09/18/19 00:00 86 09/17/19 21:00 Nasal Cannula 2.0 09/17/19 20:48 100.1 09/17/19 20:19 127 154/91 09/17/19 20:00 115 09/17/19 20:00 100.9 127 23 154/91 (112) 98 09/17/19 19:58 98 Nasal Cannula 2.0 28 09/17/19 16:00 98.0 109 20 156/87 (110) 97 09/17/19 16:00 111 09/17/19 12:00 91 09/17/19 11:38 98.1 93 18 133/65 (87) 96 09/17/19 09:00 Nasal Cannula 2.0 09/17/19 08:54 102 136/74 09/17/19 08:00 103 09/17/19 08:00 97.5 102 20 136/74 (94) 95 Intake and Output 09/17/19 09/18/19 19:00 07:00 Intake Total 720 ml 550 ml Output Total 1400 ml 1890 ml Balance -680 ml -1340 ml Free Water 120 ml Tube Feeding 600 ml 550 ml Output Urine Total 1400 ml 1890 ml # Bowel Movements 2 Objective WDWN NAD reduced breath sounds bilaterally without rhonchi or wheeze [id number] tachy without MRG NABS nontender no HSM no CCE nonfocal Laboratory Tests 09/17/19 13:05: POC Whole Blood Glucose 146H 09/17/19 17:02: POC Whole Blood Glucose 196H 09/17/19 17:03: POC Whole Blood Glucose 165H 09/17/19 20:22: POC Whole Blood Glucose 145H 09/18/19 05:54: POC Whole Blood Glucose 189H Current Medications Medications (Trade) Dose Ordered Sig/Brooke Route PRN Reason Start Time Stop Time Status Last Admin Dose Admin Acetaminophen (Tylenol) 650 mg Q4H PRN ORAL Temp >100.5 09/17/19 20:15 10/17/19 20:14 09/17/19 20:18 Barium Sulfate (Varibar Honey) 250 ml NOW PRN MC RAD 09/16/19 13:45 09/19/19 13:40 Barium Sulfate (Varibar Luttrell) 240 ml NOW PRN MC RAD 09/16/19 13:45 09/19/19 13:40 Barium Sulfate (Varibar Pudding) 230 ml NOW PRN MC RAD 09/16/19 13:45 09/19/19 13:40 Dextrose (Dextrose 50%) 25 ml Q30M PRN IV Hypoglycemia 09/16/19 03:45 12/12/19 09:44 Dextrose (Dextrose 50%) 50 ml Q30M PRN IV Hypoglycemia 09/16/19 03:45 12/12/19 09:44 Finasteride (Proscar) 5 mg DAILY ORAL 09/18/19 09:00 12/17/19 08:59 Insulin Aspart (NovoLOG) BEFORE MEALS AND HS SUBQ 09/16/19 06:30 12/12/19 11:29 09/18/19 05:58 Iron Sucrose 100 mg/Sodium Chloride 60 ml @ 240 mls/hr BEDTIME IV 09/16/19 21:00 09/18/19 21:14 09/17/19 20:22 Metoprolol Tartrate (Lopressor) 50 mg Q12HR ORAL 09/17/19 21:00 12/16/19 20:59 09/17/19 20:19 Pantoprazole (Protonix) 40 mg DAILY IVP 09/16/19 09:00 10/12/19 08:59 09/17/19 08:55 Piperacillin Sod/ Tazobactam Sod 3.375 gm/Sodium Chloride 110 ml @ 27.5 mls/hr EVERY 8 HOURS IVPB 09/16/19 06:00 09/19/19 10:29 09/18/19 05:57 Tamsulosin HCl (Flomax) 0.4 mg BEDTIME ORAL 09/17/19 21:00 10/17/19 20:59 09/17/19 20:18 Assessment/Plan Assessment/Plan IMPRESSION: 1. Respiratory failure. 2. Acute hypoxemia. 3. Significant pneumonia, negative COVID. 4. Severe protein-calorie malnutrition. 5. Elevated alkaline phosphatase, 6. Significant anemia likely of chronic disease. 7. BPH. 8. Pleural effusion 9. Tachyarrythmia PLAN diltiazem BIPAP ABG CXR and venous US care noted imaging reviewed and will monitor for change PRN oxygen respiratory care on isolation DVT prophylaxis will follow up dc antibiotics today impression, plan, and exam edited and reviewed in detail care discussed with Keith Moore MD Sep 18, 2019 07:44
[2019-09-18 08:00] VITALS: BP 144/83
[2019-09-18] MEDS ORDERED: dilTIAZem HCl 50mg/10ml Inj IVP SCH (08:13)
[2019-09-18 08:23] LABS: BASOPHILS % (AUTO) 0.6 % (0.0-2.0); EOSINOPHILS % (AUTO) 2.3 % (0.0-3.0); HEMATOCRIT 40.1 % (42.0-52.0); LYMPHOCYTES % (AUTO) 13.7 % (20.0-45.0); MEAN CORPUSCULAR VOLUME 95 FL (80-99); MONOCYTES % (AUTO) 5.2 % (1.0-10.0); NEUTROPHILS % (AUTO) 78.1 % (45.0-75.0); PLATELET COUNT 559 K/UL (150-450); RED BLOOD COUNT 4.23 M/UL (4.70-6.10); WHITE BLOOD COUNT 12.2 K/UL (4.8-10.8)
--- NOTE | 2019-09-18 08:38 | General Progress Note ---
Assessment/Plan Problem List: (1) Bowel perforation ICD Codes: K63.1 - Perforation of intestine (nontraumatic) SNOMED: 61033090 (2) Anemia ICD Codes: D64.9 - Anemia, unspecified SNOMED: 826735293, 759002763 Qualifiers: Qualified Codes: D64.9 - Anemia, unspecified (3) Sepsis ICD Codes: A41.9 - Sepsis, unspecified organism SNOMED: 18523761, 800578876 Qualifiers: Qualified Codes: A41.9 - Sepsis, unspecified organism; R65.20 - Severe sepsis without septic shock; J96.01 - Acute respiratory failure with hypoxia (4) Tachycardia ICD Codes: R00.0 - Tachycardia, unspecified SNOMED: 0606263 (5) Fever ICD Codes: R50.9 - Fever, unspecified SNOMED: 905824648 (6) HCAP (healthcare-associated pneumonia) ICD Codes: J18.9 - Pneumonia, unspecified organism SNOMED: 395050098, 579145423 (7) Acute respiratory failure with hypoxia ICD Codes: J96.01 - Acute respiratory failure with hypoxia SNOMED: 78321903, 667737377 Status: stable Assessment/Plan: dc feeds follow up cxr and labs bipap resp care o2 dvt/stress ulcer prophylaxis check duplex ?PE cont iv abx per id tenuous d/w cards x 5 mins Subjective ROS Limited/Unobtainable: No Constitutional: Reports: malaise, weakness HEENT: Reports: no symptoms Cardiovascular: Reports: no symptoms Respiratory: Reports: shortness of breath Gastrointestinal/Abdominal: Reports: no symptoms Genitourinary: Reports: no symptoms Neurologic/Psychiatric: Reports: depressed Endocrine: Reports: no symptoms Hematologic/Lymphatic: Reports: no symptoms Allergies: Coded Allergies: No Known Allergies (Unverified , 09/12/19) All Systems: reviewed and negative except above Subjective suddenly more tachypneic and tachycardic. had fevers last night. no reports of vomiting. Low on o2 on abg-100%NRB currently. labs and cxr are currently pending. on iv abx. alert. Objective Last 24 Hour Vital Signs Date Time Temp Pulse Resp B/P (MAP) Pulse Ox O2 Delivery O2 Flow Rate FiO2 09/18/19 08:20 154 144/83 09/18/19 08:00 100 Non-Rebreather 2.0 28 09/18/19 04:00 99.1 90 21 109/63 (78) 100 09/18/19 04:00 89 09/18/19 00:00 99.5 95 22 117/65 (82) 99 09/18/19 00:00 86 09/17/19 21:00 Nasal Cannula 2.0 09/17/19 20:48 100.1 09/17/19 20:19 127 154/91 09/17/19 20:00 115 09/17/19 20:00 100.9 127 23 154/91 (112) 98 09/17/19 19:58 98 Nasal Cannula 2.0 28 09/17/19 16:00 98.0 109 20 156/87 (110) 97 09/17/19 16:00 111 09/17/19 12:00 91 09/17/19 11:38 98.1 93 18 133/65 (87) 96 09/17/19 09:00 Nasal Cannula 2.0 09/17/19 08:54 102 136/74 Intake and Output 09/17/19 09/18/19 19:00 07:00 Intake Total 720 ml 550 ml Output Total 1400 ml 1890 ml Balance -680 ml -1340 ml Free Water 120 ml Tube Feeding 600 ml 550 ml Output Urine Total 1400 ml 1890 ml # Bowel Movements 2 Laboratory Tests 09/17/19 13:05: POC Whole Blood Glucose 146H 09/17/19 17:02: POC Whole Blood Glucose 196H 09/17/19 17:03: POC Whole Blood Glucose 165H 09/17/19 20:22: POC Whole Blood Glucose 145H 09/18/19 05:54: POC Whole Blood Glucose 189H 09/18/19 08:00: Arterial Blood pH 7.404, Arterial Blood Partial Pressure CO2 28.6L, Arterial Blood Partial Pressure O2 75.0, Arterial Blood HCO3 21.5L, Arterial Blood Oxygen Saturation 94.7L, Arterial Blood Base Excess -0.7, Sameer Test Positive 09/18/19 08:05: White Blood Count [Pending], Red Blood Count [Pending], Hemoglobin [Pending], Hematocrit [Pending], Mean Corpuscular Volume [Pending], Mean Corpuscular Hemoglobin [Pending], Mean Corpuscular Hemoglobin Concent [Pending], Red Cell Distribution Width [Pending], Platelet Count [Pending], Mean Platelet Volume [ Pending], Neutrophils (%) (Auto) [Pending], Lymphocytes (%) (Auto) [Pending], Monocytes (%) (Auto) [Pending], Eosinophils (%) (Auto) [Pending], Basophils (%) (Auto) [Pending], Sodium Level [Pending], Potassium Level [Pending], Chloride Level [Pending], Carbon Dioxide Level [Pending], Blood Urea Nitrogen [Pending], Creatinine [Pending], Estimat Glomerular Filtration Rate [Pending], Glucose Level [Pending], Calcium Level [Pending], Magnesium Level [Pending], Total Bilirubin [Pending], Aspartate Amino Transf (AST/SGOT) [Pending], Alanine Aminotransferase (ALT/SGPT) [Pending], Alkaline Phosphatase [Pending], Pro-B- Type Natriuretic Peptide [Pending], Total Protein [Pending], Albumin [Pending], Globulin [Pending] Height (Feet): 6 Weight (Pounds): 179 Objective General Appearance: WD/WN, lethargic, confused, cachetic. tachypneic- mod to severe distress EENT: PERRL/EOMI, normal ENT inspection Neck: non-tender, normal alignment Cardiovascular: normal rate, regular rhythm Respiratory/Chest: + respiratory distress, + accessory muscle use, rhonchi - bilaterally Abdomen: normal bowel sounds, non tender, soft, no organomegaly, no mass Edema: no edema noted Arm (L), no edema noted Arm (R), no edema noted Leg (L), no edema noted Leg (R), no edema noted Pedal (L), no edema noted Pedal (R), no edema noted Generalized Neurologic: disoriented, aphasia Skin: normal pigmentation Lymphatic: normal anterior cervical (L), normal anterior cervical (R) Aaron Meza MD Sep 18, 2019 08:38
[2019-09-18] MEDS: Pantoprazole Inj IVP SCH (09:00)
[2019-09-18] MEDS: Metoprolol Tartrate 50mg tab ORAL SCH (09:00)
[2019-09-18 09:11] LABS: ALANINE AMINOTRANSFERASE 28 U/L (12-78); ALBUMIN/GLOBULIN RATIO 0.4 (1.0-2.7); ALKALINE PHOSPHATASE 227 U/L (46-116); ANION GAP 11 mmol/L (5-15); ASPARTATE AMINO TRANSFERASE 25 U/L (15-37); BILIRUBIN,TOTAL 0.4 MG/DL (0.2-1.0); BLOOD UREA NITROGEN 12 mg/dL (7-18); CALCIUM 8.9 MG/DL (8.5-10.1); CARBON DIOXIDE 26 MMOL/L (21-32); CHLORIDE 98 MMOL/L (98-107); CREATININE 0.9 MG/DL (0.55-1.30); POTASSIUM 4.3 MMOL/L (3.5-5.1); SODIUM 135 MMOL/L (136-145)
--- NOTE | 2019-09-18 09:23 | Diagnostic Imaging Report ---
EXAM: XR Chest, 1 View CLINICAL HISTORY: SOB TECHNIQUE: Frontal view of the chest. COMPARISON: Chest x-ray 09/16/19 FINDINGS: Lungs: Hyperinflated lungs of COPD. Bilateral airspace opacities are more prominent in the perihilar region than prior study. Similar scarring in the right lung apex. Pleural space: Unremarkable. No pneumothorax. Heart: Unremarkable. No cardiomegaly. Mediastinum: Unremarkable. Bones/joints: Unremarkable. IMPRESSION: 1. Hyperinflated lungs of COPD. 2. Bilateral airspace opacities are more prominent in the perihilar regions than prior study.
--- NOTE | 2019-09-18 10:01 | Surgery Progress Note ---
Surgery Progress Note Subjective Additional Comments leukocytosis afebrile HD stable respiratory stable CXR noted with hilar no n/v Objective Last 24 Hour Vital Signs Date Time Temp Pulse Resp B/P (MAP) Pulse Ox O2 Delivery O2 Flow Rate FiO2 09/18/19 09:00 143 144/83 09/18/19 09:00 Bi-pap 09/18/19 08:55 143 32 96 Bi-Pap 50 09/18/19 08:53 143 32 96 50 09/18/19 08:20 154 144/83 09/18/19 08:00 98.1 140 36 144/83 (103) 87 09/18/19 08:00 100 Non-Rebreather 2.0 28 09/18/19 04:00 99.1 90 21 109/63 (78) 100 09/18/19 04:00 89 09/18/19 00:00 99.5 95 22 117/65 (82) 99 09/18/19 00:00 86 09/17/19 21:00 Nasal Cannula 2.0 09/17/19 20:48 100.1 09/17/19 20:19 127 154/91 09/17/19 20:00 115 09/17/19 20:00 100.9 127 23 154/91 (112) 98 09/17/19 19:58 98 Nasal Cannula 2.0 28 09/17/19 16:00 98.0 109 20 156/87 (110) 97 09/17/19 16:00 111 09/17/19 12:00 91 09/17/19 11:38 98.1 93 18 133/65 (87) 96 I&O Intake and Output 09/17/19 09/18/19 19:00 07:00 Intake Total 720 ml 550 ml Output Total 1400 ml 1890 ml Balance -680 ml -1340 ml Free Water 120 ml Tube Feeding 600 ml 550 ml Output Urine Total 1400 ml 1890 ml # Bowel Movements 2 Dressing: saturated Wound: clean Cardiovascular: RSR Respiratory: clear, decreased breath sounds Abdomen: soft, non-tender, present bowel sounds Extremities: no tenderness, no cyanosis Laboratory Tests Test 09/17/19 13:05 09/17/19 17:02 09/17/19 17:03 09/17/19 20:22 POC Whole Blood Glucose 146 MG/DL (74-106) H 196 MG/DL (74-106) H 165 MG/DL (74-106) H 145 MG/DL (74-106) H Test 09/18/19 05:54 09/18/19 08:00 09/18/19 08:05 POC Whole Blood Glucose 189 MG/DL (74-106) H Arterial Blood pH 7.404 (7.350-7.450) Arterial Blood Partial Pressure CO2 28.6 mmHg (35.0-45.0) L Arterial Blood Partial Pressure O2 75.0 mmHg (75.0-100.0) Arterial Blood HCO3 21.5 mmol/L (22.0-26.0) L Arterial Blood Oxygen Saturation 94.7 % (95-100) L Arterial Blood Base Excess -0.7 (-2-2) Sameer Test Positive White Blood Count 12.2 K/UL (4.8-10.8) #H Red Blood Count 4.23 M/UL (4.70-6.10) L Hemoglobin 13.0 G/DL (14.2-18.0) L Hematocrit 40.1 % (42.0-52.0) L Mean Corpuscular Volume 95 FL (80-99) Mean Corpuscular Hemoglobin 30.8 PG (27.0-31.0) Mean Corpuscular Hemoglobin Concent 32.5 G/DL (32.0-36.0) Red Cell Distribution Width 13.0 % (11.6-14.8) Platelet Count 559 K/UL (150-450) H Mean Platelet Volume 4.9 FL (6.5-10.1) L Neutrophils (%) (Auto) 78.1 % (45.0-75.0) H Lymphocytes (%) (Auto) 13.7 % (20.0-45.0) L Monocytes (%) (Auto) 5.2 % (1.0-10.0) Eosinophils (%) (Auto) 2.3 % (0.0-3.0) Basophils (%) (Auto) 0.6 % (0.0-2.0) Sodium Level 135 MMOL/L (136-145) L Potassium Level 4.3 MMOL/L (3.5-5.1) Chloride Level 98 MMOL/L (98-107) Carbon Dioxide Level 26 MMOL/L (21-32) Anion Gap 11 mmol/L (5-15) Blood Urea Nitrogen 12 mg/dL (7-18) Creatinine 0.9 MG/DL (0.55-1.30) Estimat Glomerular Filtration Rate > 60 mL/min (>60) Glucose Level 86 MG/DL (74-106) Calcium Level 8.9 MG/DL (8.5-10.1) # Magnesium Level 1.9 MG/DL (1.8-2.4) Total Bilirubin 0.4 MG/DL (0.2-1.0) Aspartate Amino Transf (AST/SGOT) 25 U/L (15-37) Alanine Aminotransferase (ALT/SGPT) 28 U/L (12-78) Alkaline Phosphatase 227 U/L (46-116) H Pro-B-Type Natriuretic Peptide 1484 pg/mL (0-125) H Total Protein 7.1 G/DL (6.4-8.2) Albumin 2.0 G/DL (3.4-5.0) L Globulin 5.1 g/dL Albumin/Globulin Ratio 0.4 (1.0-2.7) L Plan Problems: (1) Anemia (2) Sepsis Assessment & Plan: febrile, tachycardic, abnormal labs, sob, respiratory decline covid neg in ED recent colonoscopy with perf per report treated conservatively abd exam limited given medical condition but seemingly benign non distended, no pain upon exam CXR noted. labs reviewed K[facility] pending does not seem to be having acute abdominal process but concerning and ddx given recent history no acute surgical intervention planned will follow with serial exams and recs thank you [facility] noted.. . likely ileus repeat in AM hold feeds for now IV fluids discussed with team [facility] reviewed improved ileus improved Tube feeds resumed will monitor residuals and tolerance +BM tube feeds as tolerated Abx pna? trend labs (3) Acute respiratory failure with hypoxia (4) HCAP (healthcare-associated pneumonia) (5) Fever (6) Shortness of breath (7) Tachycardia (8) Suspected COVID-19 virus infection Arnaldo Pinon Sep 18, 2019 10:01
[2019-09-18] MEDS ORDERED: NS 275ml ONE ×2 (10:05→10:07)
[2019-09-18] MEDS ORDERED: D5NS 1000ml IV ONE (10:05)
[2019-09-18] MEDS ORDERED: Tubing IV Secondary IV ONE (10:07)
[2019-09-18 12:00] VITALS: BP 102/60
--- NOTE | 2019-09-18 12:05 | Diagnostic Imaging Report ---
EXAM: XR Abdomen, one Views CLINICAL HISTORY: NGT TECHNIQUE: Frontal view of the abdomen/pelvis . COMPARISON: KUB 09/14/19 FINDINGS: Lower thorax: Bilateral hazy lung opacities. Prominent mediastinum. Gastrointestinal tract: Gaseous small bowel loops in the abdomen. Bones/joints: Unremarkable. Tubes, lines and devices: Feeding tube tip is curled in the fundus of the stomach. IMPRESSION: 1. Feeding tube tip is curled in the fundus of the stomach. 2. Gaseous small bowel loops in the abdomen are increased. 3. Bilateral hazy lung opacities. Prominent mediastinum.
--- NOTE | 2019-09-18 12:52 | Infectious Diseases Prog Note ---
Assessment/Plan Assessment/Plan A 1. pneumonia COVID 19 test negative x 2 2. diabetes mellitus 3. hypertension 4. Anemia 5. Hypoxic respiratory failure 6. Tachycardia P 1. continue Zosyn 2. will follow up cultures Subjective ROS Limited/Unobtainable: Yes Respiratory: Reports: other - desaturated started on BIPAP Allergies: Coded Allergies: No Known Allergies (Unverified , 09/12/19) Objective Last 24 Hour Vital Signs Date Time Temp Pulse Resp B/P (MAP) Pulse Ox O2 Delivery O2 Flow Rate FiO2 09/18/19 11:16 141 24 92 50 09/18/19 09:00 143 144/83 09/18/19 09:00 Bi-pap 09/18/19 08:55 143 32 96 Bi-Pap 50 09/18/19 08:53 143 32 96 50 09/18/19 08:20 154 144/83 09/18/19 08:00 98.1 140 36 144/83 (103) 87 09/18/19 08:00 100 Non-Rebreather 2.0 28 09/18/19 07:45 148 09/18/19 04:00 99.1 90 21 109/63 (78) 100 09/18/19 04:00 89 09/18/19 00:00 99.5 95 22 117/65 (82) 99 09/18/19 00:00 86 09/17/19 21:00 Nasal Cannula 2.0 09/17/19 20:48 100.1 09/17/19 20:19 127 154/91 09/17/19 20:00 115 09/17/19 20:00 100.9 127 23 154/91 (112) 98 09/17/19 19:58 98 Nasal Cannula 2.0 28 09/17/19 16:00 98.0 109 20 156/87 (110) 97 09/17/19 16:00 111 Height (Feet): 6 Weight (Pounds): 179 HEENT: mucous membranes moist Respiratory/Chest: decreased breath sounds, other - on BIPAP Cardiovascular: tachycardia Abdomen: soft, non tender, other - NG tube Neurologic/Psychiatric: unresponsiveness Laboratory Tests Test 09/17/19 13:05 09/17/19 17:02 09/17/19 17:03 09/17/19 20:22 POC Whole Blood Glucose 146 MG/DL (74-106) H 196 MG/DL (74-106) H 165 MG/DL (74-106) H 145 MG/DL (74-106) H Test 09/18/19 05:54 09/18/19 08:00 09/18/19 08:05 POC Whole Blood Glucose 189 MG/DL (74-106) H Arterial Blood pH 7.404 (7.350-7.450) Arterial Blood Partial Pressure CO2 28.6 mmHg (35.0-45.0) L Arterial Blood Partial Pressure O2 75.0 mmHg (75.0-100.0) Arterial Blood HCO3 21.5 mmol/L (22.0-26.0) L Arterial Blood Oxygen Saturation 94.7 % (95-100) L Arterial Blood Base Excess -0.7 (-2-2) Sameer Test Positive White Blood Count 12.2 K/UL (4.8-10.8) #H Red Blood Count 4.23 M/UL (4.70-6.10) L Hemoglobin 13.0 G/DL (14.2-18.0) L Hematocrit 40.1 % (42.0-52.0) L Mean Corpuscular Volume 95 FL (80-99) Mean Corpuscular Hemoglobin 30.8 PG (27.0-31.0) Mean Corpuscular Hemoglobin Concent 32.5 G/DL (32.0-36.0) Red Cell Distribution Width 13.0 % (11.6-14.8) Platelet Count 559 K/UL (150-450) H Mean Platelet Volume 4.9 FL (6.5-10.1) L Neutrophils (%) (Auto) 78.1 % (45.0-75.0) H Lymphocytes (%) (Auto) 13.7 % (20.0-45.0) L Monocytes (%) (Auto) 5.2 % (1.0-10.0) Eosinophils (%) (Auto) 2.3 % (0.0-3.0) Basophils (%) (Auto) 0.6 % (0.0-2.0) Sodium Level 135 MMOL/L (136-145) L Potassium Level 4.3 MMOL/L (3.5-5.1) Chloride Level 98 MMOL/L (98-107) Carbon Dioxide Level 26 MMOL/L (21-32) Anion Gap 11 mmol/L (5-15) Blood Urea Nitrogen 12 mg/dL (7-18) Creatinine 0.9 MG/DL (0.55-1.30) Estimat Glomerular Filtration Rate > 60 mL/min (>60) Glucose Level 86 MG/DL (74-106) Calcium Level 8.9 MG/DL (8.5-10.1) # Magnesium Level 1.9 MG/DL (1.8-2.4) Total Bilirubin 0.4 MG/DL (0.2-1.0) Aspartate Amino Transf (AST/SGOT) 25 U/L (15-37) Alanine Aminotransferase (ALT/SGPT) 28 U/L (12-78) Alkaline Phosphatase 227 U/L (46-116) H Pro-B-Type Natriuretic Peptide 1484 pg/mL (0-125) H Total Protein 7.1 G/DL (6.4-8.2) Albumin 2.0 G/DL (3.4-5.0) L Globulin 5.1 g/dL Albumin/Globulin Ratio 0.4 (1.0-2.7) L Current Medications Medications (Trade) Dose Ordered Sig/Brooke Route PRN Reason Start Time Stop Time Status Last Admin Dose Admin Acetaminophen (Tylenol) 650 mg Q4H PRN ORAL Temp >100.5 09/17/19 20:15 10/17/19 20:14 09/17/19 20:18 Barium Sulfate (Varibar Honey) 250 ml NOW PRN MC RAD 09/16/19 13:45 09/19/19 13:40 Barium Sulfate (Varibar Moonshine) 240 ml NOW PRN MC RAD 09/16/19 13:45 09/19/19 13:40 Barium Sulfate (Varibar Pudding) 230 ml NOW PRN MC RAD 09/16/19 13:45 09/19/19 13:40 Dextrose (Dextrose 50%) 25 ml Q30M PRN IV Hypoglycemia 09/16/19 03:45 12/12/19 09:44 Dextrose (Dextrose 50%) 50 ml Q30M PRN IV Hypoglycemia 09/16/19 03:45 12/12/19 09:44 Finasteride (Proscar) 5 mg DAILY ORAL 09/18/19 09:00 12/17/19 08:59 Insulin Aspart (NovoLOG) BEFORE MEALS AND HS SUBQ 09/16/19 06:30 12/12/19 11:29 09/18/19 05:58 Iron Sucrose 100 mg/Sodium Chloride 60 ml @ 240 mls/hr BEDTIME IV 09/16/19 21:00 09/18/19 21:14 09/17/19 20:22 Metoprolol Tartrate (Lopressor) 50 mg Q12HR ORAL 09/17/19 21:00 12/16/19 20:59 09/17/19 20:19 Pantoprazole (Protonix) 40 mg DAILY IVP 09/16/19 09:00 10/12/19 08:59 09/18/19 09:00 Piperacillin Sod/ Tazobactam Sod 3.375 gm/Sodium Chloride 110 ml @ 27.5 mls/hr EVERY 8 HOURS IVPB 09/16/19 06:00 09/19/19 10:29 09/18/19 05:57 Tamsulosin HCl (Flomax) 0.4 mg BEDTIME ORAL 09/17/19 21:00 10/17/19 20:59 09/17/19 20:18 Reggie Wahl MD Sep 18, 2019 12:52
--- NOTE | 2019-09-18 14:52 | Emergency Room Report ---
Physical Exam Call to the 2 E. for CODE BLUE. Patient was on BiPAP with a heart rate of 140. His heart rate decreased to the 40s. A code was called. He is a no CPR but intubate. When I arrived epinephrine 1 amp had already been given. Last 24 Hour Vital Signs Date Time Temp Pulse Resp B/P (MAP) Pulse Ox O2 Delivery O2 Flow Rate FiO2 09/18/19 12:00 100.8 143 18 102/60 (74) 92 09/18/19 11:36 140 09/18/19 11:16 141 24 92 50 09/18/19 09:00 143 144/83 09/18/19 09:00 Bi-pap 09/18/19 08:55 143 32 96 Bi-Pap 50 09/18/19 08:53 143 32 96 50 09/18/19 08:20 154 144/83 09/18/19 08:00 98.1 140 36 144/83 (103) 87 09/18/19 08:00 100 Non-Rebreather 2.0 28 09/18/19 07:45 148 09/18/19 04:00 99.1 90 21 109/63 (78) 100 09/18/19 04:00 89 09/18/19 00:00 99.5 95 22 117/65 (82) 99 09/18/19 00:00 86 09/17/19 21:00 Nasal Cannula 2.0 09/17/19 20:48 100.1 09/17/19 20:19 127 154/91 09/17/19 20:00 115 09/17/19 20:00 100.9 127 23 154/91 (112) 98 09/17/19 19:58 98 Nasal Cannula 2.0 28 09/17/19 16:00 98.0 109 20 156/87 (110) 97 09/17/19 16:00 111 Sp02 EP Interpretation: reviewed, abnormal - Interpreted as low by me General Appearance: thin, other, Chronically Ill Eyes: bilateral eye other Neck: other - Not moving head Respiratory: lungs clear, other - Assisted ventilations with bag valve mask Cardiovascular #1: bradycardia - No pulses Cardiovascular #2: 0 femoral (R) - Except with CPR Gastrointestinal: scaphoid Musculoskeletal: other - Flaccid and atrophy Neurologic: other - Unresponsive Psychiatric: other - Unresponsive Skin: cyanosis, mottled - Poor turgor CPR/Code Blue CPR/Code Blue Narrative Patient was being bagged but because of the no chest compressions in order no and CPR was being performed. Epinephrine 1 amp had already been given. Patient had a heart rate of 50 on the monitor. No pulses Atropine was given. Patient became asystolic. We were setting up to intubate at that time. There were problems with the monitor only registering 1-lead. Epinephrine was repeated at this time. The patient was intubated with good breath sounds and color change. The patient remained in asystole and epinephrine was repeated. Resuscitation efforts were halted at 1431 and the patient was pronounced at that time. The final rhythm was asystole. Intubation Intubation : Consent: Emergent Intubation Method: orotracheal Tube Size (cm): 7.5 Medications: Other - None Breath Sounds after Intubation: equal Intubation Complications: no complications Post Intubation Xray: No Attempts: One Patient Tolerated: Well Medical Decision Making Diagnostic Impression: Primary Impression: Cardiopulmonary arrest Additional Impression: Respiratory arrest ER Course Patient became bradycardic on BiPAP. A CODE BLUE was called. Assisted ventilations were provided with a bag valve mask. The patient had orders for no chest compressions. Epinephrine had been given prior to my arrival. No compressions were performed per CODE STATUS. After ACLS protocol followed per medications the patient remained in asystole. Patient was pronounced at 1431. Rhythm Strip Diag. Results EP Interpretation: yes Rhythm: other - Asystole Status: worsened Disposition: Condition: Referrals: NOT CHOSEN IPA/,REFERRING (PCP) Avila Davies MD Sep 18, 2019 14:52
--- NOTE | 2019-09-18 18:30 | Progress Note ---
DATE: 09/18/2019 CARDIOLOGY PROGRESS NOTE SUBJECTIVE: The patient had fevers last night. He is tachycardic and tachypneic this morning. Case was discussed with the primary attending. The patient was given antipyretics and re-cultured last night. PHYSICAL EXAMINATION: LUNGS: Bilateral breath sounds. Rhonchi. HEART: Regular rhythm. Rapid rate. Normal S1, S2. Monitor sinus tachycardia. ABDOMEN: Slightly distended, but soft. EXTREMITIES: No edema. LABORATORY DATA: ABG this morning 7.40, 29, and 75. White count 12 and hemoglobin 13. Sodium 135, potassium 4.3, bicarb 26, BUN 12, creatinine 0.9, and magnesium 1.9. Pro natriuretic peptide has slightly decreased to 1484. Chest x-ray reveals increased perihilar upper lobe infiltrate. Abdominal x-ray is notable for slightly increased gaseous small bowel loops. IMPRESSION: 1. Respiratory failure, possible aspiration and worsening pneumonia. 2. Sinus tachycardia. 3. Fevers due to sepsis. 4. Recent bowel perforation, recovered. PLAN: 1. Antimicrobials. 2. BiPAP support. 3. Respiratory hygiene. 4. Cardiac monitoring. 5. Hold feedings. 6. The patient has advanced directives, but no CPR but intubation okay. 7. Current ABG does not warrant intubation presently. Avila Ramos M.D. DR: RAMSEY JOB#: [id number] CC:
--- NOTE | 2019-09-19 16:36 | Discharge Summary ---
Discharge Summary Discharge Summary _ SUMMARY DATE OF ADMISSION: 09/12/2019 DATE OF DISCHARGE: 09/18/2019 REASON FOR ADMISSION: 4 years old male, resident of residential facility, with past medical history of COPD, hypertension, diabetes mellitus, was sent for evaluation due to shortness of breath and tachycardia. Onset started prior to according to paramedics. Patient by himself unable to provide all the information. Per transmission and coordination engineer patient was tachycardic and hypoxic. No reported cough or fever. No nausea or vomiting. Patient was hypoxic patient was placed on on nonrebreather mask and brought to ED for evaluation upon evaluation patient was febrile 100.6101 and then later 103.5 tachycardic with a heart rate 143 tachypneic with respiratory rate 43 pulse oximetry was 97% on 100% nonrebreather mask. Laboratory work-up revealed no leukocytosis hemoglobin 8.5 hematocrit 25.4 platelet count 611. Sodium 133, BUN 22, creatinine 0.9. Glucose 233. Total CK 506 troponin negative lactic acid 1.4 ABG and nonrebreathing mask were stable urinalysis revealed no evidence of urinary tract infection +1 protein chest x-ray demonstrated severe emphysematous changes with hyperinflation. Airspace opacity within the bilateral lower lobes and right upper lobe suspicious for superimposed multifocal infiltrates. No pneumothorax. No definite pleural effusion. Heart was enlarged. Aorta was markedly tortuous. Patient was swab for COVID-19 septic work-up initiated patient admitted for acute respiratory failure suspected COVID-19 sepsis pneumonia anemia CONSULTANTS: tipple operator pulmonary Dr. Diaz ID specialist Dr. Flanagan surgery Dr. Pinon [facility] COURSE: Patient admitted to telemetry floor. Patient started on broad-spectrum antibiotics and IV fluids. Automatic Data Processing Planner ,college athletic director ,surgery and ID specialist followed. Overall prognosis remained poor. CODE STATUS was no chest compression Supplemental oxygen provided and titrated to keep pulse oximetry above 90% . Patient initially remained on 100% nonrebreathing mask , and then was able to be weaned down to oxygen via nasal cannula. Patient was followed-up with ABG and chest x-ray. Patient was febrile . Blood cultures were negative. COVID-19 x2 negative. Sputum culture was negative. Repeated blood culture also revealed no evidence of growth. Patient was treated for pneumonia as per ID specialist recommendation. Venous duplex bilateral lower extremity revealed no evidence of acute DVT. DVT prophylaxis provided. NG tube was placed for nutritional support. Abdominal x-ray confirmed placement of NG tube , but noted prominent bowel loops , possibly representing mildly dilated small bowel versus nondilated colon. Most likely ileus ,but could represent small bowel obstruction. Surgeon closely followed. Patient was kept n.p.o. on bowel rest Follow-up KUB revealed improvement. Surgeon cleared patient to start tube feeding . Feeding resumed with close monitoring of feeding tolerance and residuals. Strict aspiration precaution maintained. Tube feeding formula and protein supplements provided as per registered dietitian recommendation Hemoglobin and hematocrit were closely monitored with goal to keep hemoglobin above 7. Patient undergone transfusion of 1 unit of packed red blood cells . Stool for occult blood was positive. GI prophylaxis provided Cardiovascular regimen was titrated to optimize volume status and blood pressure control. IV fluids stopped , as patient was able to tolerate tube feeding Renal parameters and electrolytes were closely monitored ,electrolytes corrected as needed, and nephrotoxic's were avoided . Potassium and magnesium were replaced. On 09/17 patient suddenly became tachypneic and tachycardic , had fever overnight. No reported vomiting. Patient was hypoxic, and placed back on 100% NRM . Tube feeding was held. Abdominal x-ray revealed that the feeding tube was curled in the fundus of the stomach. Gaseous small bowel loops in the abdomen were increased. Code blue was called on 09/17. Patient was on the BiPAP at that time . Patient is with no chest compression status, but intubation ok. Patient was orally intubated. ACLS medications provided. Despite all resuscitative attempts, patient remained in asystole. Patient was pronounced on 09/13/2019 at 14: 31. Cause of : asystolic cardiopulmonary arrest FINAL DIAGNOSES: s/p cardiopulmonary arrest Severe sepsis Healthcare associated pneumonia Possible aspiration Acute hypoxemic respiratory failure Paralytic ileus Anemia, requiring blood transfusion Type 2 diabetes mellitus Suspected COVID-19- ruled out Paroxysmal atrial fibrillation Hypertensive heart disease Dehydration Hypokalemia Hypomagnesemia Severe protein calorie malnutrition BPH Recent bowel perforation Tachyarrhythmia I have been assigned to dictate discharge summary for this account. I was not involved in the patient's management. Mely Augustine NP Sep 19, 2019 16:36
== END 2019-09-18 14:31 | disposition expired | DRG 871 ==
LOC: EDBD 03:54 → EMR 04:23 → EDBEDREQSVC 04:31 → 2W 04:38 → EDBEDREQ 05:28 → 2E 09-16 03:15
DX: A41.9 Sepsis, unspecified organism (principal); J96.01 Acute respiratory failure with hypoxia; J18.9 Pneumonia, unspecified organism; E43 Unspecified severe protein-calorie malnutrition; K63.1 Perforation of intestine (nontraumatic); I50.33 Acute on chronic diastolic (congestive) heart failure; K56.0 Paralytic ileus; Z68.1 Body mass index [BMI] 19.9 or less, adult; Y95 Nosocomial condition; R65.20 Severe sepsis without septic shock; J44.9 Chronic obstructive pulmonary disease, unspecified; E11.9 Type 2 diabetes mellitus without complications; Z20.828 Contact with and (suspected) exposure to other viral communicable diseases; D64.9 Anemia, unspecified; I48.0 Paroxysmal atrial fibrillation; E86.0 Dehydration; E87.6 Hypokalemia; E83.42 Hypomagnesemia; N40.0 Benign prostatic hyperplasia without lower urinary tract symptoms; I51.3 Intracardiac thrombosis, not elsewhere classified; I11.0 Hypertensive heart disease with heart failure
CPT/HCPCS: 36415; 36600; 71045; 74018; 74230; 80053; 80202; 81003; 82270; 82550; 82553; 82803; 82962; 83540; 83550; 83605; 83735; 83880; 84484; 85007; 85025; 86850; 86900; 86901; 86920; 87040; 87070; 87081; 87205; 92610; 92950; 93005; 93970; 94660; 94664; 96361; 96365; 96367; 96368; 96375; 99291; J1815; J7030; J8499; U0002